=== PATIENT | male | born 2000 | race Caucasian/White ===

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

== ENCOUNTER 2019-03-21 17:32 | Emergency (ER) | payer OTHER ==
[2019-03-21 18:06] VITALS: RESP 18
[2019-03-21 18:57] LABS: Amorphous Sediment,Urine Few /hpf; Appearance,Urine Turbid (Clear); Bacteria,Urine Few /hpf; Bilirubin,Urine Negative (Negative); Blood,Urine Negative (Negative); Color,Urine Yellow; Glucose,Urine (UA) Negative (Negative); Ketones,Urine Negative (Negative); Leukocyte Esterase,Urine Negative (Negative); Mucus,Urine Many /hpf; Nitrite,Urine Negative (Negative); Protein,Urine Trace (Negative); WBC,Urine 3 /hpf (0-5)
[2019-03-21 19:04] LABS: Amphetamine Screen,Urine Not Detected (NotDetected); Barbiturate Screen,Urine Not Detected (NotDetected); Benzodiazepines Screen,Urine Not Detected (NotDetected); Cocaine Screen,Urine Not Detected (NotDetected); Methadone Screen, Urine Not Detected (NotDetected); Opiate Screen,Urine Not Detected (NotDetected); Oxycodone Screen, Urine Not Detected (NotDetected); Phencyclidine Screen,Urine Not Detected (NotDetected); Tricyclic Antidepressant,Urine Not Detected (NotDetected); Urn Cannabinoid Scrn Detected (NotDetected)
--- NOTE | 2019-03-21 19:42 | ED ---
Psych HPI - General Source: patient, police Mode of arrival: ambulatory <Marcia Brown - Last Filed: 03/21/19 20:36> <Robert Castaneda - Last Filed: 03/21/19 23:10> - General Chief Complaint: Psychiatric Symptoms Stated Complaint: MENTALHEALTH Time Seen by Provider: 03/21/19 18:07 - History of Present Illness Initial Comments: 18-year-old male with history of depression presents today for chief complaint suicidal ideation. 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 Patient denies doing this. Patient states he did do this a few weeks ago because he was feeling suicidal for depression. Patient states that the [employer] came to his house at that time however he told them that he was not suicidal in the left. Patient denies any crisis homicidal ideation. Patient states he has suffered with depression. Remaining review of systems negative patient has no other complaints. Patient agreeable to EPS evaluation. (Marcia Brown) - Related Data Home Medications Medication Instructions Recorded Confirmed No Known Home Medications 03/21/19 03/21/19 Allergies Allergy/AdvReac Type Severity Reaction Status Date / Time venom-honey bee Allergy Anaphylaxis Verified 03/21/19 19:11 [bee venom (honey bee)] Review of Systems ROS Other: All systems not noted in ROS Statement are negative. <Marcia Brown - Last Filed: 03/21/19 20:36> ROS Other: All systems not noted in ROS Statement are negative. <Robert Castaneda - Last Filed: 03/21/19 23:10> ROS Statement: Those systems with pertinent positive or pertinent negative responses have been documented in the HPI. Past Medical History Past Medical History: No Reported History Additional Past Medical History / Comment(s): adhd History of Any Multi-Drug Resistant Organisms: None Reported Past Surgical History: Ear Surgery, Orthopedic Surgery Past Psychological History: ADD/ADHD Smoking Status: Current every day smoker Past Alcohol Use History: None Reported Past Drug Use History: None Reported <Marcia Brown - Last Filed: 03/21/19 20:36> General Exam Limitations: no limitations <Marcia Brown - Last Filed: 03/21/19 20:36> - General Exam Comments Initial Comments: General: The patient is awake and alert, in no distress, and does not appear acutely ill. Eye: +3 mm pupils are equal, round and reactive to light, extra-ocular movements are intact. No nystagmus. There is normal conjunctiva bilaterally. No signs of icterus. Ears, nose, mouth and throat: There are moist mucous membranes and no oral lesions. Neck: The neck is supple, there is no tenderness or JVD. No lacerations abrasions or redness of the neck. Cardiovascular: There is a regular rate and rhythm. No murmur, rub or gallop is appreciated. Respiratory: Lungs are clear to auscultation, respirations are non-labored, breath sounds are equal. No wheezes, stridor, rales, or rhonchi. Gastrointestinal: Soft, non-distended, non-tender abdomen without masses or organomegaly noted. There is no rebound or guarding present. Musculoskeletal: Normal ROM, no tenderness. Strength 5/5. Sensation intact. Pulses equal bilaterally 2+. Neurological: A&O x 3. CN II-XII intact, There are no obvious motor or sensory deficits. Coordination appears grossly intact. Speech is normal. Skin: Skin is warm and dry and no rashes or lesions are noted. Psychiatric: Cooperative, appropriate mood & affect, normal judgment. (Marcia Brown) Course <Robert Castaneda - Last Filed: 03/21/19 23:10> Vital Signs 03/21/19 18:03 Temperature 98.3 F Pulse Rate 108 H Respiratory 18 Rate Blood Pressure 166/67 O2 Sat by Pulse 98 Oximetry - Reevaluation(s) Reevaluation #1: 03/21/19 23:10 Medical record is reviewed and patient was made medically clear 03/21/19 23:10 patient was deemed stable for discharge psychiatry (Robert Castaneda) Medical Decision Making <Marcia Brown - Last Filed: 03/21/19 20:36> <Robert Castaneda - Last Filed: 03/21/19 23:10> - Medical Decision Making 18-year-old male presenting for psychiatric evaluation. Patient petitioned by his . Patient threatened suicide and attempted Stephie around his neck. Patient admits doing this previously. Patient amidst of depression and life stressors. Patient has no other complaints physical examination unremarkable. No evidence of neck injury. Patient will be medically cleared previous evaluation. Sign out patient's care to Dr. Castaneda at 8:30PM given shift change. (Marcia Brown) 17 male seen evaluated with psychiatry, patient stable for discharge home, not certain currently suicidal (Robert Castaneda) - Lab Data Lab Results 03/21/19 Range/Units 18:40 Urine Color Yellow Urine Appearance Turbid (Clear) Urine pH 7.0 (5.0-8.0) Ur Specific [place] 1.020 (1.001-1.035) Urine Protein Trace H (Negative) Urine Glucose (UA) Negative (Negative) Urine Ketones Negative (Negative) Urine Blood Negative (Negative) Urine Nitrite Negative (Negative) Urine Bilirubin Negative (Negative) Urine Urobilinogen 4.0 (<2.0) mg/dL Ur Leukocyte Esterase Negative (Negative) Urine WBC 3 (0-5) /hpf Amorphous Sediment Few H (None) /hpf Urine Bacteria Few H (None) /hpf Urine Mucus Many H (None) /hpf Urine Opiates Screen Not Detected (NotDetected) Ur Oxycodone Screen Not Detected (NotDetected) Urine Methadone Screen Not Detected (NotDetected) Ur Propoxyphene Screen Not Detected (NotDetected) Ur Barbiturates Screen Not Detected (NotDetected) U Tricyclic Antidepress Not Detected (NotDetected) Ur Phencyclidine Scrn Not Detected (NotDetected) Ur Amphetamines Screen Not Detected (NotDetected) U Methamphetamines Scrn Not Detected (NotDetected) U Benzodiazepines Scrn Not Detected (NotDetected) Urine Cocaine Screen Not Detected (NotDetected) U Marijuana (THC) Screen Detected H (NotDetected) Disposition <Marcia Brown - Last Filed: 03/21/19 20:36> Is patient prescribed a controlled substance at d/c from ED?: No <Robert Castaneda - Last Filed: 03/21/19 23:10> Clinical Impression: Depression Disposition: HOME SELF-CARE Condition: Fair Instructions (If sedation given, give patient instructions): Depression (ED) Referrals: Amrit Blum MD [Primary Care Provider] - 1-2 days
[2019-03-21 23:39] VITALS: BP 117/63; PULSE 65; TEMP 97.8
== END 2019-03-21 23:33 | disposition home or self-care (01) ==
LOC: EC 17:32 → EEVIPCON 17:32 → EC 23:33
DX: F32.9 Major depressive disorder, single episode, unspecified (principal); R45.851 Suicidal ideations; Z63.79 Other stressful life events affecting family and household; F17.200 Nicotine dependence, unspecified, uncomplicated; Z91.030 Bee allergy status
CPT/HCPCS: 80306; 81001; 82075; 99285

== ENCOUNTER 2019-04-15 02:24 | Emergency (ER) | payer OTHER ==
[2019-04-15 02:31] VITALS: BP 116/67; PULSE 90; RESP 18; TEMP 97.7
[2019-04-15] MEDS ORDERED: ACETAMINOPHEN TAB 500 MG TAB PO STA (02:52)
--- NOTE | 2019-04-15 03:22 | CT ---
EXAMINATION TYPE: CT brain kell giang con DATE OF EXAM: 04/15/2019 COMPARISON: None HISTORY: headache with neck pain. CT DLP: 1414.5 mGycm Automated exposure control for dose reduction was used. TECHNIQUE: CT scan of the head and cervical spine are performed without contrast. FINDINGS: Ventricles and sulci appear normal. There is no mass effect nor midline shift. There is n o sign of intracranial hemorrhage. The calvarium is intact. The cervical vertebra have normal spacing and alignment. Posterior elements are intact. Facet joints appear normal. The skull base is intact. There is no bony destructive process. IMPRESSION: Negative CT scan of the brain. Negative CT scan cervical spine. No fracture.
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
== END 2019-04-15 03:53 | disposition home or self-care (01) ==
LOC: EC 02:24
DX: S06.0X0A Concussion without loss of consciousness, initial encounter (principal); M54.2 Cervicalgia; Z87.891 Personal history of nicotine dependence; Z91.030 Bee allergy status; V18.4XXA Pedal cycle driver injured in noncollision transport accident in traffic accident, initial encounter; Y93.89 Activity, other specified
CPT/HCPCS: 70450; 72125; 99284

== ENCOUNTER 2020-03-13 15:56 | Emergency (ER) | payer OTHER ==
[2020-03-13 16:07] VITALS: BP 126/60; TEMP 99.5
--- NOTE | 2020-03-13 17:18 | XR ---
EXAMINATION TYPE: XR chest 2V DATE OF EXAM: 03/13/2020 CLINICAL HISTORY: Cough TECHNIQUE: Frontal and lateral views of the chest are obtained. COMPARISON: 12/09/2018 chest radiograph FINDINGS: The cardiomediastinal silhouette is within normal limits for size. Pulmonary vasculature i s normal. There is no focal air space opacity, pleural effusion, or pneumothorax seen. The osseous st ructures are intact. IMPRESSION: No acute cardiopulmonary process.
--- NOTE | 2020-03-13 17:25 | ED ---
URI HPI - General Chief Complaint: Upper Respiratory Infection Stated Complaint: fever, congestion Time Seen by Provider: 03/13/20 16:07 Source: patient Mode of arrival: ambulatory Limitations: no limitations - History of Present Illness Initial Comments: 19yo male with no significant PMH presenting to the ER today for cc of cough, congestion and fever. Patient states for the past 2 days he has had nasal congestion, mild cough and has felt as though he has had a fever, denies recorded temperature. Patient denies nausea, vomiting, diarrhea. Patient denies chest pain, SOB. Patient appears well no acute distress. Patient denies sore throat, ear pain, neck stiffness, headaches. - Related Data Home Medications Medication Instructions Recorded Confirmed No Known Home Medications 03/21/19 03/21/19 Allergies Allergy/AdvReac Type Severity Reaction Status Date / Time venom-honey bee Allergy Anaphylaxis Verified 03/13/20 16:06 [bee venom (honey bee)] Review of Systems ROS Statement: Those systems with pertinent positive or pertinent negative responses have been documented in the HPI. ROS Other: All systems not noted in ROS Statement are negative. Past Medical History Past Medical History: No Reported History Additional Past Medical History / Comment(s): adhd History of Any Multi-Drug Resistant Organisms: None Reported Past Surgical History: Ear Surgery, Orthopedic Surgery Additional Past Surgical History / Comment(s): 2 menisus repairs, Past Psychological History: ADD/ADHD Smoking Status: Former smoker, Vaper Past Alcohol Use History: None Reported Past Drug Use History: Marijuana General Exam - General Exam Comments Initial Comments: General: The patient is awake and alert, in no distress, and does not appear acutely ill. Eye: +3 mm pupils are equal, round and reactive to light, extra-ocular movements are intact. No nystagmus. There is normal conjunctiva bilaterally. No signs of icterus. No photophobia Ears, nose, mouth and throat: There are moist mucous membranes and no oral lesions. Oropharynx was not erythematous there is no tonsillar enlargement exudates or lesions. Uvula midline. No anterior cervical lymphadenopathy. Rhinorrhea, clear and bilateral nares. No tripoding, no drooling. Neck: The neck is supple, there is no tenderness or JVD. No nuchal rigidity Cardiovascular: There is a regular rate and rhythm. No murmur, rub or gallop is appreciated. Respiratory: Lungs are clear to auscultation, respirations are non-labored, breath sounds are equal. No wheezes, stridor, rales, or rhonchi. No retractions or abdominal breathing. Gastrointestinal: Soft, non-distended, non-tender abdomen without masses or organomegaly noted. There is no rebound or guarding present. Bowel sounds are unremarkable. Musculoskeletal: Normal ROM, no tenderness. Strength 5/5. Sensation intact. Radial pulses equal bilaterally 2+. Neurological: A&O x 3. CN II-XII intact grossly, There are no obvious motor or sensory deficits. Coordination appears grossly intact. Speech appears normal, no muffling. Skin: Skin is warm and dry and no rashes or lesions are noted. No extremity edema Psychiatric: Cooperative Limitations: no limitations Course Vital Signs 03/13/20 03/13/20 16:03 17:30 Temperature 99.5 F Pulse Rate 93 81 Respiratory 18 16 Rate Blood Pressure 126/60 O2 Sat by Pulse 96 99 Oximetry Medical Decision Making - Medical Decision Making 19yo male presenting for cc of cough, nasal congestion. CXR clear .lungs clear. throat nonerythematous. uvula midline. Patient appears wellnontoxic. Afebrile. L signs within acceptable limits recommend outpatient symptomatically. Patient is agreeable to this care plan discharge at this time. Disposition Clinical Impression: Cough, Congestion of nasal sinus Disposition: HOME SELF-CARE Condition: Good Instructions (If sedation given, give patient instructions): Upper Respiratory Infection (ED) Additional Instructions: Please use medication as discussed. Please follow-up with family doctor in the next 2 days. Please return to emergency room if the symptoms increase or worsen or for any other concerns. Is patient prescribed a controlled substance at d/c from ED?: No Referrals: Amrit Blum MD [Primary Care Provider] - 1-2 days Time of Disposition: 17:25
[2020-03-13 17:31] VITALS: PULSE 81; RESP 16
== END 2020-03-13 17:31 | disposition home or self-care (01) ==
LOC: EC 15:56
DX: R05 Cough (principal); R09.81 Nasal congestion; R50.9 Fever, unspecified; J34.89 Other specified disorders of nose and nasal sinuses; Z87.891 Personal history of nicotine dependence; Z91.030 Bee allergy status
CPT/HCPCS: 71046; 99283

== ENCOUNTER 2020-04-19 15:11 | Emergency (ER) | payer OTHER ==
[2020-04-19] MEDS ORDERED: SODIUM CHLORIDE 0.9% 1,000 ML IV ONE (16:07)
[2020-04-19] MEDS ORDERED: ONDANSETRON 4 MG/2 ML VIAL IVP STA (16:08)
[2020-04-19 17:25] LABS: Basophils # (A) 0.1 k/uL (0-0.2); Basophils % (A) 1 %; Eosinophils # (A) 0.2 k/uL (0-0.7); Eosinophils % (A) 3 %; HCT 49.9 % (39.0-53.0); HGB 17.5 gm/dL (13.0-17.5); Lymphocytes # (A) 2.2 k/uL (1.0-4.8); Lymphocytes % (A) 33 %; MCH 30.5 pg (25.0-35.0); MCV 87.3 fL (80.0-100.0); Mean Platelet Volume 6.7; Monocytes # (A) 0.4 k/uL (0-1.0); Monocytes % (A) 6 %; Neutrophils # (A) 3.6 k/uL (1.3-7.7); Neutrophils % (A) 55 %; Platelet Count 299 k/uL (150-450); RBC 5.72 m/uL (4.30-5.90); RDW 12.5 % (11.5-15.5); WBC 6.6 k/uL (4.0-11.0)
[2020-04-19 17:38] LABS: ALT 32 U/L (4-49); AST 44 U/L (17-59); African American GFR (CKD) >90 (>60 ml/min/1.73 sqM); Albumin 4.9 g/dL (3.5-5.0); Alkaline Phosphatase 65 U/L (38-126); Anion Gap 7 mmol/L; Blood Urea Nitrogen 17 mg/dL (9-20); Calcium 9.6 mg/dL (8.4-10.2); Carbon Dioxide 27 mmol/L (22-30); Chloride 106 mmol/L (98-107); Glucose 91 mg/dL (74-99); Non-African American GFR(CKD) >90 (>60 ml/min/1.73 sqM); Sodium 140 mmol/L (137-145); Total Bilirubin 1.4 mg/dL (0.2-1.3); Total Protein 7.8 g/dL (6.3-8.2)
[2020-04-19 17:42] LABS: Potassium 4.7 mmol/L (3.5-5.1)
--- NOTE | 2020-04-19 18:06 | ED ---
General Adult HPI - General Chief complaint: Upper Respiratory Infection Stated complaint: Abd Pain, Cough Time Seen by Provider: 04/19/20 15:20 Source: patient, RN notes reviewed, old records reviewed Mode of arrival: ambulatory Limitations: no limitations - History of Present Illness Initial comments: 19-year-old male patient proceeded for a chief complaint of cough as well as right lower quadrant abdominal pain. Patient reports cough for about 3 days. Reports that it was initially dull achy right lower quadrant pain which is now gotten worse and is somewhat more sharp in nature. Port some nausea without emesis. Denies any other acute complaints. Denies any known sick contacts. Systemic: Pt denies fatigue, fever/chills, rash. Pt denies weakness, night sweats, weight loss. Neuro: Pt denies headache, visual disturbances, syncope or pre-syncope. HEENT: Pt denies ocular discharge or irritation, otalgia, rhinorrhea, pharyngitis or notable lymphadenopathy. Cardiopulmonary: Pt denies chest pain, SOB, heart palpitations, dyspnea on exertion. Abdominal/GI: Pt denies v/d. : Pt denies dysuria, burning w/ urination, frequency/urgency. Denies new onset urinary or bowel incontinence. MSK: Pt denies myalgia, loss of strength or function in extremities. Neuro: Pt denies new onset weakness, paresthesias. - Related Data Home Medications Medication Instructions Recorded Confirmed No Known Home Medications 03/21/19 04/19/20 Allergies Allergy/AdvReac Type Severity Reaction Status Date / Time venom-honey bee Allergy Anaphylaxis Verified 04/19/20 15:44 [bee venom (honey bee)] Review of Systems ROS Statement: Those systems with pertinent positive or pertinent negative responses have been documented in the HPI. ROS Other: All systems not noted in ROS Statement are negative. Past Medical History Past Medical History: No Reported History Additional Past Medical History / Comment(s): adhd History of Any Multi-Drug Resistant Organisms: None Reported Past Surgical History: Ear Surgery, Orthopedic Surgery Additional Past Surgical History / Comment(s): 2 menisus repairs, Past Psychological History: ADD/ADHD Smoking Status: Former smoker, Vaper Past Alcohol Use History: None Reported Past Drug Use History: Marijuana General Exam - General Exam Comments Initial Comments: Constitutional: NAD, AOX3, Pt has pleasant affect. HEENT: NC/AT, trachea midline, neck supple, no lymphadenopathy. External ears appear normal, without discharge. Mucous membranes moist. Eyes PERRLA, EOM intact. There is no scleral icterus. No pallor noted. Cardiopulmonary: RRR, no murmurs, rubs or gallops, no JVD noted. Lungs CTAB in anterior and posterior lee. No peripheral edema. Abdominal exam: Abdomen soft and non-distended. Abdomen mildly tender to palpation in RLQ region. Bowel sounds active in LLQ. No hepatosplenomegaly. No ecchymosis Neuro: CN II-XII grossly intact. No nuchal rigidity. MSK: No posterior calf tenderness bilaterally, homans sign negative bilaterally. Posterior tibialis and radial pulse +2 bilaterally. Sensation intact in upper and lower extremities. Full active ROM in upper and lower extremities, 5/5 stregnth. Limitations: no limitations Course Vital Signs 04/19/20 04/19/20 04/19/20 15:14 16:16 17:16 Temperature 99.0 F 97.5 F L Pulse Rate 77 73 Respiratory 18 18 16 Rate Blood Pressure 114/75 117/64 O2 Sat by Pulse 99 97 Oximetry 04/19/20 18:31 Temperature 98.3 F Pulse Rate 68 Respiratory 16 Rate Blood Pressure 108/58 O2 Sat by Pulse 100 Oximetry Medical Decision Making - Medical Decision Making 19-year-old male patient To ED for evaluation of 3 days of cough and then 2 days of abdominal pain. Denies any other acute complaints. Patient was sent home from work because he had a 99.3 temperature. lungs are clear to auscultation abnormality, right lower quadrant region. Lymph investigations noncompressive. CT abdomen and pelvis negative for acute process. Chest x-ray negative for acute process. Covid test pending. Will be discharged and will ret urn to ED with any worsening symptoms. Case discussed with Dr. Boogie. - Lab Data Result diagrams: 04/19/20 16:55 04/19/20 16:55 Lab Results 04/19/20 04/19/20 04/19/20 Range/Units 16:55 16:55 16:55 WBC 6.6 (4.0-11.0) k/uL RBC 5.72 (4.30-5.90) m/uL Hgb 17.5 (13.0-17.5) gm/dL Hct 49.9 (39.0-53.0) % MCV 87.3 (80.0-100.0) fL MCH 30.5 (25.0-35.0) pg MCHC 35.0 (31.0-37.0) g/dL RDW 12.5 (11.5-15.5) % Plt Count 299 (150-450) k/uL Neutrophils % 55 % Lymphocytes % 33 % Monocytes % 6 % Eosinophils % 3 % Basophils % 1 % Neutrophils # 3.6 (1.3-7.7) k/uL Lymphocytes # 2.2 (1.0-4.8) k/uL Monocytes # 0.4 (0-1.0) k/uL Eosinophils # 0.2 (0-0.7) k/uL Basophils # 0.1 (0-0.2) k/uL Sodium 140 (137-145) mmol/L Potassium 4.7 (3.5-5.1) mmol/L Chloride 106 (98-107) mmol/L Carbon Dioxide 27 (22-30) mmol/L Anion Gap 7 mmol/L BUN 17 (9-20) mg/dL Creatinine 0.72 (0.66-1.25) mg/dL Est GFR (CKD-EPI)AfAm >90 (>60 ml/min/1.73 sqM) Est GFR (CKD-EPI)NonAf >90 (>60 ml/min/1.73 sqM) Glucose 91 (74-99) mg/dL Plasma Lactic Acid David 1.4 (0.7-2.0) mmol/L Calcium 9.6 (8.4-10.2) mg/dL Total Bilirubin 1.4 H (0.2-1.3) mg/dL AST 44 (17-59) U/L ALT 32 (4-49) U/L Alkaline Phosphatase 65 (38-126) U/L Total Protein 7.8 (6.3-8.2) g/dL Albumin 4.9 (3.5-5.0) g/dL Lipase 49 (23-300) U/L Disposition Clinical Impression: Cough, Abdominal pain Disposition: HOME SELF-CARE Condition: Stable Instructions (If sedation given, give patient instructions): Acute Cough (ED) Additional Instructions: Follow up with PCP tomorrow. Self quarantine until COVID test results. Return to ED with any worsening symptoms. Is patient prescribed a controlled substance at d/c from ED?: No Referrals: Amrit Blum MD [Primary Care Provider] - 1-2 days
--- NOTE | 2020-04-19 18:13 | CT ---
EXAMINATION TYPE: CT abdomen pelvis w con DATE OF EXAM: 04/19/2020 COMPARISON: None HISTORY: Abdominal pain. cough CT DLP: 786.8 mGycm Automated exposure control for dose reduction was used. CONTRAST: Performed with IV Contrast, patient injected with 100 mL of Isovue 300. Lung bases are clear. There is no pleural effusion. Heart size is normal. There is no pericardial eff usion. Liver spleen stomach pancreas gallbladder appear normal. Bile ducts are not dilated. There is no adrenal mass. Kidneys show satisfactory contrast opacification. There is no hydronephrosi s. Delayed images show normal renal excretion. There is no retroperitoneal adenopathy. Appendix is po sterior and appears normal. Ureters are not dilated. Bladder distends smoothly. There is no inguinal hernia. There is no free fluid in the pelvis. There is no evidence of a pelvic mass. There is no mesenteric edema. There is no ascites or free air. There is no bowel obstruction. The bon y pelvis appears intact. Hip joints appear normal. The lumbar vertebra have normal spacing and alignm ent. Posterior elements are intact. There is no evidence of compression fracture. IMPRESSION: Negative CT scan of the abdomen and pelvis. Normal appendix.
--- NOTE | 2020-04-19 18:59 | XR ---
EXAMINATION TYPE: XR chest 2V DATE OF EXAM: 04/19/2020 COMPARISON: 03/13/2020 HISTORY: Abdominal pain. Cough TECHNIQUE: FINDINGS: Heart and mediastinum are normal. Lungs are clear. Diaphragm is normal. Bony thorax appears normal. IMPRESSION: Normal chest. No change.
[2020-04-19 19:24] VITALS: BP 112/64; PULSE 72; RESP 18; TEMP 97.9
== END 2020-04-19 19:20 | disposition home or self-care (01) ==
LOC: EC 15:11
DX: R05 Cough (principal); R10.31 Right lower quadrant pain; Z91.030 Bee allergy status; Z87.891 Personal history of nicotine dependence; Z20.828 Contact with and (suspected) exposure to other viral communicable diseases
CPT/HCPCS: 99284; 96374; 96361 ×2; 80053; 83605; 83690; 85025; 71046; 74177; U0003; J2405; Q9967

== ENCOUNTER 2020-04-26 18:44 | Emergency (ER) | payer OTHER ==
--- NOTE | 2020-04-26 19:27 | ED ---
General Adult HPI - General Source: patient, RN notes reviewed, old records reviewed Mode of arrival: ambulatory Limitations: no limitations <Ryan Jeffries - Last Filed: 04/26/20 21:27> <Robert Toribio - Last Filed: 04/27/20 11:00> - General Chief complaint: Psychiatric Symptoms Stated complaint: Doesnt feel safe Time Seen by Provider: 04/26/20 19:05 - History of Present Illness Initial comments: 19-year-old male presenting with worsening depression and suicidal ideation. Patient is currently homeless. He states that his grandfather secondary his been dealing with some issues at home. He's had increased thoughts of suicide. He denies a suicide attempt. Denies drugs or alcohol. No physical complaints. (Ryan Jeffries) - Related Data Home Medications Medication Instructions Recorded Confirmed No Known Home Medications 03/21/19 04/26/20 Allergies Allergy/AdvReac Type Severity Reaction Status Date / Time venom-honey bee Allergy Anaphylaxis Verified 04/26/20 21:09 [bee venom (honey bee)] Review of Systems ROS Other: All systems not noted in ROS Statement are negative. <Ryan Jeffries - Last Filed: 04/26/20 21:27> ROS Other: All systems not noted in ROS Statement are negative. <Robert Toribio - Last Filed: 04/27/20 11:00> ROS Statement: Those systems with pertinent positive or pertinent negative responses have been documented in the HPI. Past Medical History Past Medical History: No Reported History Additional Past Medical History / Comment(s): adhd History of Any Multi-Drug Resistant Organisms: None Reported Past Surgical History: Ear Surgery, Orthopedic Surgery Additional Past Surgical History / Comment(s): 2 menisus repairs, Past Psychological History: ADD/ADHD, Depression Smoking Status: Former smoker, Vaper Past Alcohol Use History: None Reported Past Drug Use History: Marijuana <Ryan Jeffries - Last Filed: 04/26/20 21:27> General Exam Limitations: no limitations General appearance: alert, in no apparent distress Head exam: Present: atraumatic, normocephalic Eye exam: Present: normal appearance, PERRL ENT exam: Present: normal exam Neck exam: Present: normal inspection. Absent: tenderness, meningismus Respiratory exam: Present: normal lung sounds bilaterally, respiratory distress Cardiovascular Exam: Present: regular rate, normal rhythm GI/Abdominal exam: Present: soft. Absent: distended, tenderness, guarding Extremities exam: Present: normal inspection, normal capillary refill. Absent: pedal edema, calf tenderness Neurological exam: Present: alert, oriented X3, CN II-XII intact. Absent: motor sensory deficit Psychiatric exam: Present: depressed, suicidal ideation Skin exam: Present: warm, dry, intact. Absent: cyanosis, diaphoretic <Ryan Jeffries - Last Filed: 04/26/20 21:27> Course <Ryan Jeffries - Last Filed: 04/26/20 21:27> Vital Signs 04/26/20 04/27/20 18:49 05:56 Temperature 98.0 F 98.0 F Pulse Rate 94 68 Respiratory 18 16 Rate Blood Pressure 125/75 87/52 O2 Sat by Pulse 98 99 Oximetry - Reevaluation(s) Reevaluation #1: 04/26/20 2300 Patient's care is signed out to Dr. Tate at shift change awaiting EPS evaluation. (Ryan Jeffries) Medical Decision Making <Robert Toribio - Last Filed: 04/27/20 11:00> - Medical Decision Making EPS came and evaluated the patient and a safety plan was made and the patient was agreeable. Patient also states she is not suicidal. (Robert Toribio) - Lab Data Lab Results 04/26/20 Range/Units 19:23 Urine Opiates Screen Not Detected (NotDetected) Ur Oxycodone Screen Not Detected (NotDetected) Urine Methadone Screen Not Detected (NotDetected) Ur Propoxyphene Screen Not Detected (NotDetected) Ur Barbiturates Screen Not Detected (NotDetected) U Tricyclic Antidepress Not Detected (NotDetected) Ur Phencyclidine Scrn Not Detected (NotDetected) Ur Amphetamines Screen Not Detected (NotDetected) U Methamphetamines Scrn Not Detected (NotDetected) U Benzodiazepines Scrn Not Detected (NotDetected) Urine Cocaine Screen Not Detected (NotDetected) U Marijuana (THC) Screen Detected H (NotDetected) Disposition <Ryan Jeffries - Last Filed: 04/26/20 21:27> Is patient prescribed a controlled substance at d/c from ED?: No Time of Disposition: 10:59 <Robert Toribio - Last Filed: 04/27/20 11:00> Clinical Impression: Situational depression Disposition: HOME SELF-CARE Condition: Good Instructions (If sedation given, give patient instructions): Depression (ED) Referrals: Amrit Blum MD [Primary Care Provider] - 1-2 days
[2020-04-26 20:12] LABS: Amphetamine Screen,Urine Not Detected (NotDetected); Barbiturate Screen,Urine Not Detected (NotDetected); Benzodiazepines Screen,Urine Not Detected (NotDetected); Cocaine Screen,Urine Not Detected (NotDetected); Methadone Screen, Urine Not Detected (NotDetected); Opiate Screen,Urine Not Detected (NotDetected); Oxycodone Screen, Urine Not Detected (NotDetected); Phencyclidine Screen,Urine Not Detected (NotDetected); Tricyclic Antidepressant,Urine Not Detected (NotDetected); Urn Cannabinoid Scrn Detected (NotDetected)
[2020-04-27 11:08] VITALS: BP 108/62; PULSE 66; RESP 18; TEMP 98.2
== END 2020-04-27 11:19 | disposition home or self-care (01) ==
LOC: EC 18:44
DX: F43.21 Adjustment disorder with depressed mood (principal); R45.851 Suicidal ideations; Z91.030 Bee allergy status; Z87.891 Personal history of nicotine dependence; Z59.0 Homelessness
CPT/HCPCS: 80306; 82075; 99285

== ENCOUNTER 2020-12-07 11:15 | Inpatient (IN) | payer MEDICAID, OTHER ==
--- NOTE | 2020-12-07 12:31 | ED ---
General Adult HPI - General Chief complaint: Psychiatric Symptoms Stated complaint: EPS eval Time Seen by Provider: 12/07/20 11:20 Source: patient, family, RN notes reviewed Mode of arrival: ambulatory Limitations: no limitations - History of Present Illness Initial comments: This is a 20-year-old male who presents emergency Department with his grandmot her. Patient states that he thinks people are following him and that this Is Also Spiking. Grandmother States He Became Threatening to His Mother and Sister Yesterday and Also Has Had Episodes Where He States He Wants to Kill Himself. Patient Currently Denies suicidal ideations. Grandmother states that he is becoming very paranoid and constantly is lying to the family. Patient himself denies any drug use or alcohol use. Patient denies any physical complaints today. - Related Data Home Medications Medication Instructions Recorded Confirmed No Known Home Medications 03/21/19 12/07/20 Allergies Allergy/AdvReac Type Severity Reaction Status Date / Time venom-honey bee Allergy Anaphylaxis Verified 12/07/20 12:29 [bee venom (honey bee)] Review of Systems ROS Statement: Those systems with pertinent positive or pertinent negative responses have been documented in the HPI. ROS Other: All systems not noted in ROS Statement are negative. Past Medical History Past Medical History: No Reported History Additional Past Medical History / Comment(s): adhd History of Any Multi-Drug Resistant Organisms: None Reported Past Surgical History: Ear Surgery, Orthopedic Surgery Additional Past Surgical History / Comment(s): 2 menisus repairs, Past Psychological History: ADD/ADHD Smoking Status: Former smoker, Vaper Past Alcohol Use History: None Reported Past Drug Use History: Marijuana General Exam - General Exam Comments Initial Comments: GENERAL: Patient is well-developed and well-nourished. Patient is nontoxic and well- hydrated and is in mild distress. ENT: Neck is soft and supple. No significant lymphadenopathy is noted. Oropharynx is clear. Moist mucous membranes. Neck has full range of motion without eliciting any pain. EYES: The sclera were anicteric and conjunctiva were pink and moist. Extraocular movements were intact and pupils were equal round and reactive to light. Eyelids were unremarkable. PULMONARY: Unlabored respirations. Good breath sounds bilaterally. No audible rales rhonchi or wheezing was noted. CARDIOVASCULAR: There is a regular rate and rhythm without any murmurs gallops or rubs. ABDOMEN: Soft and nontender with normal bowel sounds. SKIN: Skin is clear with no lesions or rashes and otherwise unremarkable. NEUROLOGIC: Patient is alert and oriented x3. Cranial nerves II through XII are grossly intact. Motor and sensory are also intact. Normal speech, volume and content. Symmetrical smile. MUSCULOSKELETAL: Normal extremities with adequate strength and full range of motion. LYMPHATICS: No significant lymphadenopathy is noted PSYCHIATRIC: Normal psychiatric evaluation. Limitations: no limitations Course Vital Signs 12/07/20 11:17 Temperature 97.5 F L Pulse Rate 65 Respiratory 18 Rate Blood Pressure 137/91 O2 Sat by Pulse 98 Oximetry Medical Decision Making - Medical Decision Making I did a clinical certification on this patient to get the patient admitted. EPS evaluated the patient and determined the patient needed to be admitted. Disposition Clinical Impression: Acute psychosis Disposition: ADMITTED IP TO THIS HOSP Referrals: None,Stated [Primary Care Provider] - 1-2 days Time of Disposition: 15:02
[2020-12-07] MEDS ORDERED: MAG HYDROX/AL HYDROX/SIMETH 30 ML CUP PO PRN (16:53)
[2020-12-07] MEDS ORDERED: MAGNESIUM HYDROXIDE 2,400 MG/10 ML CUP PO PRN (16:53)
[2020-12-07] MEDS ORDERED: haloperidoL 5 MG TAB PO PRN (16:58)
[2020-12-07] MEDS ORDERED: HALOPERIDOL LACTATE 5 MG/ML 1 ML VIAL IM PRN (16:59)
[2020-12-07] MEDS ORDERED: LORazepam 2 MG/ML INJ IM PRN (16:59)
[2020-12-07 17:09] LABS: Amphetamine Screen,Urine Detected (NotDetected); Barbiturate Screen,Urine Not Detected (NotDetected); Benzodiazepines Screen,Urine Not Detected (NotDetected); Cocaine Screen,Urine Not Detected (NotDetected); Methadone Screen, Urine Not Detected (NotDetected); Opiate Screen,Urine Not Detected (NotDetected); Oxycodone Screen, Urine Not Detected (NotDetected); Phencyclidine Screen,Urine Not Detected (NotDetected); Tricyclic Antidepressant,Urine Not Detected (NotDetected); Urn Cannabinoid Scrn Detected (NotDetected)
[2020-12-07 17:58] VITALS: RESP 16
--- NOTE | 2020-12-08 03:23 | P.CONS ---
History of Present Illness - Reason for Consult Consult date: 12/08/20 - History of Present Illness Patient is a 20-year-old male with a PMH of ADHD and marijuana abuse who presented to the emergency room due to paranoid behavior. The patient was admitted to the mental health unit was seen and evaluated. The patient reports that he was concern for safety since he was having strange thoughts. He reported feeling better since his admission to the hospital. Denied any additional active complaints. Denied taking any medications at home. Denied chest pain, shortness of breath, fever, chills, cough, nausea, vomiting, abdominal pain, diarrhea. Reports smoking marijuana but denied methamphetamine use. Denied tobacco use. Review of systems: Pertinent positives and negatives as discussed in HPI, a complete review of systems was performed and all other systems are negative. Physical examination: General: non toxic, no distress, appears at stated age, normal weight Derm: no unusual rashes/lesions no unusual ecchymoses, warm, dry Head: atraumatic, normocephalic, symmetric Eyes: EOMI, no lid lag, anicteric sclera, pupils equal round reactive to light ENT: Nose and ears atraumatic, no thrush, no pharyngeal erythema Neck: No thyromegaly, no cervical lymphadenopathy, trachea midline, supple Mouth: no lip lesion, mucus membranes moist Cardiovascular: S1S2 reg, no murmur, positive posterior tibial pulse bilateral, no edema, capillary refill less than 2 seconds Lungs: CTA bilateral, no rhonchi, no rales , no accessory muscle use Abdominal: soft, nontender to palpation, no guarding, no appreciable organomegaly, normal bowel sounds Ext: no gross muscle atrophy, muscle strength 5 out of 5 in all 4 extremities grossly, no contractures, Neuro: CN II-XI grossly intact, light touch intact all 4 extremities, finger to nose within normal limits, Psych: Alert, oriented, appropriate affect Assessment/plan Polysubstance abuse -Advised on the importance of cessation Psychosis -As per psychiatry Thank you for allowing us to participate in the care of this patient. We will follow peripherally. Do not hesitate to contact us with questions. Someone can be reached from the [facility] hospitalist group at all hours of the day at [phone]. Past Medical History Past Medical History: No Reported History Additional Past Medical History / Comment(s): ADHD History of Any Multi-Drug Resistant Organisms: None Reported Past Surgical History: Ear Surgery, Orthopedic Surgery Additional Past Surgical History / Comment(s): 2 R meniscus repairs tubes in ears as child. Past Psychological History: ADD/ADHD Smoking Status: Current every day smoker Past Alcohol Use History: Rare Past Drug Use History: Marijuana Medications and Allergies Home Medications Medication Instructions Recorded Confirmed Type No Known Home Medications 03/21/19 12/07/20 History Allergies Allergy/AdvReac Type Severity Reaction Status Date / Time venom-honey bee Allergy Anaphylaxis Verified 12/07/20 12:29 [bee venom (honey bee)] Physical Exam Vitals: Vital Signs Temp Pulse Pulse Resp BP BP Pulse Ox 12/07/20 16:53 98 F 75 16 111/66 98 12/07/20 11:17 97.5 F L 65 18 137/91 98 Intake and Output 12/07/20 12/07/20 12/08/20 14:59 22:59 06:59 Other: Weight 79.379 kg 78 kg Results Labs: Abnormal Lab Results - Last 24 Hours (Table) 12/07/20 Range/Units 16:54 Ur Amphetamines Screen Detected H (NotDetected) U Methamphetamines Scrn Detected H (NotDetected) U Marijuana (THC) Screen Detected H (NotDetected)
[2020-12-08 08:09] LABS: Basophils # (A) 0.1 k/uL (0-0.2); Basophils % (A) 1 %; Eosinophils # (A) 0.2 k/uL (0-0.7); Eosinophils % (A) 3 %; HCT 49.3 % (39.0-53.0); HGB 17.6 gm/dL (13.0-17.5); Lymphocytes # (A) 2.2 k/uL (1.0-4.8); Lymphocytes % (A) 41 %; MCH 30.5 pg (25.0-35.0); MCHC 35.7 g/dL (31.0-37.0); MCV 85.5 fL (80.0-100.0); Mean Platelet Volume 6.6; Monocytes # (A) 0.4 k/uL (0-1.0); Monocytes % (A) 7 %; Neutrophils # (A) 2.5 k/uL (1.3-7.7); Neutrophils % (A) 47 %; Platelet Count 280 k/uL (150-450); RBC 5.77 m/uL (4.30-5.90); RDW 12.2 % (11.5-15.5); WBC 5.4 k/uL (3.8-10.6)
[2020-12-08 08:43] LABS: ALT 26 U/L (4-49); AST 27 U/L (17-59); African American GFR (CKD) >90 (>60 ml/min/1.73 sqM); Albumin 4.7 g/dL (3.5-5.0); Alkaline Phosphatase 70 U/L (38-126); Anion Gap 13 mmol/L; Blood Urea Nitrogen 18 mg/dL (9-20); Calcium 9.7 mg/dL (8.4-10.2); Carbon Dioxide 23 mmol/L (22-30); Chloride 104 mmol/L (98-107); Glucose 83 mg/dL (74-99); Non-African American GFR(CKD) >90 (>60 ml/min/1.73 sqM); Sodium 140 mmol/L (137-145); Total Bilirubin 1.2 mg/dL (0.2-1.3); Total Protein 7.3 g/dL (6.3-8.2)
[2020-12-08] MEDS: ARIPiprazole 5 MG TAB PO SCH ×2 (10:08→10:12)
--- NOTE | 2020-12-08 13:56 | P.HP ---
Psychiatric H&P - . H&P Date: 12/08/20 History & Physical: Allergies Allergy/AdvReac Type Severity Reaction Status Date / Time venom-honey bee Allergy Anaphylaxis Verified 12/07/20 12:29 [bee venom (honey bee)] Vital Signs Temp 98 F 12/07/20 16:53 Pulse 75 12/07/20 16:53 Resp 16 12/07/20 16:53 BP 111/66 12/07/20 16:53 Pulse Ox 98 12/07/20 16:53 Intake & Output 12/07/20 12/08/20 12/08/20 18:59 06:59 18:59 Weight 78 kg Laboratory Last Values WBC 5.4 k/uL (3.8-10.6) 12/08/20 07:20 RBC 5.77 m/uL (4.30-5.90) 12/08/20 07:20 Hgb 17.6 gm/dL (13.0-17.5) H 12/08/20 07:20 Hct 49.3 % (39.0-53.0) 12/08/20 07:20 MCV 85.5 fL (80.0-100.0) 12/08/20 07:20 MCH 30.5 pg (25.0-35.0) 12/08/20 07:20 MCHC 35.7 g/dL (31.0-37.0) 12/08/20 07:20 RDW 12.2 % (11.5-15.5) 12/08/20 07:20 Plt Count 280 k/uL (150-450) 12/08/20 07:20 MPV 6.6 12/08/20 07:20 Neutrophils % 47 % 12/08/20 07:20 Lymphocytes % 41 % 12/08/20 07:20 Monocytes % 7 % 12/08/20 07:20 Eosinophils % 3 % 12/08/20 07:20 Basophils % 1 % 12/08/20 07:20 Neutrophils # 2.5 k/uL (1.3-7.7) 12/08/20 07:20 Lymphocytes # 2.2 k/uL (1.0-4.8) 12/08/20 07:20 Monocytes # 0.4 k/uL (0-1.0) 12/08/20 07:20 Eosinophils # 0.2 k/uL (0-0.7) 12/08/20 07:20 Basophils # 0.1 k/uL (0-0.2) 12/08/20 07:20 Sodium 140 mmol/L (137-145) 12/08/20 07:20 Potassium 4.0 mmol/L (3.5-5.1) 12/08/20 07:20 Chloride 104 mmol/L (98-107) 12/08/20 07:20 Carbon Dioxide 23 mmol/L (22-30) 12/08/20 07:20 Anion Gap 13 mmol/L 12/08/20 07:20 BUN 18 mg/dL (9-20) 12/08/20 07:20 Creatinine 0.84 mg/dL (0.66-1.25) 12/08/20 07:20 Est GFR (CKD-EPI)AfAm >90 (>60 ml/min/1.73 sqM) 12/08/20 07:20 Est GFR (CKD-EPI)NonAf >90 (>60 ml/min/1.73 sqM) 12/08/20 07:20 Glucose 83 mg/dL (74-99) 12/08/20 07:20 Calcium 9.7 mg/dL (8.4-10.2) 12/08/20 07:20 Total Bilirubin 1.2 mg/dL (0.2-1.3) 12/08/20 07:20 AST 27 U/L (17-59) 12/08/20 07:20 ALT 26 U/L (4-49) 12/08/20 07:20 Alkaline Phosphatase 70 U/L (38-126) 12/08/20 07:20 Total Protein 7.3 g/dL (6.3-8.2) 12/08/20 07:20 Albumin 4.7 g/dL (3.5-5.0) 12/08/20 07:20 TSH 0.571 mIU/L (0.465-4.680) 12/08/20 07:20 Urine Opiates Screen Not Detected (NotDetected) 12/07/20 16:54 Ur Oxycodone Screen Not Detected (NotDetected) 12/07/20 16:54 Urine Methadone Screen Not Detected (NotDetected) 12/07/20 16:54 Ur Propoxyphene Screen Not Detected (NotDetected) 12/07/20 16:54 Ur Barbiturates Screen Not Detected (NotDetected) 12/07/20 16:54 U Tricyclic Antidepress Not Detected (NotDetected) 12/07/20 16:54 Ur Phencyclidine Scrn Not Detected (NotDetected) 12/07/20 16:54 Ur Amphetamines Screen Detected (NotDetected) H 12/07/20 16:54 U Methamphetamines Scrn Detected (NotDetected) H 12/07/20 16:54 U Benzodiazepines Scrn Not Detected (NotDetected) 12/07/20 16:54 Urine Cocaine Screen Not Detected (NotDetected) 12/07/20 16:54 U Marijuana (THC) Screen Detected (NotDetected) H 12/07/20 16:54 Coronavirus (PCR) Not Detected (Not Detectd) 12/07/20 17:30 12/08/20 13:44 Reason for admission: Patient stated that he feels unsafe and that weird things are happening. He thinks things are misplaced. He stated that he has seen the same car going in front of him over and over again. History of present illness: He stated that he started having problems just this week. He has also been drinking beer and smoking marijuana. He denied having this kind of experience ever before. Processed history: He stated he was never in a psychiatric hospital and this is a his first psychiatric admission. Family history: He stated he lives with his mother, father, sister and brother. He denied any history of mental illness in the family. He denied any history of suicide in the family. He denied any history of alcohol or drug abuse in the family. Medical history: He stated he has a history of attention deficit hyperactivity disorder and was on Concerta. He stated he took himself off of medication 4 years ago. He denied having any medical problems. Social history: He finished high school and has no college education. 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 He stated he was living with his grandparents in the past but now is homeless and lives on the [address]. Medication history: He stated the only medication he ever took was Concerta and denies history of having been on any other medication. Substance abuse history: He stated he drinks one beer a day and he has been smoking marijuana this week. He stated he smokes marijuana at nighttime because it relaxes him. Suicide or homicide thoughts: He denied having any suicidal or homicidal thoughts. He is extremely paranoid. History of psychological trauma: He denies a history of emotional, physical or sexual abuse ever. Legal history: He denied any involvement with law or police. ALLERGIES: He stated that he is ALLERGIC to bee stings. Mental status examination: He appears to be of his stated age and is in a daze. He has adequate speech language and communication skills. His mood is blank and affect is flat. He is partially cooperative with the examiner. He denies any auditory visual hallucinations but then stated that he has been seeing the same car going in front of him over and over again. He also appears to be delusional. He is alert and oriented to time place and person. He was able to do similarities and differences between common objects. He was able to interpret simple proverbs. He has no insight into his problems and his judgment is impaired. His impulse control is poor. His memory and other cognitive functions are intact. Diagnostic impression: Psychotic disorder not otherwise specified ADHD Cannabis abuse Rule out cannabis-induced psychosis Treatment recommendation. He will be started on her medication. He will be encouraged to participate in unit and milieu activities.
[2020-12-08] MEDS: LORazepam 1 MG TAB PO PRN (19:30)
[2020-12-08 23:23] LABS: Chol/HDL Ratio 4.03; Cholesterol 137 mg/dL (0-200); LDL Cholesterol,Calculated 86.4 mg/dL (0.0-131.0)
[2020-12-09] MEDS: ARIPiprazole 5 MG TAB PO SCH (09:36)
[2020-12-09] MEDS: LORazepam 1 MG TAB PO PRN (13:29)
--- NOTE | 2020-12-09 13:47 | P.PN ---
Progress Note - Text Progress Note Date: 12/09/20 Interval History: Patient was seen in his room and was directable and agreeable to speak with filing writer. This patient came to Hospital with severe symptoms of psychosis. He is talking to himself, his preoccupied and does not interact with peers.. At this time patient denies any suicidal or homical ideations, intent or plan. Patient denies any side effects from the medications and has been compliant with meds. Mental Status Exam: General Appearance: Patient appears to be stated age. Behavior: He shows a periodic verbal agitation Speech: Patient's speech is non-fluent and pressured. Mood/Affect: Mood is black and affect is flat and he is very preoccupied Suicidality/Homicidality: Patient is a high risk for suicidal behavior Perceptions: Patient appears to be responding to some unknown internal stimuli Though content/process: Patient has auditory hallucinations and thought blocking Memory and concentration: He is not able to concentrate on task Judgment and insight: His insight is poor and judgment is impaired Assessment This patient was admitted to Hospital with symptoms of severe psychosis and continues to show psychotic symptoms Plan: -Patient continues to meet criteria for inpatient psychiatric admission for symptom stabilization and safety. -Medications: Continue medication as before -When necessary Ativan and Haldol for agitation/aggression. -SW on board for discharge planning. Encouraged the patient to participate in milieu.
[2020-12-09] MEDS: NICOTINE 14MG/24HR PATCH TRANSDERM SCH (20:57)
[2020-12-09] MEDS: traZODone HCL 50 MG TAB PO PRN (21:18)
--- NOTE | 2020-12-09 21:58 | XR ---
EXAMINATION TYPE: XR elbow complete LT DATE OF EXAM: 12/09/2020 COMPARISON: NONE HISTORY: Elbow pain TECHNIQUE: 3 views FINDINGS: I see no fracture nor dislocation. Joint spaces are normal. There are no pathologic calcifi cations. IMPRESSION: Negative left elbow exam.
[2020-12-10] MEDS: ARIPiprazole 5 MG TAB PO SCH ×2 (08:46→08:48)
--- NOTE | 2020-12-10 11:49 | P.PN ---
Progress Note - Text Progress Note Date: 12/10/20 Interval History: Patient was seen resting in bed and was directable and agreeable to speak with service writer in the office. The patient expresses that he wants to be discharged today. He was informed that he has been petitioned and certified but refuses to acknowledge the mental health court process and continues to demand for discharge. The patient does endorse significant paranoia, believing that there are those in the community that are following him and that he notices "undercover agents." The patient also expresses some loose associations. When informed that he has been petitioned and certified and that "the ball was rolling" in regards to the mental health court process, the patient abruptly stopped interview and stated "you're not allowed to say that. At his street talk. Street talk is only for non-doctors." He continues to go on this tension for quite some time. The patient is not reporting any auditory or visual hallucinations. He is not reporting any suicidal or homicidal ideation, intention, and/or plan. He has not been in adherent with medications stating that he does not believe he needs to be treated in such a way. The patient is often disorganized when being educated and refuses to participate further in the interview. Mental Status Exam: General Appearance: Patient appears to be stated age is alert, directable, and intermittently cooperative. Patient is dressed in a guided sweatshirt, with fair hygiene and grooming, and his Amarjit average build. Behavior: Patient is calmly seated without any agitated behavior. Eye contact is poor. Psychomotor activity slightly elevated. Speech: Patient's speech is fluent and nonpressured. Tangential. Mood/Affect: Mood is "I don't need to be here." Affect is somewhat irritable and bizarre. Suicidality/Homicidality: Patient denies having any suicidal or homicidal ideation intent or plan. Perceptions: Patient denies any visual hallucinations and denies any auditory hallucinations Though content/process: The patient endorses significant paranoid thought content. Thought process appears to be illogical. Memory and concentration: AOX3, grossly intact for the purposes of this session Judgment and insight: Very poor Assessment Psychosis, unspecified Methamphetamine abuse Cannabis abuse ADHD Plan: -Patient continues to meet criteria for inpatient psychiatric admission for symptom stabilization and safety. The patient has been petitioned and certified. -Medications: Increase Abilify to 10 mg by mouth daily to address psychosis. We will continue to encourage medication adherence. Patient will likely require a court order for medications. -When necessary Ativan and Haldol for agitation/aggression. -NRT - nicotine patch -SW on board for discharge planning. Encouraged the patient to participate in milieu.
[2020-12-10] MEDS: LORazepam 1 MG TAB PO PRN (16:27)
--- NOTE | 2020-12-10 16:28 | XR ---
EXAMINATION TYPE: XR chest 1V DATE OF EXAM: 12/10/2020 CLINICAL HISTORY: Left-sided chest pain. TECHNIQUE: Single AP portable frontal upright view of the chest is obtained. COMPARISON: Chest x-ray April 19, 2020 FINDINGS: There is no suspicious new focal air space opacity, pleural effusion, or pneumothorax seen . The cardiac silhouette size remains within normal limits. The osseous structures are intact. IMPRESSION: No acute process. No significant change from prior.
[2020-12-11] MEDS: NICOTINE 14MG/24HR PATCH TRANSDERM SCH (06:53)
[2020-12-11] MEDS ORDERED: ARIPiprazole 10 MG TAB PO SCH (09:00)
[2020-12-11] MEDS ORDERED: NICOTINE 14MG/24HR PATCH TRANSDERM SCH (09:00)
--- NOTE | 2020-12-11 11:53 | P.PN ---
Progress Note - Text Progress Note Date: 12/11/20 Interval History: Patient was seen resting in bed and was directable and agreeable to speak with typewriter assembler in the office. The patient continues to endorse significant paranoia and loose associations. He stops the interview mid way and confronts this provider stating, "You said the color green, which is mind control in [place]." This provider did not say anything close to the word green. He then relents and states, "please don't hold what I just said against me." He reports no overt auditory or visual hallucinations. He reports no suicidal or homicidal ideation, intention, and/or plan. He expresses no issues with sleep or appetite. Collateral information was obtained by the patient's mother who reports that Kennedy has verbalized homicidal threats towards her and other family members. She expresses that he has had issues with paranoid and bizarre delusions but is stubborn and does not believe there is anything wrong with him. The patient expressed he was upset that he was started on medication but states he will take it. When informed there is a plan to transition him to a long acting injectible, the patient becomes upset and terminates the interview. Mental Status Exam: General Appearance: Patient appears to be stated age is alert, directable, and intermittently cooperative. Patient is dressed in a hooded sweatshirt, with fair hygiene and grooming, and is of average build. Behavior: Patient is calmly seated without any agitated behavior. Eye contact i s poor. Psychomotor activity elevated. Speech: Patient's speech is fluent and nonpressured. Tangential. Mood/Affect: Mood is "I'm upset." Affect is irritable and bizarre. Suicidality/Homicidality: Patient denies having any suicidal or homicidal ideation intent or plan. Perceptions: Patient denies any visual hallucinations and denies any auditory hallucinations Though content/process: The patient endorses significant paranoid and bizarre thought content. Thought process appears to be illogical. Memory and concentration: AOX3, grossly intact for the purposes of this session Judgment and insight: Very poor Assessment Psychosis, unspecified Methamphetamine abuse Cannabis abuse ADHD Plan: -Patient continues to meet criteria for inpatient psychiatric admission for symptom stabilization and safety. The patient has been petitioned and certified. He is scheduled to meet with the compliance attorney tomorrow. -Medications: Increase Abilify to 15 mg by mouth daily to address psychosis. We will continue to encourage medication adherence. Patient will likely require a court order for medications. Will plan to transition to [place]. -When necessary Ativan and Haldol for agitation/aggression. -NRT - nicotine patch -SW on board for discharge planning. Encouraged the patient to participate in milieu.
[2020-12-11] MEDS: LORazepam 1 MG TAB PO PRN (18:37)
[2020-12-11] MEDS: traZODone HCL 50 MG TAB PO PRN (20:52)
[2020-12-12 06:57] VITALS: BP 98/49; PULSE 53; TEMP 97.8
[2020-12-12] MEDS ORDERED: ARIPiprazole 15 MG TAB PO SCH (09:00)
[2020-12-12] MEDS: NICOTINE 7MG/24HR PATCH TRANSDERM SCH (09:58)
--- NOTE | 2020-12-12 11:05 | P.PN ---
Progress Note - Text Progress Note Date: 12/12/20 Interval History: Patient was seen resting in bed and was directable and agreeable to speak with the business writer in his room. The patient is currently not currently suicidal or homicidal ideation or intention, and/or plan. He is not reporting any auditory or visual hallucinations. He is not reporting any paranoia or other delusions.Patient ports that he had difficulty sleeping last night. He otherwise reports no significant issues regarding his medications or his treatment. He is agreeable to taking Abilify. The patient has not attended groups and was encouraged to do so. He states that he'll attempt to attend groups. Mental Status Exam: General Appearance: Patient appears to be stated age is alert, directable, and intermittently cooperative. Patient is dressed in his home clothes,with fair hygiene and grooming, and is of average build. Behavior: Patient is calmly seated without any agitated behavior. Eye contact is poor. Psychomotor activity appears normal. Speech: Patient's speech is fluent and nonpressured. Spontaneous, normal rate, tone, and volume. Mood/Affect: Mood is "Doing fine." Affect is constricted but otherwise euthymic. Suicidality/Homicidality: Patient denies having any suicidal or homicidal ideation intent or plan. Perceptions: Patient denies any visual hallucinations and denies any auditory hallucinations Though content/process: No delusional thought content is endorsing a. Thought process is fairly linear and logical and short conversation. Memory and concentration: AOX3, grossly intact for the purposes of this session Judgment and insight: Mildly improving Vital Signs Temp 97.8 F 12/12/20 06:19 Pulse 53 L 12/12/20 06:19 Resp 16 12/12/20 06:19 BP 98/49 12/12/20 06:19 Pulse Ox 99 12/11/20 18:41 Assessment Psychosis, unspecified Methamphetamine abuse Cannabis abuse ADHD Plan: -Patient continues to meet criteria for inpatient psychiatric admission for symptom stabilization and safety. The patient has been petitioned and certified. He is scheduled to meet with the trade mark attorney Today. -Medications: Increase Abilify to 20 g by mouth daily. We will continue to encourage medication adherence. Patient will likely require a court order for medications . Will plan to transition to [place]. -When necessary Ativan and Haldol for agitation/aggression. -NRT - nicotine patch -SW on board for discharge planning. Encouraged the patient to participate in milieu.
[2020-12-12] MEDS: LORazepam 1 MG TAB PO PRN (20:58)
[2020-12-12] MEDS: traZODone HCL 50 MG TAB PO PRN (20:58)
[2020-12-13] MEDS: NICOTINE 7MG/24HR PATCH TRANSDERM SCH (09:25)
[2020-12-13] MEDS ORDERED: ARIPiprazole IM 400 MG VIAL (NO COST) PHARMACY STOCK IM ONE (09:55)
[2020-12-13] MEDS ORDERED: ARIPiprazole IM SYRINGE 400 MG (NO CHARGE) PHARMACY STOCK IM ONE (10:00)
--- NOTE | 2020-12-13 10:12 | P.PN ---
Progress Note - Text Progress Note Date: 12/13/20 Interval History: Patient was seen resting in bed and was directable and agreeable to speak with the resume writer in the office. The patient is reporting is feeling better today. He is not reporting any suicidal or homicidal ideation, intention,/or plan. He is not reporting any auditory or visual hallucinations. Denies any paranoia or other delusions. The patient deferred at the health court yesterday. When asked about any paranoia, the patient states that he currently does not feel any and that in regards to what he was experiencing in the outpatient setting, in particular people following him or entering cars near him, the patient states that he feels like it is not bothersome that he can "pressured off." He is not reporting any issues with sleep or appetite. He has been adherent with his medications and is not reporting any significant side effects. He is agreeable to taking Abilify maintain a today. Mental Status Exam: General Appearance: Patient appears to be stated age is alert, directable, and intermittently cooperative. Patient is dressed in his home clothes,with fair hygiene and grooming, and is of average build. Behavior: Patient is calmly seated without any agitated behavior. Eye contact is poor. Psychomotor activity appears normal. Speech: Patient's speech is fluent and nonpressured. Spontaneous, normal rate, tone, and volume. Mood/Affect: Mood is "Feeling better." Affect is Euthymic with appropriate range. Suicidality/Homicidality: Patient denies having any suicidal or homicidal ideation intent or plan. Perceptions: Patient denies any visual hallucinations and denies any auditory hallucinations Though content/process: The patient is currently not reporting any delusional thought content. Thought process is to be linear and logical. Memory and concentration: AOX3, grossly intact for the purposes of this session Judgment and insight: Mildly improving Vital Signs Temp 97.8 F 12/12/20 06:19 Pulse 53 L 12/12/20 06:19 Resp 16 12/12/20 06:19 BP 98/49 12/12/20 06:19 Pulse Ox 99 12/11/20 18:41 Assessment Psychosis, unspecified Methamphetamine abuse Cannabis abuse ADHD Plan: -Patient continues to meet criteria for inpatient psychiatric admission for symp jerel stabilization and safety. The patient has been petitioned and certified. Patient deferred mental health court. -Medications: Continue Abilify 20 mg by mouth daily for psychosis/mood stabilization Start Abilify maintena 400 mg IM [id number] to be administered today. -When necessary Ativan and Haldol for agitation/aggression. -NRT - nicotine patch -SW on board for discharge planning. Encouraged the patient to participate in milieu.
[2020-12-13] MEDS: ACETAMINOPHEN TAB 325 MG TAB PO PRN (17:44)
[2020-12-13] MEDS: traZODone HCL 50 MG TAB PO PRN (20:06)
[2020-12-13] MEDS: LORazepam 1 MG TAB PO PRN (22:07)
[2020-12-14] MEDS: ACETAMINOPHEN TAB 325 MG TAB PO PRN (03:56)
[2020-12-14] MEDS: NICOTINE 7MG/24HR PATCH TRANSDERM SCH (09:32)
--- NOTE | 2020-12-18 15:03 | DS ---
DISCHARGE SUMMARY DATE OF SERVICE: 12/14/2020. DATE OF ADMISSION: 12/07/2020. DATE OF DISCHARGE: 12/14/2020 ADMISSION AND DISCHARGE DIAGNOSES: 1. Psychotic disorder, not otherwise specified. ADHD. Cannabis abuse. 2. Rule out cannabis induced psychosis. HISTORY OF PRESENTING ILLNESS: The patient is a 20-year-old male. He was having delusional thoughts that started just in the last week. He acknowledged drinking beer and smoking marijuana. He stated that he did not have these kind of issues in the past. He has not had a prior psychiatric hospitalization. No further information is documented in the admission note of Dr. Ev Stanley. The patient was admitted for further evaluation. MENTAL STATUS EXAM: The patient appeared to be "in a daze." Communication was adequate. Mood was described as "blank and affect is flat." He appeared to be delusional. He was oriented and alert. Impulse control was poor. Cognition intact. COURSE OF HOSPITALIZATION: Patient was admitted for comprehensive medical psychiatric and psychosocial evaluation. He was engaged in individual and group therapeutic activities. Patient was admitted on [facility] for involuntary hospitalization. He deferred and agreed to treatment. He was started on Abilify, which was titrated to 20 mg a day. The patient showed progressive improvement. As his hospitalization progressed, he would come out in the day area. He interacted appropriately with others. He was reporting no further issues with unusual or delusional thoughts. He was sleeping well at night. He was cooperative with care. On the day prior to discharge, he was started on Abilify Maintena 400 mg IM. He was able to engage in discharge planning. CONDITION AT DISCHARGE: Patient was stable. His mood was improved. He was not exhibiting any further delusional thinking. He tolerated his psychotropic medications. RECOMMENDATIONS AND FOLLOWUP: The patient was discharged on Abilify 20 mg in a day. In addition he received Abilify Maintena 400 mg on 12/13/2020 with anticipation of monthly injections. He was also on trazodone 50 mg at bedtime p.r.n. He has followup with [facility] on 12/17/2020 at 9:30 am and was referred to [facility] for general health care. MMODL / IJN: [id number] /
== END 2020-12-14 13:45 | disposition home or self-care (01) | DRG 885 ==
LOC: EC 11:15 → 3MHU 16:50
PROVIDERS: ADMIT Psychiatry & Neurology Psychiatry; ATTEND Psychiatry & Neurology Psychiatry
DX: F23 Brief psychotic disorder (principal); R45.851 Suicidal ideations; F12.10 Cannabis abuse, uncomplicated; F15.10 Other stimulant abuse, uncomplicated; F17.200 Nicotine dependence, unspecified, uncomplicated; F90.9 Attention-deficit hyperactivity disorder, unspecified type; R45.850 Homicidal ideations; Z79.899 Other long term (current) drug therapy; Z20.822 Contact with and (suspected) exposure to COVID-19
CPT/HCPCS: 71045; 80053; 80061; 80306; 82075; 83036; 84443; 84484; 85025; 87635; 93005; 99285

== ENCOUNTER 2021-01-01 16:12 | Emergency (ER) | payer OTHER ==
[2021-01-01 16:19] VITALS: RESP 18
[2021-01-01 17:17] LABS: ALT 56 U/L (4-49); AST 38 U/L (17-59); African American GFR (CKD) >90 (>60 ml/min/1.73 sqM); Albumin 4.7 g/dL (3.5-5.0); Alkaline Phosphatase 90 U/L (38-126); Anion Gap 9 mmol/L; Blood Urea Nitrogen 11 mg/dL (9-20); Calcium 9.8 mg/dL (8.4-10.2); Carbon Dioxide 27 mmol/L (22-30); Chloride 105 mmol/L (98-107); Glucose 107 mg/dL (74-99); Non-African American GFR(CKD) >90 (>60 ml/min/1.73 sqM); Potassium 4.2 mmol/L (3.5-5.1); Sodium 141 mmol/L (137-145); Total Bilirubin 0.4 mg/dL (0.2-1.3); Total Protein 7.4 g/dL (6.3-8.2)
[2021-01-01 17:34] LABS: Basophils # (A) 0.1 k/uL (0-0.2); Basophils % (A) 1 %; Eosinophils # (A) 0.1 k/uL (0-0.7); Eosinophils % (A) 1 %; HCT 47.8 % (39.0-53.0); HGB 17.2 gm/dL (13.0-17.5); Lymphocytes # (A) 1.6 k/uL (1.0-4.8); Lymphocytes % (A) 18 %; MCH 30.2 pg (25.0-35.0); Mean Platelet Volume 6.5; Monocytes # (A) 0.4 k/uL (0-1.0); Monocytes % (A) 5 %; Neutrophils # (A) 6.6 k/uL (1.3-7.7); Neutrophils % (A) 75 %; Platelet Count 333 k/uL (150-450); RBC 5.69 m/uL (4.30-5.90); RDW 12.2 % (11.5-15.5); WBC 8.9 k/uL (3.8-10.6)
--- NOTE | 2021-01-01 17:47 | CT ---
Exam: CT MAXILLOFACIAL WITHOUT CONTRAST Clinical Indication: Left inferior and jaw pain without known injury. Comparison: None. Technique: A CT of the facial bones was performed utilizing axial acquisition without the administra tion of intravenous contrast. Sagittal and coronal reformations were obtained. Iterative dose modulat ion technique was performed. Findings: There is no acute fracture or dislocation. The pterygoid plates, zygomatic arches, maxilla and mandib le are intact. The bilateral orbits are intact. The paranasal sinuses and mastoid air cells are adequ ately aerated. There is no significant soft tissue abnormality. Impression: Grossly unremarkable CT maxillofacial.
--- NOTE | 2021-01-01 17:52 | ED ---
ENT HPI - General Chief complaint: ENT Stated complaint: Lt Ear/Jaw Pain Time Seen by Provider: 01/01/21 16:26 Source: patient, RN notes reviewed Mode of arrival: ambulatory Limitations: no limitations - History of Present Illness Initial comments: 20-year-old male complaining of left ear pain for approximately one week. He notes that he's been try to do with her at home with no relief. He has not been to his primary care any other doctor. He notes that the pain is inferior and anterior to his ear with motivated tenderness behind his ear. Patient was a well-appearing well-hydrated 20-year-old male in no apparent distress or pain while sitting up during the exam interview. He denied any loss of hearing dizziness tinnitus chest pain shortness of breath headache nausea vomiting diarrhea constipation fever fatigue chills - Related Data Previous Rx's Medication Instructions Recorded ARIPiprazole [Abilify] 20 mg PO DAILY #30 tab 12/14/20 Nicotine 7Mg/24Hr Patch [Habitrol] 1 patch TRANSDERM DAILY patch 12/14/20 traZODone HCL [Desyrel] 50 mg PO HS PRN #30 tab 12/14/20 Amoxicillin 875 mg PO Q12HR #20 tablet 01/01/21 Allergies Allergy/AdvReac Type Severity Reaction Status Date / Time venom-honey bee Allergy Anaphylaxis Verified 01/01/21 16:21 [bee venom (honey bee)] Review of Systems ROS Statement: Those systems with pertinent positive or pertinent negative responses have been documented in the HPI. ROS Other: All systems not noted in ROS Statement are negative. Past Medical History Past Medical History: No Reported History Additional Past Medical History / Comment(s): ADHD History of Any Multi-Drug Resistant Organisms: None Reported Past Surgical History: Ear Surgery, Orthopedic Surgery Additional Past Surgical History / Comment(s): 2 R meniscus repairs tubes in ears as child. Past Psychological History: ADD/ADHD Smoking Status: Current every day smoker Past Alcohol Use History: Rare Past Drug Use History: Marijuana General Exam Limitations: no limitations General appearance: alert, in no apparent distress Head exam: Present: atraumatic, normocephalic, normal inspection Eye exam: Present: normal appearance, PERRL, EOMI. Absent: scleral icterus, conjunctival injection, periorbital swelling ENT exam: Present: normal exam, mucous membranes moist, TM's normal bilaterally, normal external ear exam Neck exam: Present: normal inspection, full ROM. Absent: lymphadenopathy Respiratory exam: Present: normal lung sounds bilaterally. Absent: respiratory distress, wheezes, rales, rhonchi, stridor Cardiovascular Exam: Present: regular rate, normal rhythm, normal heart sounds. Absent: systolic murmur, diastolic murmur, rubs, gallop, clicks GI/Abdominal exam: Present: soft, normal bowel sounds. Absent: distended, tenderness, guarding, rebound, rigid Extremities exam: Present: normal inspection, full ROM, normal capillary refill. Absent: tenderness, pedal edema, joint swelling, calf tenderness Neurological exam: Present: alert, oriented X3 Psychiatric exam: Present: normal affect, normal mood Skin exam: Present: warm, dry, intact, normal color. Absent: rash Course Vital Signs 01/01/21 16:17 Temperature 98.1 F Pulse Rate 76 Respiratory 18 Rate Blood Pressure 138/88 O2 Sat by Pulse 97 Oximetry Medical Decision Making - Medical Decision Making 20-year-old male complaining of left ear pain for the last week. Labs, CT of the facial bones without contrastordered. Labs unremarkable. CT negative for any acute process. Patient most likely has a in her ear infection, will prescribe antibiotics. Case discussed with Dr. Velazquez, patient can discharge home in stable condition with follow-up to primary care and ENT as needed. - Lab Data Result diagrams: 01/01/21 17:00 01/01/21 17:00 Lab Results 01/01/21 01/01/21 Range/Units 17:00 17:00 WBC 8.9 (3.8-10.6) k/uL RBC 5.69 (4.30-5.90) m/uL Hgb 17.2 (13.0-17.5) gm/dL Hct 47.8 (39.0-53.0) % MCV 84.0 (80.0-100.0) fL MCH 30.2 (25.0-35.0) pg MCHC 36.0 (31.0-37.0) g/dL RDW 12.2 (11.5-15.5) % Plt Count 333 (150-450) k/uL MPV 6.5 Neutrophils % 75 % Lymphocytes % 18 % Monocytes % 5 % Eosinophils % 1 % Basophils % 1 % Neutrophils # 6.6 (1.3-7.7) k/uL Lymphocytes # 1.6 (1.0-4.8) k/uL Monocytes # 0.4 (0-1.0) k/uL Eosinophils # 0.1 (0-0.7) k/uL Basophils # 0.1 (0-0.2) k/uL Sodium 141 (137-145) mmol/L Potassium 4.2 (3.5-5.1) mmol/L Chloride 105 (98-107) mmol/L Carbon Dioxide 27 (22-30) mmol/L Anion Gap 9 mmol/L BUN 11 (9-20) mg/dL Creatinine 0.73 (0.66-1.25) mg/dL Est GFR (CKD-EPI)AfAm >90 (>60 ml/min/1.73 sqM) Est GFR (CKD-EPI)NonAf >90 (>60 ml/min/1.73 sqM) Glucose 107 H (74-99) mg/dL Calcium 9.8 (8.4-10.2) mg/dL Total Bilirubin 0.4 (0.2-1.3) mg/dL AST 38 (17-59) U/L ALT 56 H (4-49) U/L Alkaline Phosphatase 90 (38-126) U/L Total Protein 7.4 (6.3-8.2) g/dL Albumin 4.7 (3.5-5.0) g/dL Disposition Clinical Impression: Otitis media, Ear pain Disposition: HOME SELF-CARE Condition: Stable Instructions (If sedation given, give patient instructions): Earache (ED) Additional Instructions: Please return to the Emergency Department if symptoms worsen or any other concerns. Follow-up with primary care in ENT as needed. Take Motrin as needed for pain. Take antibiotics as prescribed until complete. Is patient prescribed a controlled substance at d/c from ED?: No Referrals: None,Stated [Primary Care Provider] - 1-2 days Time of Disposition: 17:51
[2021-01-01 18:06] VITALS: BP 139/93; PULSE 88; TEMP 97.9
== END 2021-01-01 18:06 | disposition home or self-care (01) ==
LOC: EC 16:12
DX: H66.92 Otitis media, unspecified, left ear (principal); F90.9 Attention-deficit hyperactivity disorder, unspecified type; F17.200 Nicotine dependence, unspecified, uncomplicated; F12.90 Cannabis use, unspecified, uncomplicated; Z79.899 Other long term (current) drug therapy
CPT/HCPCS: 36415; 70486; 80053; 85025; 99283

== ENCOUNTER 2021-09-08 22:49 | Emergency (ER) | payer OTHER ==
[2021-09-08 22:56] VITALS: TEMP 97.1
--- NOTE | 2021-09-08 23:13 | ED ---
General Adult HPI - General Chief complaint: Chest Pain Stated complaint: chest pain, hip pain Time Seen by Provider: 09/08/21 23:00 Source: patient, RN notes reviewed Mode of arrival: ambulatory Limitations: no limitations - History of Present Illness Initial comments: 20-year-old male presents to the emergency Department with complaints of epigastric and left-sided chest pain. Patient states the pain began this evening while he was at rest. Reports experiencing a episode similar last week. Denies any aggravating or alleviating factors. States he took an aspirin last week to try to treat the pain, but states that made his symptoms worse. Denies fever, chills, headache, shortness of breath, difficulty breathing, nausea, vomiting, diarrhea, or dysuria. - Related Data Previous Rx's Medication Instructions Recorded ARIPiprazole [Abilify] 20 mg PO DAILY #30 tab 12/14/20 Nicotine 7Mg/24Hr Patch [Habitrol] 1 patch TRANSDERM DAILY patch 12/14/20 traZODone HCL [Desyrel] 50 mg PO HS PRN #30 tab 12/14/20 Amoxicillin 875 mg PO Q12HR #20 tablet 01/01/21 Famotidine [Pepcid] 20 mg PO BID #28 tablet 09/09/21 Allergies Allergy/AdvReac Type Severity Reaction Status Date / Time venom-honey bee Allergy Anaphylaxis Verified 09/08/21 22:56 [bee venom (honey bee)] Review of Systems ROS Statement: Those systems with pertinent positive or pertinent negative responses have been documented in the HPI. ROS Other: All systems not noted in ROS Statement are negative. Past Medical History Past Medical History: No Reported History Additional Past Medical History / Comment(s): ADHD History of Any Multi-Drug Resistant Organisms: None Reported Past Surgical History: Ear Surgery, Orthopedic Surgery Additional Past Surgical History / Comment(s): 2 R meniscus repairs tubes in ears as child. Past Psychological History: ADD/ADHD Smoking Status: Current every day smoker Past Alcohol Use History: Rare Past Drug Use History: Marijuana General Exam Limitations: no limitations (Well-developed, well-nourished female in no acute distress. Initial temperature 97.1, pulse 76, respirations 18, blood pressure 113/64, pulse ox 98% on room air.) General appearance: alert, in no apparent distress ENT exam: Present: normal oropharynx Respiratory exam: Present: normal lung sounds bilaterally, chest wall tenderness (Left anterior chest wall tenderness upon palpation.), other (Complains of pain is worsened with inspiration). Absent: respiratory distress, wheezes, rales, rhonchi, stridor Cardiovascular Exam: Present: regular rate, normal rhythm, normal heart sounds. Absent: systolic murmur, diastolic murmur, rubs, gallop, clicks GI/Abdominal exam: Present: soft, tenderness (Tenderness upon palpation of the epigastric region), normal bowel sounds. Absent: distended, guarding, rebound, rigid Back exam: Present: normal inspection. Absent: CVA tenderness (R), CVA tenderness (L) Neurological exam: Present: alert, oriented X3, CN II-XII intact Psychiatric exam: Present: normal affect, normal mood Skin exam: Present: warm, dry, intact, normal color. Absent: rash Course Vital Signs 09/08/21 09/08/21 09/09/21 22:53 23:44 01:21 Temperature 97.1 F L Pulse Rate 76 58 L 82 Respiratory 18 18 14 Rate Blood Pressure 113/64 110/70 101/60 O2 Sat by Pulse 98 96 99 Oximetry 09/09/21 02:10 Temperature Pulse Rate 54 L Respiratory 18 Rate Blood Pressure 95/55 O2 Sat by Pulse 96 Oximetry - Reevaluation(s) Reevaluation #1: 09/09/21 00:39 Upon reassessment, patient is noted to the asleep it appears to be resting comfortably. His arm with a blood pressure cuff is positioned above his head therefore expect alterations in blood pressure measurement. Troponin pending. Patient will be reassessed. 09/09/21 01:39 Patient is asleep, however is easily awakened and reports feeling significant improvement. Laboratory studies were unremarkable therefore patient will be discharged home to follow up with his PCP. Medical Decision Making - Medical Decision Making 20-year-old male with a past medical history of ADHD presents to the emergency department for evaluation of epigastric and chest pain. Upon exam, patient is nontoxic, well-appearing, and in no acute distress. Vital signs are stable, patient is afebrile. Left-sided chest pain is reproducible with palpation of the anterior chest wall. No concerns for ACS. He also has epigastric tenderness upon palpation. Describes occasions in which oral intake worsens discomfort. EKG was obtained and shows normal sinus rhythm. Laboratory studies were reviewed and were unremarkable with the exception of slight hypokalemia which was supplemented orally. Chest x-ray was negative. Patient was also given a GI cocktail with improvement. He will be given a course of Pepcid as this discomfort is likely related to acid reflux. He will be discharged home to follow up with his PCP. Strict return parameters were discussed in detail. Patient verbalizes understanding and agrees with this plan. This patient's care was discussed with my attending Dr. Castaneda. - Lab Data Result diagrams: 09/08/21 23:44 09/08/21 23:44 Lab Results 09/08/21 09/08/21 09/08/21 Range/Units 23:44 23:44 23:44 WBC 8.3 (3.8-10.6) k/uL RBC 5.24 (4.30-5.90) m/uL Hgb 15.9 (13.0-17.5) gm/dL Hct 45.8 (39.0-53.0) % MCV 87.4 (80.0-100.0) fL MCH 30.3 (25.0-35.0) pg MCHC 34.7 (31.0-37.0) g/dL RDW 11.9 (11.5-15.5) % Plt Count 258 (150-450) k/uL MPV 6.9 Neutrophils % 59 % Lymphocytes % 31 % Monocytes % 4 % Eosinophils % 3 % Basophils % 1 % Neutrophils # 4.9 (1.3-7.7) k/uL Lymphocytes # 2.5 (1.0-4.8) k/uL Monocytes # 0.4 (0-1.0) k/uL Eosinophils # 0.3 (0-0.7) k/uL Basophils # 0.1 (0-0.2) k/uL PT 10.7 (9.0-12.0) sec INR 1.0 (<1.2) APTT 26.1 (22.0-30.0) sec Sodium 140 (137-145) mmol/L Potassium 3.4 L (3.5-5.1) mmol/L Chloride 104 (98-107) mmol/L Carbon Dioxide 25 (22-30) mmol/L Anion Gap 11 mmol/L BUN 15 (9-20) mg/dL Creatinine 0.89 (0.66-1.25) mg/dL Est GFR (CKD-EPI)AfAm >90 (>60 ml/min/1.73 sqM) Est GFR (CKD-EPI)NonAf >90 (>60 ml/min/1.73 sqM) Glucose 85 (74-99) mg/dL Calcium 9.6 (8.4-10.2) mg/dL Magnesium 2.2 (1.6-2.3) mg/dL Total Bilirubin 1.2 (0.2-1.3) mg/dL AST 23 (17-59) U/L ALT 21 (4-49) U/L Alkaline Phosphatase 73 (38-126) U/L Troponin I (0.000-0.034) ng/mL Total Protein 7.7 (6.3-8.2) g/dL Albumin 4.6 (3.5-5.0) g/dL 09/08/21 Range/Units 23:44 WBC (3.8-10.6) k/uL RBC (4.30-5.90) m/uL Hgb (13.0-17.5) gm/dL Hct (39.0-53.0) % MCV (80.0-100.0) fL MCH (25.0-35.0) pg MCHC (31.0-37.0) g/dL RDW (11.5-15.5) % Plt Count (150-450) k/uL MPV Neutrophils % % Lymphocytes % % Monocytes % % Eosinophils % % Basophils % % Neutrophils # (1.3-7.7) k/uL Lymphocytes # (1.0-4.8) k/uL Monocytes # (0-1.0) k/uL Eosinophils # (0-0.7) k/uL Basophils # (0-0.2) k/uL PT (9.0-12.0) sec INR (<1.2) APTT (22.0-30.0) sec Sodium (137-145) mmol/L Potassium (3.5-5.1) mmol/L Chloride (98-107) mmol/L Carbon Dioxide (22-30) mmol/L Anion Gap mmol/L BUN (9-20) mg/dL Creatinine (0.66-1.25) mg/dL Est GFR (CKD-EPI)AfAm (>60 ml/min/1.73 sqM) Est GFR (CKD-EPI)NonAf (>60 ml/min/1.73 sqM) Glucose (74-99) mg/dL Calcium (8.4-10.2) mg/dL Magnesium (1.6-2.3) mg/dL Total Bilirubin (0.2-1.3) mg/dL AST (17-59) U/L ALT (4-49) U/L Alkaline Phosphatase (38-126) U/L Troponin I <0.012 (0.000-0.034) ng/mL Total Protein (6.3-8.2) g/dL Albumin (3.5-5.0) g/dL - EKG Data EKG shows normal: sinus rhythm Rate: normal EKG Comments: EKG was obtained at 2316 showing sinus rhythm with marked sinus arrhythmia. Ventricular rate 65, OR interval 139, QRS duration 112, QT/QTc 429/441. Interpretation: Borderline ECG. - Radiology Data Radiology results: report reviewed, image reviewed Two-view chest x-ray was obtained. Report was reviewed in its entirety. Impression per Dr. Farris as normal chest. No change. Disposition Clinical Impression: Non-cardiac chest pain, Heartburn symptom Disposition: HOME SELF-CARE Condition: Stable Instructions (If sedation given, give patient instructions): GERD (Gastroesophageal Reflux Disease) (ED), Noncardiac Chest Pain (ED) Additional Instructions: Take Pepcid as prescribed. Minimize intake of spicy, greasy, or irritating foods. May take Tylenol for chest wall discomfort. Follow up with your PCP for a recheck. Return to the emergency department with a new, worsening, or concerning sym ptoms. Prescriptions: Famotidine [Pepcid] 20 mg PO BID #28 tablet Is patient prescribed a controlled substance at d/c from ED?: No Referrals: None,Stated [Primary Care Provider] - 1-2 days Time of Disposition: 02:04
--- NOTE | 2021-09-09 00:07 | XR ---
EXAMINATION TYPE: XR chest 2V DATE OF EXAM: 09/08/2021 COMPARISON: NONE HISTORY: Chest pain TECHNIQUE: 2 views FINDINGS: Heart and mediastinum are normal. Lungs are clear. Diaphragm is normal. Bony thorax appears normal. IMPRESSION: Normal chest. No change.
[2021-09-09 00:12] LABS: Basophils # (A) 0.1 k/uL (0-0.2); Basophils % (A) 1 %; Eosinophils # (A) 0.3 k/uL (0-0.7); Eosinophils % (A) 3 %; HCT 45.8 % (39.0-53.0); HGB 15.9 gm/dL (13.0-17.5); Lymphocytes # (A) 2.5 k/uL (1.0-4.8); Lymphocytes % (A) 31 %; MCH 30.3 pg (25.0-35.0); MCHC 34.7 g/dL (31.0-37.0); MCV 87.4 fL (80.0-100.0); Mean Platelet Volume 6.9; Monocytes # (A) 0.4 k/uL (0-1.0); Monocytes % (A) 4 %; Neutrophils # (A) 4.9 k/uL (1.3-7.7); Neutrophils % (A) 59 %; Platelet Count 258 k/uL (150-450); RBC 5.24 m/uL (4.30-5.90); RDW 11.9 % (11.5-15.5); WBC 8.3 k/uL (3.8-10.6)
[2021-09-09 00:21] LABS: Partial Thromboplastin Time 26.1 sec (22.0-30.0); Prothrombin Time 10.7 sec (9.0-12.0)
[2021-09-09 00:28] LABS: ALT 21 U/L (4-49); AST 23 U/L (17-59); African American GFR (CKD) >90 (>60 ml/min/1.73 sqM); Albumin 4.6 g/dL (3.5-5.0); Alkaline Phosphatase 73 U/L (38-126); Anion Gap 11 mmol/L; Blood Urea Nitrogen 15 mg/dL (9-20); Calcium 9.6 mg/dL (8.4-10.2); Carbon Dioxide 25 mmol/L (22-30); Chloride 104 mmol/L (98-107); Glucose 85 mg/dL (74-99); Magnesium 2.2 mg/dL (1.6-2.3); Non-African American GFR(CKD) >90 (>60 ml/min/1.73 sqM); Potassium 3.4 mmol/L (3.5-5.1); Sodium 140 mmol/L (137-145); Total Bilirubin 1.2 mg/dL (0.2-1.3); Total Protein 7.7 g/dL (6.3-8.2)
[2021-09-09] MEDS ORDERED: MAG HYDROX/AL HYDROX/SIMETH 30 ML, HYOSCYAMINE ELIXIR 10 ML, LIDOCAINE VISCOUS 2% 10 ML PO STA ×3 (00:38)
[2021-09-09] MEDS ORDERED: POTASSIUM CHLORIDE ER 20 MEQ TAB.ER PO STA (00:41)
[2021-09-09 02:11] VITALS: BP 95/55; PULSE 54; RESP 18
== END 2021-09-09 02:21 | disposition home or self-care (01) ==
LOC: EC 22:49
DX: R07.89 Other chest pain (principal); R12 Heartburn; F90.9 Attention-deficit hyperactivity disorder, unspecified type; F17.200 Nicotine dependence, unspecified, uncomplicated; F12.90 Cannabis use, unspecified, uncomplicated; Z79.899 Other long term (current) drug therapy
CPT/HCPCS: 36415; 71046; 80053; 83735; 84484; 85025; 85610; 85730; 93005; 99285

== ENCOUNTER 2021-10-19 00:36 | Emergency (ER) | payer OTHER ==
[2021-10-19 00:41] VITALS: BP 115/75; PULSE 91; RESP 18; TEMP 97.7
[2021-10-19] MEDS ORDERED: IBUPROFEN 600 MG TAB PO STA (00:55)
--- NOTE | 2021-10-19 01:00 | ED ---
General Adult HPI - General Chief complaint: Extremity Injury, Lower Stated complaint: Ankle Pain Time Seen by Provider: 10/19/21 00:56 Source: patient, RN notes reviewed, old records reviewed Mode of arrival: ambulatory Limitations: no limitations - History of Present Illness Initial comments: Well-appearing 20-year-old male presents with left ankle pain and swelling for 2 weeks. Patient states that pain initially occurred when he was walking. He denies any injury, did not roll his ankle and denies any trauma. -: week(s) (2) Location: left, lower extremity (ankle) Radiation: non-radiation Severity scale (1-10): 8 Quality: constant Improves with: none Worsens with: movement (walking) Associated Symptoms: denies other symptoms Treatments Prior to Arrival: none - Related Data Previous Rx's Medication Instructions Recorded ARIPiprazole [Abilify] 20 mg PO DAILY #30 tab 12/14/20 Nicotine 7Mg/24Hr Patch [Habitrol] 1 patch TRANSDERM DAILY patch 12/14/20 traZODone HCL [Desyrel] 50 mg PO HS PRN #30 tab 12/14/20 Amoxicillin 875 mg PO Q12HR #20 tablet 01/01/21 Famotidine [Pepcid] 20 mg PO BID #28 tablet 09/09/21 Allergies Allergy/AdvReac Type Severity Reaction Status Date / Time venom-honey bee Allergy Anaphylaxis Verified 09/08/21 22:56 [bee venom (honey bee)] Review of Systems ROS Statement: Those systems with pertinent positive or pertinent negative responses have been documented in the HPI. ROS Other: All systems not noted in ROS Statement are negative. Past Medical History Past Medical History: No Reported History Additional Past Medical History / Comment(s): ADHD History of Any Multi-Drug Resistant Organisms: None Reported Past Surgical History: Ear Surgery, Orthopedic Surgery Additional Past Surgical History / Comment(s): 2 R meniscus repairs tubes in ears as child. Past Psychological History: ADD/ADHD Smoking Status: Former smoker Past Alcohol Use History: Rare Past Drug Use History: None Reported General Exam Limitations: no limitations General appearance: alert, in no apparent distress Respiratory exam: Present: normal lung sounds bilaterally. Absent: respiratory distress, wheezes, rhonchi, stridor, accessory muscle use, decreased breath sounds Cardiovascular Exam: Present: regular rate Left Lower Leg exam: Absent: tenderness, swelling, ecchymosis, erythema, palpable cord, Homans' sign Ankle exam: Present: normal inspection, tenderness (Achilles tendon is intact with Simpson test). Absent: swelling, ecchymosis, deformity, crepitus, dislocation, erythema Foot/Toe exam: Absent: tenderness, swelling, ecchymosis, deformity, erythema, calcaneal tenderness Neurovascular tendon exam: Present: no vascular compromise. Absent: pulse deficit, abnormal cap refill, extremity cold to touch, pallor, foot drop, significant pain with passive ROM of distal joint Neurological exam: Present: alert, oriented X3 Psychiatric exam: Present: normal affect, normal mood Skin exam: Present: warm, dry, normal color. Absent: cyanosis, diaphoretic, petechiae, pallor Course Vital Signs 10/19/21 00:38 Temperature 97.7 F Pulse Rate 91 Respiratory 18 Rate Blood Pressure 115/75 O2 Sat by Pulse 97 Oximetry Medical Decision Making - Medical Decision Making Patient presents with 2 weeks of left ankle pain. Denies any injury. States is worse with walking. X-ray shows no fracture or dislocation. Pedal pulses are present. He is neurovascularly intact. Negative Simpson test. This is likely an ankle sprain. He was given Motrin in the emergency room. Ankle stirrup applied and directed to follow up with orthopedics. Disposition Clinical Impression: Ankle pain, left Disposition: HOME SELF-CARE Condition: Good Instructions (If sedation given, give patient instructions): Ankle Sprain (ED) Additional Instructions: Rest, ice, elevate and use Motrin as needed for pain. Follow-up with orthopedics next week for reevaluation. Is patient prescribed a controlled substance at d/c from ED?: No Referrals: None,Stated [Primary Care Provider] - 1-2 days Mike Boyle DO [Doctor of Osteopathic Medicine] - 1-2 days Time of Disposition: 01:28
--- NOTE | 2021-10-19 01:23 | XR ---
EXAMINATION TYPE: XR ankle complete LT DATE OF EXAM: 10/19/2021 COMPARISON: NONE HISTORY: Ankle pain TECHNIQUE: 3 views FINDINGS: There is no fracture nor dislocation. Ankle mortise is anatomic. Joint spaces are normal. IMPRESSION: Negative left ankle exam.
== END 2021-10-19 01:41 | disposition home or self-care (01) ==
LOC: EC 00:36
DX: M25.572 Pain in left ankle and joints of left foot (principal); Z87.891 Personal history of nicotine dependence; Z91.030 Bee allergy status; X58.XXXA Exposure to other specified factors, initial encounter; Y93.01 Activity, walking, marching and hiking
CPT/HCPCS: 29515; 99283

== ENCOUNTER 2022-01-11 15:13 | Emergency (ER) | payer OTHER ==
[2022-01-11 15:18] VITALS: BP 126/75; PULSE 89; RESP 18; TEMP 98.8
[2022-01-11] MEDS ORDERED: KETOROLAC 15 MG/ML 1 ML VIAL IVP STA (16:23)
[2022-01-11] MEDS ORDERED: diphenhydrAMINE 50 MG/ML 1 ML VIAL IVP STA (16:23)
[2022-01-11] MEDS ORDERED: SODIUM CHLORIDE 0.9% 1,000 ML IV STA (16:23)
[2022-01-11] MEDS ORDERED: ONDANSETRON 4 MG/2 ML VIAL IVP STA (16:23)
[2022-01-11] MEDS ORDERED: PANTOPRAZOLE 40 MG/10 ML VIAL IVP STA (16:23)
--- NOTE | 2022-01-11 17:11 | XR ---
EXAMINATION TYPE: XR chest 1V DATE OF EXAM: 01/11/2022 COMPARISON: 09/09/2021 HISTORY: Nausea and vomiting TECHNIQUE: Single view FINDINGS: Heart and mediastinum are normal. Lungs are clear. Diaphragm is normal. Bony thorax is inta ct. IMPRESSION: Normal chest. No change.
[2022-01-11 17:30] LABS: Basophils # (A) 0.1 k/uL (0-0.2); Basophils % (A) 1 %; Eosinophils # (A) 0.2 k/uL (0-0.7); Eosinophils % (A) 3 %; HCT 48.1 % (39.0-53.0); Lymphocytes # (A) 2.2 k/uL (1.0-4.8); Lymphocytes % (A) 29 %; MCHC 35.4 g/dL (31.0-37.0); MCV 84.9 fL (80.0-100.0); Mean Platelet Volume 6.9; Monocytes # (A) 0.4 k/uL (0-1.0); Monocytes % (A) 5 %; Neutrophils # (A) 4.6 k/uL (1.3-7.7); Neutrophils % (A) 61 %; Platelet Count 290 k/uL (150-450); RBC 5.67 m/uL (4.30-5.90); RDW 12.3 % (11.5-15.5); WBC 7.5 k/uL (3.8-10.6)
[2022-01-11 17:43] LABS: ALT 37 U/L (4-49); AST 34 U/L (17-59); African American GFR (CKD) >90 (>60 ml/min/1.73 sqM); Albumin 4.9 g/dL (3.5-5.0); Alkaline Phosphatase 81 U/L (38-126); Amylase 79 U/L (30-110); Anion Gap 10 mmol/L; Blood Urea Nitrogen 13 mg/dL (9-20); Calcium 9.4 mg/dL (8.4-10.2); Carbon Dioxide 24 mmol/L (22-30); Chloride 105 mmol/L (98-107); Glucose 88 mg/dL (74-99); Lipase 74 U/L (23-300); Non-African American GFR(CKD) >90 (>60 ml/min/1.73 sqM); Potassium 4.1 mmol/L (3.5-5.1); Sodium 139 mmol/L (137-145); Total Bilirubin 1.3 mg/dL (0.2-1.3); Total Protein 7.9 g/dL (6.3-8.2)
--- NOTE | 2022-01-11 18:53 | ED ---
General Adult HPI - General Chief complaint: ENT Stated complaint: Vomiting, Sore Throat Time Seen by Provider: 01/11/22 15:48 Source: patient, RN notes reviewed, old records reviewed Mode of arrival: ambulatory Limitations: no limitations - History of Present Illness Initial comments: Activation is a 21-year-old male who presents emergency Department complaining of nausea, vomiting, sore throat for 1-2 days. No known sick contacts. States he has tolerated oral intake. Was concerned about some form of infection. Denies abdominal pain, nausea, vomiting currently. Denies chest pain or shortness breath. States he had multiple episodes nonbilious. Of emesis. Denies diarrhea. Denies urinary complaints. No other acute complaints at this time. Was vaccinated for COVID-19. Denies drug use, alcohol use. - Related Data Home Medications Medication Instructions Recorded Confirmed No Known Home Medications 01/11/22 01/11/22 Allergies Allergy/AdvReac Type Severity Reaction Status Date / Time venom-honey bee Allergy Anaphylaxis Verified 01/11/22 17:47 [bee venom (honey bee)] Review of Systems ROS Statement: Those systems with pertinent positive or pertinent negative responses have been documented in the HPI. Review of Systems: CONST: Denies fever EYES: Denies blurry vision ENT: Denies nasal congestion C/V: Denies Chest pain RESP: Denies shortness of breath GI: Denies abdominal pain : Denies dysuria SKIN: Denies rash. MSK: Denies joint pain. NEURO: Denies headache ROS Other: All systems not noted in ROS Statement are negative. Past Medical History Past Medical History: No Reported History Additional Past Medical History / Comment(s): ADHD History of Any Multi-Drug Resistant Organisms: None Reported Past Surgical History: Ear Surgery, Orthopedic Surgery Additional Past Surgical History / Comment(s): 2 R meniscus repairs tubes in ears as child. Past Psychological History: ADD/ADHD Smoking Status: Former smoker Past Alcohol Use History: Rare Past Drug Use History: None Reported General Exam - General Exam Comments Initial Comments: General: Appears in no acute distress. HEAD: Normal with no signs of head trauma. EYES: PERRLA, EOMI, conjunctiva normal, no discharge. ENT: Hearing grossly intact, normal oropharynx. Mildly dry mucous membranes. RESPIRATORY: Clear breath sounds bilaterally. No wheezes, rales, or rhonchi. C/V: Regular rate and rhythm. S1 and S2 auscultated, no edema, peripheral pulses 2+ and intact throughout ABD: Abd is soft, nontender, nondistended EXT: Normal range of motion, no obvious deformity SKIN: No rashes or lesions observed on exposed skin. NEURO: Alert and oriented 4. Limitations: no limitations Course Vital Signs 01/11/22 15:15 Temperature 98.8 F Pulse Rate 89 Respiratory 18 Rate Blood Pressure 126/75 O2 Sat by Pulse 97 Oximetry Medical Decision Making - Medical Decision Making Abdomen the patient's presentation and physical exam, he may be experiencing an acute viral illness. He is concerned for dehydration. Due to the multiple episodes of emesis, do believe it is reasonable to start an IV and the patient obtain basic laboratory studies as well as Covid and strep testing. Patient was in agreement this plan. Chest x-ray will also be obtained. He'll be given a 1 L fluid bolus. Chest x-ray shows no acute cardio pulmonary process. Laboratory studies are remarkable for a negative strep test and negative Covid test. Remainder the labs are unremarkable. Vital signs remained within normal limits and stable. On reevaluation, patient is feeling improved. Tolerating oral intake. Believe it is safer to be discharged home at this time. Be given a work note. I will provide the patient with a prescription for ODT Zofran. I instructed the patient to follow up with their PCP in the next 1-3 days. I explained that the patient should return to the emergency department if they experience any worsening symptoms. Strict return precautions were discussed with the patient. The patient expressed understanding of these instructions. I answered all questions that the patient had. The patient was discharged home in good condition with their prescriptions and follow up information. - Lab Data Result diagrams: 01/11/22 17:15 01/11/22 17:15 Lab Results 01/11/22 01/11/22 01/11/22 Range/Units 17:15 17:15 17:42 WBC 7.5 (3.8-10.6) k/uL RBC 5.67 (4.30-5.90) m/uL Hgb 17.0 (13.0-17.5) gm/dL Hct 48.1 (39.0-53.0) % MCV 84.9 (80.0-100.0) fL MCH 30.0 (25.0-35.0) pg MCHC 35.4 (31.0-37.0) g/dL RDW 12.3 (11.5-15.5) % Plt Count 290 (150-450) k/uL MPV 6.9 Neutrophils % 61 % Lymphocytes % 29 % Monocytes % 5 % Eosinophils % 3 % Basophils % 1 % Neutrophils # 4.6 (1.3-7.7) k/uL Lymphocytes # 2.2 (1.0-4.8) k/uL Monocytes # 0.4 (0-1.0) k/uL Eosinophils # 0.2 (0-0.7) k/uL Basophils # 0.1 (0-0.2) k/uL Sodium 139 (137-145) mmol/L Potassium 4.1 (3.5-5.1) mmol/L Chloride 105 (98-107) mmol/L Carbon Dioxide 24 (22-30) mmol/L Anion Gap 10 mmol/L BUN 13 (9-20) mg/dL Creatinine 0.68 (0.66-1.25) mg/dL Est GFR (CKD-EPI)AfAm >90 (>60 ml/min/1.73 sqM) Est GFR (CKD-EPI)NonAf >90 (>60 ml/min/1.73 sqM) Glucose 88 (74-99) mg/dL Calcium 9.4 (8.4-10.2) mg/dL Total Bilirubin 1.3 (0.2-1.3) mg/dL AST 34 (17-59) U/L ALT 37 (4-49) U/L Alkaline Phosphatase 81 (38-126) U/L Total Protein 7.9 (6.3-8.2) g/dL Albumin 4.9 (3.5-5.0) g/dL Amylase 79 (30-110) U/L Lipase 74 (23-300) U/L Coronavirus (PCR) (Not Detectd) Group A Strep Rapid Negative (Negative) 01/11/22 Range/Units 17:42 WBC (3.8-10.6) k/uL RBC (4.30-5.90) m/uL Hgb (13.0-17.5) gm/dL Hct (39.0-53.0) % MCV (80.0-100.0) fL MCH (25.0-35.0) pg MCHC (31.0-37.0) g/dL RDW (11.5-15.5) % Plt Count (150-450) k/uL MPV Neutrophils % % Lymphocytes % % Monocytes % % Eosinophils % % Basophils % % Neutrophils # (1.3-7.7) k/uL Lymphocytes # (1.0-4.8) k/uL Monocytes # (0-1.0) k/uL Eosinophils # (0-0.7) k/uL Basophils # (0-0.2) k/uL Sodium (137-145) mmol/L Potassium (3.5-5.1) mmol/L Chloride (98-107) mmol/L Carbon Dioxide (22-30) mmol/L Anion Gap mmol/L BUN (9-20) mg/dL Creatinine (0.66-1.25) mg/dL Est GFR (CKD-EPI)AfAm (>60 ml/min/1.73 sqM) Est GFR (CKD-EPI)NonAf (>60 ml/min/1.73 sqM) Glucose (74-99) mg/dL Calcium (8.4-10.2) mg/dL Total Bilirubin (0.2-1.3) mg/dL AST (17-59) U/L ALT (4-49) U/L Alkaline Phosphatase (38-126) U/L Total Protein (6.3-8.2) g/dL Albumin (3.5-5.0) g/dL Amylase (30-110) U/L Lipase (23-300) U/L Coronavirus (PCR) Not Detected (Not Detectd) Group A Strep Rapid (Negative) Disposition Clinical Impression: Vomiting, Sore throat Disposition: HOME SELF-CARE Condition: Good Instructions (If sedation given, give patient instructions): Acute Nausea and Vomiting (DC) Is patient prescribed a controlled substance at d/c from ED?: No Referrals: None,Stated [Primary Care Provider] - 1-2 days Time of Disposition: 18:45
== END 2022-01-11 19:18 | disposition home or self-care (01) ==
LOC: EC 15:13
DX: J02.9 Acute pharyngitis, unspecified (principal); R11.2 Nausea with vomiting, unspecified; Z20.822 Contact with and (suspected) exposure to COVID-19; Z87.891 Personal history of nicotine dependence
CPT/HCPCS: 36415; 80053; 82150; 83690; 85025; 87081; 87430; 87635; 71045; 99284; 96374; 96375 ×3; 96361 ×2; J1200; J2405; J1885; C9113

== ENCOUNTER 2022-02-11 14:37 | Emergency (ER) | payer OTHER ==
[2022-02-11 14:40] VITALS: RESP 18; TEMP 97.9
[2022-02-11] MEDS ORDERED: MORPHINE SULFATE 4 MG/ML SYRINGE IV STA (17:45)
[2022-02-11] MEDS ORDERED: KETOROLAC 15 MG/ML 1 ML VIAL IVP STA (17:45)
[2022-02-11] MEDS ORDERED: ASPIRIN 81 MG PO STA (17:45)
[2022-02-11 18:33] LABS: Basophils # (A) 0.1 k/uL (0-0.2); Basophils % (A) 1 %; Eosinophils # (A) 0.3 k/uL (0-0.7); Eosinophils % (A) 4 %; HCT 46.8 % (39.0-53.0); Lymphocytes # (A) 2.5 k/uL (1.0-4.8); Lymphocytes % (A) 34 %; MCH 29.3 pg (25.0-35.0); MCHC 34.1 g/dL (31.0-37.0); MCV 86.1 fL (80.0-100.0); Monocytes # (A) 0.4 k/uL (0-1.0); Monocytes % (A) 5 %; Neutrophils # (A) 3.9 k/uL (1.3-7.7); Neutrophils % (A) 54 %; Platelet Count 291 k/uL (150-450); RBC 5.44 m/uL (4.30-5.90); RDW 12.2 % (11.5-15.5); WBC 7.2 k/uL (3.8-10.6)
[2022-02-11 18:44] LABS: ALT 18 U/L (4-49); AST 29 U/L (17-59); African American GFR (CKD) >90 (>60 ml/min/1.73 sqM); Albumin 4.6 g/dL (3.5-5.0); Alkaline Phosphatase 79 U/L (38-126); Anion Gap 13 mmol/L; Blood Urea Nitrogen 13 mg/dL (9-20); Calcium 9.5 mg/dL (8.4-10.2); Carbon Dioxide 22 mmol/L (22-30); Chloride 105 mmol/L (98-107); Glucose 85 mg/dL (74-99); Magnesium 2.1 mg/dL (1.6-2.3); Non-African American GFR(CKD) >90 (>60 ml/min/1.73 sqM); Sodium 140 mmol/L (137-145); Total Protein 7.3 g/dL (6.3-8.2)
[2022-02-11 18:45] LABS: INR 0.9 (<1.2); Partial Thromboplastin Time 26.7 sec (22.0-30.0); Prothrombin Time 10.3 sec (9.0-12.0)
[2022-02-11 18:53] LABS: Potassium 4.3 mmol/L (3.5-5.1)
--- NOTE | 2022-02-11 19:14 | XR ---
EXAMINATION TYPE: XR chest 2V DATE OF EXAM: 02/11/2022 6:10 PM COMPARISON: Chest radiographs from 07/27/2017 TECHNIQUE: XR chest 2V Frontal and lateral views of the chest. CLINICAL INDICATION:Male, 21 years old with history of Chest Pain; FINDINGS: Lungs/Pleura: There is no evidence of pleural effusion, focal consolidation, or pneumothorax. Pulmonary vascularity: Unremarkable. Heart/mediastinum: Cardiomediastinal silhouette is unremarkable. Musculoskeletal: No acute osseous pathology. IMPRESSION: No acute cardiopulmonary disease/process.
--- NOTE | 2022-02-11 19:48 | ED ---
General Adult HPI - General Chief complaint: Chest Pain Stated complaint: Chest pain Time Seen by Provider: 02/11/22 17:30 Source: patient, RN notes reviewed, old records reviewed Mode of arrival: ambulatory Limitations: no limitations - History of Present Illness Initial comments: Patient is a 21-year-old male with past medical history that is unremarkable who presents emergency department over concern for chest pain. Describes it as left-sided, sharp, achy located along a specific rib. States it radiates from his breast bone around the side of his chest. Worse with movement of his thorax or left arm. States it has been present for the last 2-3 days. Denies fevers, chills, cough, shortness of breath. Denies any nausea, vomiting, abdominal pain. Denies diarrhea. Has no other acute complaints at this time. Is concerned as his father recently had a heart attack. Wants to be evaluated for possible cardiac disease. - Related Data Home Medications Medication Instructions Recorded Confirmed No Known Home Medications 01/11/22 02/11/22 Allergies Allergy/AdvReac Type Severity Reaction Status Date / Time venom-honey bee Allergy Anaphylaxis Verified 02/11/22 18:40 [bee venom (honey bee)] Review of Systems ROS Statement: Those systems with pertinent positive or pertinent negative responses have been documented in the HPI. Review of Systems: CONST: Denies fever EYES: Denies blurry vision ENT: Denies nasal congestion C/V: Endorses chest pain RESP: Denies shortness of breath GI: Denies abdominal pain : Denies dysuria SKIN: Denies rash. MSK: Denies joint pain. NEURO: Denies headache ROS Other: All systems not noted in ROS Statement are negative. Past Medical History Past Medical History: No Reported History Additional Past Medical History / Comment(s): ADHD History of Any Multi-Drug Resistant Organisms: None Reported Past Surgical History: Ear Surgery, Orthopedic Surgery Additional Past Surgical History / Comment(s): 2 R meniscus repairs tubes in ears as child. Past Psychological History: ADD/ADHD Smoking Status: Former smoker Past Alcohol Use History: Rare Past Drug Use History: None Reported General Exam - General Exam Comments Initial Comments: General: Appears in no acute distress. HEAD: Normal with no signs of head trauma. EYES: PERRLA, EOMI, conjunctiva normal, no discharge. ENT: Hearing grossly intact, normal oropharynx. RESPIRATORY: Clear breath sounds bilaterally. No wheezes, rales, or rhonchi. C/V: Regular rate and rhythm. S1 and S2 auscultated. Peripheral pulses 2+ intact throughout. Patient has reproducible chest pain along the mid rib and sternum radiating around the chest. Seems to radiate around the rib cage. ABD: Abd is soft, nontender, nondistended EXT: Normal range of motion, no obvious deformity SKIN: No rashes or lesions observed on exposed skin. NEURO: Alert and oriented 4. Limitations: no limitations Course Vital Signs 02/11/22 02/11/22 14:38 20:14 Temperature 97.9 F Pulse Rate 68 50 L Respiratory 18 18 Rate Blood Pressure 113/75 114/71 O2 Sat by Pulse 97 100 Oximetry Medical Decision Making - Medical Decision Making Based on the patient's presentation and physical exam, and low suspicion for ACS at this time but we will obtain troponin, EKG, basic labs and chest x-ray. This be obtained anterior chest wall pain, as it is reproducible on palpation, worse with movement. Has been present for multiple days. Patient will be given IV analgesia, and was in agreement with the plan for labs. EKG showed no signs of acute ischemia. Chest x-ray showed no acute cardio primary process. Laboratory studies are remarkable for undetectable troponin. Remainder the labs are unremarkable. On reevaluation, after the patient the findings. Exposed understanding. Discuss that he is likely experiencing chest wall pain. Patient states the pain is improved. He is in agreement discharge home with follow-up with PCP. Strict return precautions were discussed. Recommended NSAIDs for pain control. I instructed the patient to follow up with their PCP in the next 1-3 days. I explained that the patient should return to the emergency department if they experience any worsening symptoms. Strict return precautions were discussed with the patient. The patient expressed understanding of these instructions. I a nswered all questions that the patient had. The patient was discharged home in good condition with their prescriptions and follow up information. - Lab Data Result diagrams: 02/11/22 18:22 02/11/22 18: Lab Results 02/11/22 02/11/22 02/11/22 Range/Units 18:22 18:22 18:22 WBC 7.2 (3.8-10.6) k/uL RBC 5.44 (4.30-5.90) m/uL Hgb 16.0 (13.0-17.5) gm/dL Hct 46.8 (39.0-53.0) % MCV 86.1 (80.0-100.0) fL MCH 29.3 (25.0-35.0) pg MCHC 34.1 (31.0-37.0) g/dL RDW 12.2 (11.5-15.5) % Plt Count 291 (150-450) k/uL MPV 7.0 Neutrophils % 54 % Lymphocytes % 34 % Monocytes % 5 % Eosinophils % 4 % Basophils % 1 % Neutrophils # 3.9 (1.3-7.7) k/uL Lymphocytes # 2.5 (1.0-4.8) k/uL Monocytes # 0.4 (0-1.0) k/uL Eosinophils # 0.3 (0-0.7) k/uL Basophils # 0.1 (0-0.2) k/uL PT 10.3 (9.0-12.0) sec INR 0.9 (<1.2) APTT 26.7 (22.0-30.0) sec Sodium 140 (137-145) mmol/L Potassium 4.3 (3.5-5.1) mmol/L Chloride 105 (98-107) mmol/L Carbon Dioxide 22 (22-30) mmol/L Anion Gap 13 mmol/L BUN 13 (9-20) mg/dL Creatinine 0.74 (0.66-1.25) mg/dL Est GFR (CKD-EPI)AfAm >90 (>60 ml/min/1.73 sqM) Est GFR (CKD-EPI)NonAf >90 (>60 ml/min/1.73 sqM) Glucose 85 (74-99) mg/dL Calcium 9.5 (8.4-10.2) mg/dL Magnesium 2.1 (1.6-2.3) mg/dL Total Bilirubin 1.0 (0.2-1.3) mg/dL AST 29 (17-59) U/L ALT 18 (4-49) U/L Alkaline Phosphatase 79 (38-126) U/L Troponin I (0.000-0.034) ng/mL Total Protein 7.3 (6.3-8.2) g/dL Albumin 4.6 (3.5-5.0) g/dL 02/11/22 Range/Units 18:22 WBC (3.8-10.6) k/uL RBC (4.30-5.90) m/uL Hgb (13.0-17.5) gm/dL Hct (39.0-53.0) % MCV (80.0-100.0) fL MCH (25.0-35.0) pg MCHC (31.0-37.0) g/dL RDW (11.5-15.5) % Plt Count (150-450) k/uL MPV Neutrophils % % Lymphocytes % % Monocytes % % Eosinophils % % Basophils % % Neutrophils # (1.3-7.7) k/uL Lymphocytes # (1.0-4.8) k/uL Monocytes # (0-1.0) k/uL Eosinophils # (0-0.7) k/uL Basophils # (0-0.2) k/uL PT (9.0-12.0) sec INR (<1.2) APTT (22.0-30.0) sec Sodium (137-145) mmol/L Potassium (3.5-5.1) mmol/L Chloride (98-107) mmol/L Carbon Dioxide (22-30) mmol/L Anion Gap mmol/L BUN (9-20) mg/dL Creatinine (0.66-1.25) mg/dL Est GFR (CKD-EPI)AfAm (>60 ml/min/1.73 sqM) Est GFR (CKD-EPI)NonAf (>60 ml/min/1.73 sqM) Glucose (74-99) mg/dL Calcium (8.4-10.2) mg/dL Magnesium (1.6-2.3) mg/dL Total Bilirubin (0.2-1.3) mg/dL AST (17-59) U/L ALT (4-49) U/L Alkaline Phosphatase (38-126) U/L Troponin I <0.012 (0.000-0.034) ng/mL Total Protein (6.3-8.2) g/dL Albumin (3.5-5.0) g/dL - EKG Data -: EKG Interpreted by Me EKG Comments: 12-lead Electrocardiogram Interpretation Note EKG was reviewed and interpreted by myself. 12-lead ECG performed at 1518 is interpreted by me as revealing sinus bradycardia at a rate of 51 beats per minute. [place] is normal. LA interval is 131 ms, QRS duration is 106 ms, QTc is 436 ms.. There were no ST or T wave abnormalities to suggest myocardial ischemia or injury. R wave progression across the precordium was satisfactory. By my interpretation this EKG is non-diagnostic for acute ischemia. Disposition Clinical Impression: Chest wall pain Disposition: HOME SELF-CARE Condition: Good Instructions (If sedation given, give patient instructions): Costochondritis (ED) Is patient prescribed a controlled substance at d/c from ED?: No Referrals: None,Stated [Primary Care Provider] - 1-2 days Halina Benites MD [REFERRING] - 1-2 days Time of Disposition: 19:35
[2022-02-11 20:16] VITALS: BP 114/71; PULSE 50
== END 2022-02-11 20:15 | disposition home or self-care (01) ==
LOC: EC 14:37
DX: R07.89 Other chest pain (principal); Z87.891 Personal history of nicotine dependence; Z91.030 Bee allergy status
CPT/HCPCS: 36415; 93005; 80053; 83735; 84484; 85025; 85610; 85730; 71046; 99285; 96374; 96375; J2270; J1885

== ENCOUNTER 2022-04-21 12:59 | Emergency (ER) | payer OTHER ==
[2022-04-21 13:04] VITALS: BP 125/50; PULSE 70; RESP 20; TEMP 96.8
--- NOTE | 2022-04-21 14:11 | XR ---
EXAMINATION TYPE: XR chest 2V DATE OF EXAM: 04/21/2022 COMPARISON: Chest x-ray 03/25/2022 HISTORY: Chest pain, upper respiratory symptoms TECHNIQUE: Frontal and lateral views of the chest are obtained. FINDINGS: There is no focal air space opacity, pleural effusion, or pneumothorax seen. The cardiac silhouette size is within normal limits. Suspect some bronchial wall thickening is present. The osse ous structures are intact. There is overlying artifact. IMPRESSION: Correlate for bronchitis, reactive airways disease, follow-up as indicated.
--- NOTE | 2022-04-21 15:10 | ED ---
General Adult HPI - General Chief complaint: Chest Pain Stated complaint: Chest Pain Time Seen by Provider: 04/21/22 14:53 Source: patient, RN notes reviewed, old records reviewed Mode of arrival: ambulatory Limitations: no limitations - History of Present Illness Initial comments: Well-appearing 19-year-old male presents to the emergency room with complaints of 4 days of intermittent sharp chest pain on the left side radiating down his left arm today. He has also been having fever and chills with dry cough. 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 He is a previous smoker, states quit a couple of months ago. -: days(s) (4) Location: chest Radiation: extremity (left arm), distal Severity scale (1-10): 9 Quality: sharp Consistency: intermittent, now resolved Improves with: medication (aspirin) Associated Symptoms: cough Treatments Prior to Arrival: Aspirin - Related Data Home Medications Medication Instructions Recorded Confirmed No Known Home Medications 01/11/22 02/11/22 Allergies Allergy/AdvReac Type Severity Reaction Status Date / Time venom-honey bee Allergy Anaphylaxis Verified 04/21/22 13:04 [bee venom (honey bee)] Review of Systems ROS Statement: Those systems with pertinent positive or pertinent negative responses have been documented in the HPI. ROS Other: All systems not noted in ROS Statement are negative. Past Medical History Past Medical History: No Reported History Additional Past Medical History / Comment(s): ADHD History of Any Multi-Drug Resistant Organisms: None Reported Past Surgical History: Ear Surgery, Orthopedic Surgery Additional Past Surgical History / Comment(s): 2 R meniscus repairs tubes in ears as child. Past Psychological History: ADD/ADHD Smoking Status: Former smoker Past Alcohol Use History: Rare Past Drug Use History: None Reported General Exam Limitations: no limitations General appearance: alert, in no apparent distress Eye exam: Absent: scleral icterus, conjunctival injection, periorbital swelling ENT exam: Present: mucous membranes moist Neck exam: Present: full ROM. Absent: tenderness, meningismus Respiratory exam: Present: normal lung sounds bilaterally. Absent: respiratory distress, wheezes, rales, rhonchi, stridor, chest wall tenderness, accessory muscle use, decreased breath sounds Cardiovascular Exam: Present: regular rate, normal rhythm GI/Abdominal exam: Present: soft. Absent: distended, tenderness, guarding, rebound, rigid Extremities exam: Present: full ROM, normal capillary refill. Absent: tenderness, pedal edema Back exam: Present: normal inspection, full ROM. Absent: tenderness, CVA tenderness (R), CVA tenderness (L), paraspinal tenderness, vertebral tenderness, rash noted Neurological exam: Present: alert, oriented X3, normal gait Psychiatric exam: Present: normal affect, normal mood Skin exam: Present: warm, dry, normal color. Absent: cyanosis, diaphoretic, petechiae, pallor Course Vital Signs 04/21/22 13:02 Temperature 96.8 F L Pulse Rate 70 Respiratory 20 Rate Blood Pressure 125/50 O2 Sat by Pulse 100 Oximetry EKG Findings - EKG Results: EKG: sinus rhythm (Ventricular rate 57, NV interval 0.121, QRS 0.96, QTC 0.385) Medical Decision Making - Medical Decision Making Patient presents with intermittent chest pain on the left side for the past few days. Chest pain today radiating down his left arm. EKG shows sinus bradycardia with ventricular rate 56. Troponin is negative at 0.012. He has a low heart score. He has been seen previously with similar chest pain in February of this year and had a negative cardiac workup. Although the patient states he has a history of a heart attack this year and seen at this facility, there is no evidence of this on EKGs at this facility. Patient was tested today for coronavirus and influenza and negative. He is afebrile. Vital signs are stable. Oxygen saturation is 100% on room air and lung sounds are clear to auscultation. Chest x-ray negative for infiltrates. Bronchial wall thickening is present consistent with bronchitis. This may be the source for his intermittent chest pain. He also admits to recently quitting smoking. I have a low suspicion that this is cardiac in nature. He was directed to follow-up with his primary care doctor for continuation of care, he turned to the emergency room with any new or concerning symptoms. Take Tylenol or Motrin as needed for any pain or discomfort, increase his fluid intake. Patient is agreeable to this plan of care. Case discussed with Dr. Toribio. - Lab Data Result diagrams: 04/21/22 15:47 04/21/22 15:47 Lab Results 04/21/22 04/21/22 04/21/22 Range/Units 14:07 15:15 15:47 WBC 6.7 (3.8-10.6) k/uL RBC 5.47 (4.30-5.90) m/uL Hgb 16.8 (13.0-17.5) gm/dL Hct 46.2 (39.0-53.0) % MCV 84.5 (80.0-100.0) fL MCH 30.7 (25.0-35.0) pg MCHC 36.3 (31.0-37.0) g/dL RDW 12.1 (11.5-15.5) % Plt Count 242 (150-450) k/uL MPV 7.5 Neutrophils % 61 % Lymphocytes % 29 % Monocytes % 5 % Eosinophils % 3 % Basophils % 1 % Neutrophils # 4.1 (1.3-7.7) k/uL Lymphocytes # 1.9 (1.0-4.8) k/uL Monocytes # 0.4 (0-1.0) k/uL Eosinophils # 0.2 (0-0.7) k/uL Basophils # 0.1 (0-0.2) k/uL Sodium (137-145) mmol/L Potassium (3.5-5.1) mmol/L Chloride (98-107) mmol/L Carbon Dioxide (22-30) mmol/L Anion Gap mmol/L BUN (9-20) mg/dL Creatinine (0.66-1.25) mg/dL Est GFR (CKD-EPI)AfAm (>60 ml/min/1.73 sqM) Est GFR (CKD-EPI)NonAf (>60 ml/min/1.73 sqM) Glucose (74-99) mg/dL Calcium (8.4-10.2) mg/dL Magnesium (1.6-2.3) mg/dL Total Bilirubin (0.2-1.3) mg/dL AST (17-59) U/L ALT (4-49) U/L Alkaline Phosphatase (38-126) U/L Troponin I (0.000-0.034) ng/mL Total Protein (6.3-8.2) g/dL Albumin (3.5-5.0) g/dL Coronavirus (PCR) Not Detected (Not Detectd) Influenza Type A RNA Not Detected (Not Detectd) Influenza Type B (PCR) Not Detected (Not Detectd) 04/21/22 04/21/22 Range/Units 15:47 15:47 WBC (3.8-10.6) k/uL RBC (4.30-5.90) m/uL Hgb (13.0-17.5) gm/dL Hct (39.0-53.0) % MCV (80.0-100.0) fL MCH (25.0-35.0) pg MCHC (31.0-37.0) g/dL RDW (11.5-15.5) % Plt Count (150-450) k/uL MPV Neutrophils % % Lymphocytes % % Monocytes % % Eosinophils % % Basophils % % Neutrophils # (1.3-7.7) k/uL Lymphocytes # (1.0-4.8) k/uL Monocytes # (0-1.0) k/uL Eosinophils # (0-0.7) k/uL Basophils # (0-0.2) k/uL Sodium 140 (137-145) mmol/L Potassium 4.2 (3.5-5.1) mmol/L Chloride 101 (98-107) mmol/L Carbon Dioxide 27 (22-30) mmol/L Anion Gap 12 mmol/L BUN 16 (9-20) mg/dL Creatinine 0.78 (0.66-1.25) mg/dL Est GFR (CKD-EPI)AfAm >90 (>60 ml/min/1.73 sqM) Est GFR (CKD-EPI)NonAf >90 (>60 ml/min/1.73 sqM) Glucose 94 (74-99) mg/dL Calcium 9.6 (8.4-10.2) mg/dL Magnesium 2.1 (1.6-2.3) mg/dL Total Bilirubin 0.4 (0.2-1.3) mg/dL AST 26 (17-59) U/L ALT 19 (4-49) U/L Alkaline Phosphatase 98 (38-126) U/L Troponin I <0.012 (0.000-0.034) ng/mL Total Protein 7.1 (6.3-8.2) g/dL Albumin 4.7 (3.5-5.0) g/dL Coronavirus (PCR) (Not Detectd) Influenza Type A RNA (Not Detectd) Influenza Type B (PCR) (Not Detectd) Disposition Clinical Impression: Chest pain Disposition: HOME SELF-CARE Condition: Good Instructions (If sedation given, give patient instructions): Chest Pain (ED), Costochondritis (ED) Additional Instructions: You were evaluated for chest pain today. Your EKG and lab work did not show any area of concern. Your x-ray shows some bronchitis which is likely viral. Your influenza and coronavirus swab is negative. I recommend you increase your fluid intake. Take Tylenol and/or Motrin as needed for any pain or discomfort. Follow-up with your primary care doctor this week. Is patient prescribed a controlled substance at d/c from ED?: No Referrals: None,Stated [Primary Care Provider] - 1-2 days Time of Disposition: 17:50
[2022-04-21] MEDS ORDERED: KETOROLAC 15 MG/ML 1 ML VIAL IM STA (15:16)
[2022-04-21 16:08] LABS: Basophils # (A) 0.1 k/uL (0-0.2); Basophils % (A) 1 %; Eosinophils # (A) 0.2 k/uL (0-0.7); Eosinophils % (A) 3 %; HCT 46.2 % (39.0-53.0); HGB 16.8 gm/dL (13.0-17.5); Lymphocytes # (A) 1.9 k/uL (1.0-4.8); Lymphocytes % (A) 29 %; MCH 30.7 pg (25.0-35.0); MCHC 36.3 g/dL (31.0-37.0); MCV 84.5 fL (80.0-100.0); Mean Platelet Volume 7.5; Monocytes # (A) 0.4 k/uL (0-1.0); Monocytes % (A) 5 %; Neutrophils # (A) 4.1 k/uL (1.3-7.7); Neutrophils % (A) 61 %; Platelet Count 242 k/uL (150-450); RBC 5.47 m/uL (4.30-5.90); RDW 12.1 % (11.5-15.5); WBC 6.7 k/uL (3.8-10.6)
[2022-04-21 16:14] LABS: ALT 19 U/L (4-49); AST 26 U/L (17-59); African American GFR (CKD) >90 (>60 ml/min/1.73 sqM); Albumin 4.7 g/dL (3.5-5.0); Alkaline Phosphatase 98 U/L (38-126); Anion Gap 12 mmol/L; Blood Urea Nitrogen 16 mg/dL (9-20); Calcium 9.6 mg/dL (8.4-10.2); Carbon Dioxide 27 mmol/L (22-30); Chloride 101 mmol/L (98-107); Glucose 94 mg/dL (74-99); Magnesium 2.1 mg/dL (1.6-2.3); Non-African American GFR(CKD) >90 (>60 ml/min/1.73 sqM); Potassium 4.2 mmol/L (3.5-5.1); Sodium 140 mmol/L (137-145); Total Bilirubin 0.4 mg/dL (0.2-1.3); Total Protein 7.1 g/dL (6.3-8.2)
== END 2022-04-21 17:59 | disposition home or self-care (01) ==
LOC: EC 12:59
DX: R07.9 Chest pain, unspecified (principal); Z87.891 Personal history of nicotine dependence; Z91.030 Bee allergy status; Z20.822 Contact with and (suspected) exposure to COVID-19
CPT/HCPCS: 36415; 93005; 80053; 83735; 84484; 85025; 87502; 87635; 71046; 99285; 96372; J1885

== ENCOUNTER 2022-05-20 20:25 | Emergency (ER) | payer OTHER ==
[2022-05-20 20:29] VITALS: BP 118/72; PULSE 107; RESP 20; TEMP 98.5
--- NOTE | 2022-05-20 21:33 | ED ---
URI HPI - General Chief Complaint: Upper Respiratory Infection Stated Complaint: Fever Time Seen by Provider: 05/20/22 21:16 Source: patient, RN notes reviewed, old records reviewed Mode of arrival: ambulatory Limitations: no limitations - History of Present Illness Initial Comments: This is a 19-year-old male DF for evaluation, patient concern for cough and congestion. A shows. Multiple falls with covert or coronavirus recently. Patient coming in for coronavirus testing MD Complaint: cough, other (Coronavirus exposure) -: days(s) Severity: mild Severity scale (1-10): 1 Improves With: nothing Worsens With: nothing Associated Symptoms: denies other symptoms Treatments Prior to Arrival: none - Related Data Home Medications Medication Instructions Recorded Confirmed No Known Home Medications 01/11/22 02/11/22 Allergies Allergy/AdvReac Type Severity Reaction Status Date / Time venom-honey bee Allergy Anaphylaxis Verified 05/22/22 00:35 [bee venom (honey bee)] Review of Systems ROS Statement: Those systems with pertinent positive or pertinent negative responses have been documented in the HPI. ROS Other: All systems not noted in ROS Statement are negative. Past Medical History Past Medical History: No Reported History Additional Past Medical History / Comment(s): ADHD History of Any Multi-Drug Resistant Organisms: None Reported Past Surgical History: Ear Surgery, Orthopedic Surgery Additional Past Surgical History / Comment(s): 2 R meniscus repairs tubes in ears as child. Past Psychological History: ADD/ADHD Smoking Status: Former smoker Past Alcohol Use History: Rare Past Drug Use History: None Reported General Exam Limitations: no limitations General appearance: alert, in no apparent distress Head exam: Present: atraumatic, normocephalic, normal inspection Eye exam: Present: normal appearance, PERRL, EOMI. Absent: scleral icterus, conjunctival injection, periorbital swelling ENT exam: Present: normal exam, mucous membranes moist Neck exam: Present: normal inspection. Absent: tenderness, meningismus, lymphadenopathy Respiratory exam: Present: normal lung sounds bilaterally. Absent: respiratory distress, wheezes, rales, rhonchi, stridor Cardiovascular Exam: Present: regular rate, normal rhythm, normal heart sounds. Absent: systolic murmur, diastolic murmur, rubs, gallop, clicks GI/Abdominal exam: Present: soft, normal bowel sounds. Absent: distended, tenderness, guarding, rebound, rigid Extremities exam: Present: normal inspection, full ROM, normal capillary refill. Absent: tenderness, pedal edema, joint swelling, calf tenderness Back exam: Present: normal inspection Neurological exam: Present: alert, oriented X3, CN II-XII intact Psychiatric exam: Present: normal affect, normal mood Skin exam: Present: warm, dry, intact, normal color. Absent: rash Course Vital Signs 05/20/22 20:28 Temperature 98.5 F Pulse Rate 107 H Respiratory 20 Rate Blood Pressure 118/72 O2 Sat by Pulse 100 Oximetry - Reevaluation(s) Reevaluation #1: 05/21/22 medical record is reviewed patient symptoms are improved patient is imformed of results and questions answered Medical Decision Making - Medical Decision Making 21 male to the emergency department for evaluation. Patient seen and evaluated here in the ER and can be discharged home - Lab Data Lab Results 05/20/22 05/20/22 Range/Units 20:24 20:24 Coronavirus (PCR) Not Detected (Not Detectd) Influenza Type A RNA Not Detected (Not Detectd) Influenza Type B (PCR) Not Detected (Not Detectd) Disposition Clinical Impression: Common cold, Normal exam Disposition: HOME SELF-CARE Condition: Good Instructions (If sedation given, give patient instructions): Upper Respiratory Infection (ED) Is patient prescribed a controlled substance at d/c from ED?: No Referrals: None,Stated [Primary Care Provider] - 1-2 days Time of Disposition: 21:35
== END 2022-05-20 21:40 | disposition home or self-care (01) ==
LOC: EC 20:25
DX: Z00.00 Encounter for general adult medical examination without abnormal findings (principal); J00 Acute nasopharyngitis [common cold]; Z87.891 Personal history of nicotine dependence; Z91.030 Bee allergy status; Z20.822 Contact with and (suspected) exposure to COVID-19
CPT/HCPCS: 87502; 87635; 99283

== ENCOUNTER 2022-05-22 00:16 | Emergency (ER) | payer OTHER ==
[2022-05-22 00:38] VITALS: TEMP 98
[2022-05-22] MEDS ORDERED: LORazepam 1 MG TAB PO STA (01:46)
--- NOTE | 2022-05-22 02:35 | XR ---
EXAMINATION TYPE: XR chest 2V DATE OF EXAM: 05/22/2022 COMPARISON: 04/21/2022 HISTORY: Heart racing TECHNIQUE: 2 view FINDINGS: Heart and mediastinum are normal. Lungs are clear. Diaphragm is normal. Bony thorax is inta ct. IMPRESSION: Normal chest. No change.
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
[2022-05-22 05:38] VITALS: BP 137/67; PULSE 78; RESP 15
== END 2022-05-22 05:38 | disposition home or self-care (01) ==
LOC: EC 00:16
DX: F41.9 Anxiety disorder, unspecified (principal); F90.9 Attention-deficit hyperactivity disorder, unspecified type; Z87.891 Personal history of nicotine dependence; Z91.030 Bee allergy status
CPT/HCPCS: 71046; 93005; 99283

== ENCOUNTER 2022-06-27 14:27 | Inpatient (IN) | payer MEDICAID, OTHER ==
--- NOTE | 2022-06-27 15:19 | XR ---
EXAMINATION TYPE: XR chest 2V DATE OF EXAM: 06/27/2022 COMPARISON: 05/22/2022 HISTORY: Cough TECHNIQUE: Frontal and lateral views of the chest are obtained. FINDINGS: There is no focal air space opacity, pleural effusion, or pneumothorax seen. The cardiac silhouette size is within normal limits. The osseous structures are intact. IMPRESSION: No acute cardiopulmonary process.
[2022-06-27] MEDS ORDERED: DEXAMETHASONE SOD PHOSPHATE 10 MG/ML 1 ML VIAL IM STA (15:30)
[2022-06-27] MEDS ORDERED: IPRATROPIUM-ALBUTEROL 3 ML NEB INHALATION STA (15:30)
--- NOTE | 2022-06-27 15:47 | ED ---
URI HPI - General Chief Complaint: Upper Respiratory Infection Stated Complaint: cough,chest congested Time Seen by Provider: 06/27/22 14:44 Source: patient, RN notes reviewed Mode of arrival: ambulatory Limitations: no limitations - History of Present Illness Initial Comments: This is a 21-year-old male who presents to the emergency department for coughing and congestion. States that over the last week, he has had persistent coughing with a minor increase in difficulty breathing. He has tried [id number] Mucinex, Robitussin, and cough drops with no relief. Denies any fevers or sick contacts. He is not a current smoker and he has never been diagnosed with asthma. Additionally, when I was about to leave the room, the patient states, "I want to go up to [address]. ". He states that he does not feel safe. He denies any suicidal or homicidal ideations, but feels like he is having visual hallucinations of objects. Denies any history of similar symptoms in the past. He does however have a psychiatric history and has been evaluated here for mental health purposes before. He was most recently admitted for psychiatric management here in December 2020. Patient is noted to be homeless and sleeping outside. Denies any fevers, chills, sore throat, chest pain, palpitations, abdominal pain, nausea, vomiting, diarrhea, back pain, or headaches. MD Complaint: cough, nasal congestion Onset/Timin -: week(s) Improves With: OTC cold medicine - Related Data Home Medications Medication Instructions Recorded Confirmed No Known Home Medications 01/11/22 06/27/22 Allergies Allergy/AdvReac Type Severity Reaction Status Date / Time venom-honey bee Allergy Anaphylaxis Verified 06/27/22 15:40 [bee venom (honey bee)] Review of Systems ROS Statement: Those systems with pertinent positive or pertinent negative responses have been documented in the HPI. ROS Other: All systems not noted in ROS Statement are negative. Past Medical History Past Medical History: No Reported History Additional Past Medical History / Comment(s): ADHD History of Any Multi-Drug Resistant Organisms: None Reported Past Surgical History: Ear Surgery, Orthopedic Surgery Additional Past Surgical History / Comment(s): 2 R meniscus repairs tubes in ears as child. Past Psychological History: ADD/ADHD Smoking Status: Former smoker Past Alcohol Use History: Rare Past Drug Use History: None Reported General Exam Limitations: no limitations General appearance: alert, in no apparent distress Head exam: Present: atraumatic, normocephalic, normal inspection Respiratory exam: Present: normal lung sounds bilaterally. Absent: respiratory distress, wheezes, rales, rhonchi, stridor Cardiovascular Exam: Present: regular rate, normal rhythm, normal heart sounds. Absent: systolic murmur, diastolic murmur, rubs, gallop, clicks Neurological exam: Present: alert, oriented X3, CN II-XII intact Psychiatric exam: Present: flat affect Skin exam: Present: warm, dry, intact, normal color. Absent: rash Course Vital Signs 06/27/22 14:32 Temperature 96.9 F L Pulse Rate 94 Respiratory 22 Rate Blood Pressure 123/77 O2 Sat by Pulse 99 Oximetry Medical Decision Making - Medical Decision Making This is a 21-year-old male who presents to the emergency department for coughing, congestion, and psychiatric evaluation. Patient is negative for Covid, influenza, and RSV. My interpretation of his chest x-ray identifies no acute cardiopulmonary process. Patient was evaluated by EPS, we will admit him to 3 for acute hallucinations with notable psychiatric history and concerns of homelessness. Decadron and a DuoNeb breathing treatment were ordered with regards to his upper respiratory symptoms. This will be administered after the patient is brought upstairs. This case was discussed in detail with the attending ED physician. Presentation, findings, and treatment plan discussed in detail as well. - Lab Data Lab Results 06/27/22 Range/Units 14:51 Influenza Type A (PCR) Not Detected (Not Detectd) Influenza Type B (PCR) Not Detected (Not Detectd) RSV (PCR) Not Detected (Not Detectd) SARS-CoV-2 (PCR) Not Detected (Not Detectd) - Radiology Data Radiology results: report reviewed, image reviewed Disposition Clinical Impression: Viral infection, Visual hallucinations Disposition: ADMITTED IP TO THIS HOSP
[2022-06-27] MEDS ORDERED: HALOPERIDOL LACTATE 5 MG/ML 1 ML VIAL IM PRN (16:12)
[2022-06-27] MEDS ORDERED: MAG HYDROX/AL HYDROX/SIMETH 30 ML CUP PO PRN (16:12)
[2022-06-27] MEDS ORDERED: ACETAMINOPHEN TAB 325 MG TAB PO PRN (16:12)
[2022-06-27] MEDS ORDERED: MAGNESIUM HYDROXIDE 2,400 MG/10 ML CUP PO PRN (16:12)
[2022-06-27] MEDS ORDERED: haloperidoL 5 MG TAB PO PRN (16:15)
[2022-06-27] MEDS ORDERED: LORazepam 2 MG/ML INJ IM PRN (16:15)
[2022-06-27 18:30] LABS: Basophils # (A) 0.1 k/uL (0-0.2); Basophils % (A) 1 %; Eosinophils # (A) 0.2 k/uL (0-0.7); Eosinophils % (A) 2 %; HCT 47.3 % (39.0-53.0); Lymphocytes # (A) 2.3 k/uL (1.0-4.8); Lymphocytes % (A) 30 %; MCH 30.4 pg (25.0-35.0); MCHC 35.9 g/dL (31.0-37.0); MCV 84.8 fL (80.0-100.0); Mean Platelet Volume 7.4; Monocytes # (A) 0.3 k/uL (0-1.0); Monocytes % (A) 4 %; Neutrophils # (A) 4.6 k/uL (1.3-7.7); Neutrophils % (A) 61 %; Platelet Count 353 k/uL (150-450); RBC 5.58 m/uL (4.30-5.90); RDW 12.1 % (11.5-15.5); WBC 7.6 k/uL (3.8-10.6)
[2022-06-27 18:33] LABS: ALT 22 U/L (4-49); AST 26 U/L (17-59); African American GFR (CKD) >90 (>60 ml/min/1.73 sqM); Albumin 4.5 g/dL (3.5-5.0); Alkaline Phosphatase 67 U/L (38-126); Anion Gap 6 mmol/L; Blood Urea Nitrogen 18 mg/dL (9-20); Calcium 9.6 mg/dL (8.4-10.2); Carbon Dioxide 29 mmol/L (22-30); Chloride 106 mmol/L (98-107); Glucose 90 mg/dL (74-99); Non-African American GFR(CKD) >90 (>60 ml/min/1.73 sqM); Potassium 4.3 mmol/L (3.5-5.1); Sodium 141 mmol/L (137-145); Total Bilirubin 0.6 mg/dL (0.2-1.3); Total Protein 7.2 g/dL (6.3-8.2)
[2022-06-28] MEDS ORDERED: ONDANSETRON 4 MG/2 ML VIAL IVP PRN (03:10)
--- NOTE | 2022-06-28 03:14 | HP ---
DATE OF SERVICE 06/27/2022 HISTORY AND PHYSICAL IDENTIFYING DATA: The patient is a 21-year-old male. He reports that he is homeless and has been living in a tent in various areas around this general area. He presented to the ED for evaluation. CHIEF COMPLAINT: The patient believed that he had seen someone that he was talking to though the person was not there. HISTORY OF PRESENTING ILLNESS: This is the patient's second psychiatric hospitalization. He had a previous admission on December 08, 2020. He was diagnosed with psychosis and substance use issues. There was only minimal documentation from his previous admission in regard to clarifying a psychiatric history. He was admitted at that time because he said he was having strange experiences such as seeing a car drive past him over and over. On discharge from December 2020 admission, he was on Abilify 20 mg a day, Desyrel 50 mg a day, and was to be on Abilify Maintena 400 mg. He said he stopped taking all his medications after 1 month. He said that he felt "restricted" and also felt "off." He had difficulty describing in specifics what the effects of those medicines were, though he said he did not like the feeling of them. He notes that since his December 2020 admission, he has not had any unusual experiences like he was having at that time. He reports that in recent weeks and months, he has had a good mood. He says he has good energy. He has done some social activities. He has been out looking for a job. He feels he has good energy and motivation. He does not identify any hallucinations or delusional thinking leading up to his current situation. He does not clearly describe any hypomanic or manic symptoms. He reports no issues with anxiety or panic. He states that he is not aware of having any significant traumatic experiences in his past nor having any flashbacks or reliving of trauma. He said generally his sleep has been fair, though he had difficulty. He has had difficulty with the cold weather as far as sleep. His appetite is reasonable. He states that he quit drugs after his December 2020 admission, though he was vague on specifics of drug use. He notes that he has not been drinking alcohol. He says currently he does smoke marijuana "once in a while", though did not provide much detail for that. He is not currently taking any psychotropic medications. He had a follow through [facility] and stopped going soon after the 2020 admission. He is admitted for further evaluation. SUBSTANCE USE HISTORY: As above. PAST MEDICAL HISTORY: The patient reports no current or chronic general health complaints. FAMILY AND SOCIAL HISTORY: The patient had been working recently doing paper delivery, though quit about one week ago. He said that he was anticipating getting a factory job, though so far he had not heard any more about that. He has done some snow removal work. He notes that he has his mother in the area and also has a brother and sister, though he does not have contact with them. He says that his family does not want him around [place]. He stays disconnected from family. Other social support is uncertain. MENTAL STATUS EXAMINATION: Patient was somewhat restless. He gave fair eye contact, though attended to look off in the distance and down. He answered questions with brief responses. He had a monotone soft voice. He did not say much. His affect was flat, mood reserved. He seems somewhat distressed. He described 1 episode of unreal experience of talking to someone who was not there. He denies any thoughts of harm. On cognitive exam, he was oriented and alert. He was able to remember 2/3 objects in 4 minutes. He could give the days of the week in reverse order slowly, but appropriately. Insight and judgment are uncertain. PHYSICAL EXAMINATION: As per medical consultation. ASSESSMENT: This 21-year-old male is diagnosed with possible psychosis of unclear etiology. He does not have an ongoing history of experiences of unreality. He suggests that there may be substance use issues in the picture, namely marijuana. He seems to have very limited social support. DIAGNOSIS: 1. Rule out psychosis. 2. Marijuana use. RECOMMENDATIONS: Patient will be admitted for comprehensive medical psychiatric and psychosocial evaluation. We will engage the patient in individual and group therapeutic activities. Given that the patient has had just 1 episode of unusual experience that may or may not be psychotic, I will defer starting any medications at this time. We will monitor to see how the patient does and what he is able to inform us about in terms of his experiences. I will prescribe trazodone 75 mg at bedtime p.r.n. I reviewed issues with the patient in regard to how we might monitor and consider followup planning. We will focus on stabilization and discharge planning. MMODL / IJN: [id number] / LAI
[2022-06-28] MEDS ORDERED: ONDANSETRON 4 MG/2 ML VIAL IM PRN (03:18)
--- NOTE | 2022-06-28 04:05 | P.PN ---
Progress Note - Text Progress Note Date: 06/27/22 unable to evaluate patient is sleeping
[2022-06-28] MEDS ORDERED: ONDANSETRON ODT 4 MG TAB PO PRN (08:04)
[2022-06-28] MEDS: NICOTINE 14MG/24HR PATCH TRANSDERM SCH (08:47)
[2022-06-28 11:34] LABS: Chol/HDL Ratio 3.29 Ratio; VLDL Calculation 17.22 mg/dL (5.00-40.00)
[2022-06-28] MEDS ORDERED: ONDANSETRON 4 MG TAB PO PRN (16:55)
[2022-06-28] MEDS: ONDANSETRON 4 MG TAB PO PRN (17:29)
--- NOTE | 2022-06-28 23:41 | P.PN ---
Progress Note - Text Progress Note Date: 06/28/22 patient refused medical evaluation at this time
[2022-06-29] MEDS: ONDANSETRON 4 MG TAB PO PRN ×2 (08:46→20:15)
[2022-06-29] MEDS: NICOTINE 14MG/24HR PATCH TRANSDERM SCH ×2 (08:49→09:53)
--- NOTE | 2022-06-29 11:07 | PN ---
PROGRESS NOTE DATE OF SERVICE: 06/28/2022 CHIEF COMPLAINT: The patient believed that he had seen someone that he was talking to, though the person was not there. INTERVAL HISTORY: The patient has been doing fair. He had a quiet day yesterday. He would wander about. He did not interact too much with others. He was appropriate in his interaction with staff. He has been compliant with care. He said he slept until about 4 in the morning. It is noted that he had some episodes of emesis that he thought likely related to Decadron IM that he received. He declined taking Maalox, though said as the day went on, things are quite down for him as far as GI complaints. Today, he has been up. He has not been attending groups. He wanders in the unit. He voiced no specific complaints or concerns today. He says that he has not had any unusual experiences like the one that he had, that brought him to the hospital. He was vague as to what led him coming to the hospital for this particular experience he had of believing someone was talking to him, yet was not there. It was difficult to get clarification as to why this one-time experience seemed to be distressing enough to him, where he felt he needed to come to the hospital. He says today that he has not had any worries or concerns about these issues. He did not choose to take trazodone last night which has been ordered p.r.n. He has not been showing any outward signs of responding to internal stimuli or having any disruptions in his thoughts or behavior. MENTAL STATUS EXAMINATION: The patient gave fairly good eye contact. He was somewhat restless. He answered questions with brief responses. He made a few different spontaneous comments. His thoughts were clear and coherent. His affect was a little constricted. He had a quiet manner. He did not appear to be clearly depressed or distressed. There was no outward evidence of thought disorder. He voiced no thoughts of harm. Cognition was clear. ASSESSMENT: I will continue the current diagnosis and treatment plan. At this point, the patient will continue off psychotropic medications. We will continue to observe and work to better clarify issues relating to possible thought disorder. We will focus on stabilization and discharge planning. MMODL / IJN: [id number] /
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
--- NOTE | 2022-06-30 09:04 | PN ---
PROGRESS NOTE DATE OF SERVICE: 06/30/2022 CHIEF COMPLAINT: The patient believes that he had seen someone that he was talking to, though the person was not there. INTERVAL HISTORY: The patient has been doing fairly well. He had a quiet day yesterday. He comes out on the unit. He wanders about, he seems to prefer doing personal activities. He does socialize with others. He chooses not to attend groups. He seems to present with a fairly even mood, though possibly showing some signs of elevated mood. He slept 6 hours last night. Today, he has been up and out on the unit. He continues off all psychotropic medications. Again, he seems to show some signs of mild mood elevation. He does not voice any sense of having unusual experiences as what he described before coming into the hospital. He continues off psychotropic. MENTAL STATUS EXAM: The patient gave a good eye contact. He answered questions with direct responses. His thoughts were clear. His affect was in a reasonable range. His mood is even if not mildly elevated. He shows no signs of distress. There is question of thought disorder. He voices no thoughts of harm. Cognition was clear. ASSESSMENT: I will continue the current diagnosis and treatment plan. The patient will continue off psychotropic medications. He has been stable out through the last few days. He is not showing any outward signs of psychotic symptoms. Whether or not there is any indication for some hypomania remains to be seen. The patient is appropriate to be discharged tomorrow with followup to be put in place. ANGELITO / BRANDEEN: [id number] /
[2022-06-30] MEDS: NICOTINE 14MG/24HR PATCH TRANSDERM SCH ×2 (09:43→16:07)
[2022-06-30] MEDS: LORazepam 1 MG TAB PO PRN (21:58)
[2022-07-01 06:37] VITALS: TEMP 97.8
[2022-07-01] MEDS: NICOTINE 14MG/24HR PATCH TRANSDERM SCH (08:41)
[2022-07-01] MEDS: LORazepam 1 MG TAB PO PRN ×2 (08:42→18:11)
--- NOTE | 2022-07-01 13:00 | P.PN ---
Progress Note - Text Progress Note Date: 07/01/22 Interval History: Patient was seen wandering the hallways and was directable and agreeable to speak with technical proposal writer in the office. The patient signed an AMA notice for discharge that is up on 07/02/2022 at noon. Currently, the patient is not reporting any suicidal or homicidal ideation, intention, and/or plan. The patient is not prescribed any medications at this time however reports that he is feeling well. He does report that he is currently homeless. Mental Status Exam: General Appearance: Patient appears to be stated age is alert, directable, and cooperative. Behavior: Patient is calmly seated without any agitated behavior. Speech: Patient's speech is fluent and nonpressured. Mood/Affect: Mood is improving mildly, affect is congruent and constricted. Suicidality/Homicidality: Patient denies having any suicidal or homicidal ideation intent or plan. Perceptions: Patient denies any visual hallucinations and denies any auditory hallucinations Though content/process: There is no evidence of any delusional thought content and thought process is linear and goal-directed. Memory and concentration: AOX3, grossly intact for the purposes of this session Judgment and insight: Fair Vital Signs Temp 97.8 F 07/01/22 03:00 Pulse 57 L 07/01/22 03:00 Resp 17 07/01/22 03:00 BP 109/56 07/01/22 03:00 Pulse Ox 95 07/01/22 03:00 FiO2 Assessment Acute psychotic episode, appears resolved Tobacco use disorder Plan: -Anticipate discharge tomorrow. -Patient continues to meet criteria for inpatient psychiatric admission for symptom stabilization and safety. Patient has signed adult voluntary form and medication consent and was placed in patient's chart. -Medications: Melatonin 5 mg by mouth at bedtime for insomnia -When necessary Ativan and Haldol for agitation/aggression. -NRT - nicotine patch -SW on board for discharge planning. Encouraged the patient to participate in milieu.
[2022-07-01] MEDS ORDERED: MELATONIN 5 MG TABLET PO SCH (21:00)
[2022-07-02 07:11] VITALS: BP 98/53; PULSE 67; RESP 16
[2022-07-02] MEDS: NICOTINE 14MG/24HR PATCH TRANSDERM SCH ×2 (09:42→09:52)
[2022-07-02] MEDS: LORazepam 1 MG TAB PO PRN (09:51)
--- NOTE | 2022-07-02 13:32 | P.DS ---
Providers Date of admission: 06/27/22 15:57 Expected date of discharge: 07/02/22 Attending physician: Keagan Gonsalves MD Consults: 06/27/22 16:12 Consult Physician Routine Consulting Provider: Davon Physician Consult Reason/Comments: medical management Do you want consulting provider notified?: Yes Primary care physician: Stated None - Discharge Diagnosis(es) (1) Acute psychosis Current Visit: Yes Status: Acute Priority: High (2) Tobacco use disorder Current Visit: Yes Status: Chronic Priority: Medium (3) Malingering Current Visit: Yes Status: Suspected Priority: Low Hospital Course: Admission HPI: Initial psychiatric evaluation was completed by Dr. Walsh on 06/27/2022 who wrote: "The patient is a 21-year-old male. He reports that he is homeless and has been living in a tent in various areas around this [facility] area. He presented to the [facility] for evaluation. CC: The patient believes that he had seen and spoken to someone that was not really there. HPI: This is the patient's second psychiatric hospitalization. He had a previous admission on 12/08/2020. He was diagnosed with psychosis and substance use issues. There is only minimal documentation from his previous admission in regard clarifying psychiatric history. The patient was discharged from his previous admission on a regimen of Abilify maintena 400 mg IM, abilify, and trazodone however admitted to stopping all of his medications one month after his discharge. He said that he felt "restricted" and also felt "off." He notes that since his December 2020 admission, he has not had any unusual experiences like he was having at that time. He reports that in recent weeks and months, he has had a good mood. He says he has good energy. He is done some social activities. He has been looking for a job. He does not identify any hallucinations or delusional thinking leading up to this current situation. He does not clearly describe any hypomanic or manic symptoms. He reports no issues with anxiety or panic. He states that he is not aware of having any significant traumatic experiences in his past. Sleep has been reported as fair. He is vague on specifics of drug use. He notes that he has not been drinking alcohol. He says he does smoke marijuana "once in a while." He had a follow-up with [facility] but stopped going soon after the 2020 admission." Hospital course: Upon admission to the unit patient was initially noted to have fair eye contact and occasionally slow to respond but would respond appropriately. Patient was however directable and agreeable to commence treatment. Patient got along well with other patients on the unit and followed unit protocol. Patient was compliant with the medications and denied any side effects throughout hospital course. Patient was started on trazodone when necessary for insomnia. Patient spoke of his stressors and engaged in therapy both group and individual. Patient was also seen by medical team for history and physical exam. The patient was not started on any antipsychotic medications. Throughout the hospital physician, the patient displayed no significant symptoms of psychosis and did not appear to respond to any internal stimuli. He signed an AMA notice for discharge that was up on 07/02/2022. When evaluated by Dr. Gonsalves, the patient wished to rescind his AMA notice however provided no criteria that would require inpatient psychiatric admission. On the day of discharge, the patient is not reporting any suicidal or homicidal ideation, intention, and/or plan. He reports no auditory or visual hallucinations. He denies any access to firearms or other weapons. He denies any paranoia or other delusions. The patient is requesting further inpatient psychiatric admission primarily for reasons of housing. As the patient no longer met criteria for inpatient psychiatric admission, he was subsequently discharged. He was counseled at length importance of appropriate outpatient follow-up. He was also counseled at length importance of abstaining from all substances including tobacco, alcohol, marijuana, and illicit drugs. Mental status exam: General Appearance: Patient appears to be stated age is alert, pleasant, and cooperative. Patient is in no acute distress and has fair hygiene and grooming Behavior: Patient is calmly seated without any agitated behavior. Speech: Patient's speech is fluent and nonpressured. Mood/Affect: Patient reports their mood is "doing good", affect is congruent and euthymic. Suicidality/Homicidality: Patient denies having any suicidal or homicidal ideation intent or plan. Perceptions: Patient denies any auditory or visual hallucinations. Though content/process: There is no evidence of any delusional thought content and thought process is linear and goal-directed. Memory and concentration: AOX3, grossly intact for the purposes of this session. Can spell "WORLD" backwards correctly. Judgment and insight: Improved with guarded prognosis Impression: Acute psychotic episode Tobacco use disorder Malingering Plan: -Continue with discharge today as patient has improved and stabilized psychiatrically and is not currently an imminent threat to himself and/or others. The patient remain at chronically elevated risk due to his homelessness. -Continue medications: Habitrol patches for nicotine cessation Melatonin for insomnia -Patient was counseled on the need for medication compliance and appropriate follow-up at mental health and also primary care for medical issues. Patient verbalized understanding and agreed. -Social work to arrange for and conduct family meeting to ensure safety upon di scharge and answer any questions/concerns. Social work also to arrange for patients follow up appointments for psychiatric care along with follow up with primary care provider. -Patient counseled on abstaining from recreational drugs and marijuana and alcohol. Was informed/educated on the adverse effects on their physical and mental health. Patient verbally agreed and understood. -Patient was instructed to return to the hospital or seek immediate medical care if their psychiatric or medical symptoms do worsen or reoccur. -Psychoeducation and supportive therapy provided to patient. Risks and benefits of pharmacological treatment versus the risks and benefits of nontreatment weight and discussed. Informed consent discussion held. Common side effects of psychotropics discussed such as, but not limited to headache, GI disturbance, sexual dysfunction, movement disorders, sedation, and orthostatic hypotension. Life threatening and blackbox warnings of prescribed medications also discussed. Potential risks of operating a vehicle or heavy machinery discussed with patient at length. Advised on importance of compliance and a reliable and responsible manner. Patient advised to review FDA consumer labeling of all medications prior to taking. Patient verbalized understanding of potential risks, and agrees with current treatment plan. Patient advised to medically contact physician/emergency personnel if any acute changes in condition occur. Vital Signs Temp 97.8 F 07/02/22 06:56 Pulse 67 07/02/22 06:56 Resp 16 07/02/22 06:56 BP 98/53 07/02/22 06:56 Pulse Ox 95 07/01/22 03:00 FiO2 Laboratory Results WBC 7.6 k/uL (3.8-10.6) 06/27/22 18:04 RBC 5.58 m/uL (4.30-5.90) 06/27/22 18:04 Hgb 17.0 gm/dL (13.0-17.5) 06/27/22 18:04 Hct 47.3 % (39.0-53.0) 06/27/22 18:04 MCV 84.8 fL (80.0-100.0) 06/27/22 18:04 MCH 30.4 pg (25.0-35.0) 06/27/22 18:04 MCHC 35.9 g/dL (31.0-37.0) 06/27/22 18:04 RDW 12.1 % (11.5-15.5) 06/27/22 18:04 Plt Count 353 k/uL (150-450) 06/27/22 18:04 MPV 7.4 06/27/22 18:04 Neutrophils % 61 % 06/27/22 18:04 Lymphocytes % 30 % 06/27/22 18:04 Monocytes % 4 % 06/27/22 18:04 Eosinophils % 2 % 06/27/22 18:04 Basophils % 1 % 06/27/22 18:04 Neutrophils # 4.6 k/uL (1.3-7.7) 06/27/22 18:04 Lymphocytes # 2.3 k/uL (1.0-4.8) 06/27/22 18:04 Monocytes # 0.3 k/uL (0-1.0) 06/27/22 18:04 Eosinophils # 0.2 k/uL (0-0.7) 06/27/22 18:04 Basophils # 0.1 k/uL (0-0.2) 06/27/22 18:04 Sodium 141 mmol/L (137-145) 06/27/22 18:04 Potassium 4.3 mmol/L (3.5-5.1) 06/27/22 18:04 Chloride 106 mmol/L (98-107) 06/27/22 18:04 Carbon Dioxide 29 mmol/L (22-30) 06/27/22 18:04 Anion Gap 6 mmol/L 06/27/22 18:04 BUN 18 mg/dL (9-20) 06/27/22 18:04 Creatinine 0.76 mg/dL (0.66-1.25) 06/27/22 18:04 Est GFR (CKD-EPI)AfAm >90 (>60 ml/min/1.73 sqM) 06/27/22 18:04 Est GFR (CKD-EPI)NonAf >90 (>60 ml/min/1.73 sqM) 06/27/22 18:04 Glucose 90 mg/dL (74-99) 06/27/22 18:[address] Glu mg/dL 95 06/27/22 18:04 Hemoglobin A1c 4.9 % (0.0-6.0) 06/27/22 18:04 Calcium 9.6 mg/dL (8.4-10.2) 06/27/22 18:04 Total Bilirubin 0.6 mg/dL (0.2-1.3) 06/27/22 18:04 AST 26 U/L (17-59) 06/27/22 18:04 ALT 22 U/L (4-49) 06/27/22 18:04 Alkaline Phosphatase 67 U/L (38-126) 06/27/22 18:04 Total Protein 7.2 g/dL (6.3-8.2) 06/27/22 18:04 Albumin 4.5 g/dL (3.5-5.0) 06/27/22 18:04 Triglycerides 86.10 mg/dL (0.00-149.00) 06/27/22 18:04 Cholesterol 154.00 mg/dL (0.00-200.00) 06/27/22 18:04 LDL Cholesterol, Calc 90.0 mg/dL (0.0-131.0) 06/27/22 18:04 VLDL Cholesterol, Calc 17.22 mg/dL (5.00-40.00) 06/27/22 18:04 HDL Cholesterol 46.80 mg/dL (40.00-60.00) 06/27/22 18:04 Cholesterol/HDL Ratio 3.29 Ratio 06/27/22 18:04 TSH 1.540 mIU/L (0.465-4.680) 06/27/22 18:04 Influenza Type A (PCR) Not Detected (Not Detectd) 06/27/22 14:51 Influenza Type B (PCR) Not Detected (Not Detectd) 06/27/22 14:51 RSV (PCR) Not Detected (Not Detectd) 06/27/22 14:51 SARS-CoV-2 (PCR) Not Detected (Not Detectd) 06/27/22 14:51 Allergies Allergy/AdvReac Type Severity Reaction Status Date / Time venom-honey bee Allergy Anaphylaxis Verified 06/27/22 17:14 [bee venom (honey bee)] Patient Condition at Discharge: Stable Plan - Discharge Summary Discharge Rx Participant: No New Discharge Prescriptions: New Nicotine 14Mg/24Hr Patch [Habitrol] 1 patch TRANSDERM DAILY 15 Days patch Melatonin 5 mg PO HS 30 Days tab Discharge Medication List Melatonin 5 mg PO HS 30 Days tab 07/02/22 [Rx] Nicotine 14Mg/24Hr Patch [Habitrol] 1 patch TRANSDERM DAILY 15 Days patch 07/02/22 [Rx] Follow up Appointment(s)/Referral(s): [facility] [NON-STAFF] - 1-2 Days Patient Instructions/Handouts: How to Stop Smoking (DC), Psychotic Disorder (DC) Activity/Diet/Wound Care/Special Instructions: Avoid the use of street drugs and alcohol. Take all prescriptions as prescribed. When you are in need of refills on your medications, please contact your medical provider and/or outpatient psychiatrist to have this done. Please go to scheduled outpatient appointment for aftercare treatment. If symptoms return or become worse, call the crisis line at and/or go to the nearest emergency room for evaluation Discharge Disposition: HOME SELF-CARE
== END 2022-07-02 14:28 | disposition home or self-care (01) | DRG 885 ==
LOC: EC 14:27 → SUPCPDRO 14:27 → 3MHU 15:57
PROVIDERS: ADMIT Psychiatry & Neurology Psychiatry; ATTEND Psychiatry & Neurology Psychiatry
DX: F23 Brief psychotic disorder (principal); R45.851 Suicidal ideations; Z76.5 Malingerer [conscious simulation]; G47.00 Insomnia, unspecified; B34.9 Viral infection, unspecified; Z20.822 Contact with and (suspected) exposure to COVID-19; F90.9 Attention-deficit hyperactivity disorder, unspecified type; T38.0X5A Adverse effect of glucocorticoids and synthetic analogues, initial encounter; Z71.6 Tobacco abuse counseling; X58.XXXA Exposure to other specified factors, initial encounter; Z79.899 Other long term (current) drug therapy; Z91.14 Patient's other noncompliance with medication regimen; Z91.83 Wandering in diseases classified elsewhere; Z91.030 Bee allergy status
CPT/HCPCS: 71046; 80053; 80061; 83036; 84443; 85025; 87636; 94640; 96372; 99284

== ENCOUNTER 2022-09-18 18:30 | Emergency (ER) | payer OTHER ==
[2022-09-18 20:09] VITALS: TEMP 98.1
[2022-09-18] MEDS ORDERED: DEXAMETHASONE SOD PHOSPHATE 10 MG/ML 1 ML VIAL IVP STA (20:29)
[2022-09-18] MEDS ORDERED: SODIUM CHLORIDE 0.9% 1,000 ML IV STA (20:29)
[2022-09-18] MEDS ORDERED: diphenhydrAMINE 50 MG/ML 1 ML VIAL IVP STA (20:29)
--- NOTE | 2022-09-18 20:33 | ED ---
General Adult HPI - General Chief complaint: Psychiatric Symptoms Stated complaint: Rt side face/eye pressure/pain Time Seen by Provider: 09/18/22 19:56 Source: patient, RN notes reviewed, old records reviewed Mode of arrival: ambulatory Limitations: no limitations - History of Present Illness Initial comments: 21-year-old male presents to the emergency room with complaints of headache behind his right eye for 3 days. Denies any history of headaches. Denies any trauma. No fevers. He also states that he is feeling hopeless and suicidal with a plan to jump off the bridge. Denies any alcohol or drug use. States does not take any medicine on a daily basis. -: days(s) (3) Location: head, right (headache behind right eye) Severity scale (1-10): 9 Quality: aching Consistency: constant Improves with: none Associated Symptoms: other (hopelessness and suicidal) Treatments Prior to Arrival: none - Related Data Home Medications Medication Instructions Recorded Confirmed No Known Home Medications 09/18/22 09/18/22 Allergies Allergy/AdvReac Type Severity Reaction Status Date / Time venom-honey bee Allergy Anaphylaxis Verified 09/18/22 22:12 [bee venom (honey bee)] Review of Systems ROS Statement: Those systems with pertinent positive or pertinent negative responses have been documented in the HPI. ROS Other: All systems not noted in ROS Statement are negative. Past Medical History Past Medical History: No Reported History Additional Past Medical History / Comment(s): ADHD History of Any Multi-Drug Resistant Organisms: None Reported Past Surgical History: Ear Surgery, Orthopedic Surgery Additional Past Surgical History / Comment(s): 2 R meniscus repairs tubes in ears as child. Past Anesthesia/Blood Transfusion Reactions: No Reported Reaction Past Psychological History: ADD/ADHD Smoking Status: Former smoker Past Alcohol Use History: Rare Past Drug Use History: Marijuana - Past Family History Father Family Medical History: Unable to Obtain Mother Family Medical History: Cancer General Exam Limitations: no limitations General appearance: alert, in no apparent distress Head exam: Present: atraumatic, normocephalic, normal inspection Eye exam: Present: PERRL, EOMI. Absent: scleral icterus, conjunctival injection, periorbital swelling, periorbital tenderness Pupils: Present: normal accommodation ENT exam: Present: normal exam, normal oropharynx, mucous membranes moist Neck exam: Present: full ROM. Absent: tenderness, meningismus, lymphadenopathy Respiratory exam: Present: normal lung sounds bilaterally. Absent: respiratory distress, accessory muscle use Cardiovascular Exam: Present: regular rate GI/Abdominal exam: Present: soft. Absent: distended, tenderness, rigid Neurological exam: Present: alert, oriented X3, normal gait Psychiatric exam: Present: depressed, suicidal ideation. Absent: agitated Skin exam: Present: warm, dry, normal color. Absent: cyanosis, diaphoretic, petechiae, pallor Course Vital Signs 09/18/22 09/18/22 09/18/22 19:51 20:06 22:34 Temperature 98.4 F 98.1 F Pulse Rate 81 80 70 Respiratory 20 16 18 Rate Blood Pressure 124/71 124/82 110/62 O2 Sat by Pulse 99 98 98 Oximetry Medical Decision Making - Medical Decision Making Patient presents with right frontal headache today and suicidal ideation. Denies any trauma. No visual changes. No fevers. No pain along the temporal artery. No pain with eye movement Vital signs are stable. Patient has no focal neurological deficits. CBC and electrolytes are unremarkable. He was given IV fluids, Decadron, Benadryl and Tylenol for his headache. EPS nurse familiar with patient and did speak with patient regarding his hopelessness and suicidal ideation. He was willing to contract for safety. Given a custodial information due to his homelessness and directed to follow up with community mental health. Patient is agreeable to this plan of care. Case was discussed with Dr. Boogie. Was pt. sent in by a medical professional or institution (, PA, MANAGER CLINICAL, urgent care, hospital, or usp...) When possible be specific @ -No Did you speak to anyone other than the patient for history (EMS, parent, family, police, friend...)? What history was obtained from this source @ -No Did you review nursing and triage notes (agree or disagree)? Why? @ -I reviewed and agree with nursing and triage notes Were old charts reviewed (outside hosp., previous admission, EMS record, old EKG, old radiological studies, urgent care reports/EKG's, usp records)? Report findings @ -Previous mental health admissions, ER visits Differential Diagnosis (chest pain, altered mental status, abdominal pain women, abdominal pain men, vaginal bleeding, weakness, fever, dyspnea, syncope, headache, dizziness, GI bleed, back pain, seizure, CVA, palpatations, mental health, musculoskeletal)? @ -Differential Headache: Migraine, tension, cluster, carbon monoxide, central venous thrombosis, pension karma temporal arteritis, acute closure glaucoma, intercranial hemorrhage, mastoiditis, sinusitis, head injury, this is not meant to be an all-inclusive list. Differential Mental Health Depression, anxiety, bipolar, psychosis, schizophrenia, borderline personality, situational depression, adjustment disorder, behavioral disorder, brain tumor, malingering, substance abuse, encephalopathy, medication reaction, dementia, hypothyroidism, degenerative neurologic disorder, lupus.... This is not meant to be all-inclusive list EKG interpreted by me (3pts min.). @ -n/a X-rays interpreted by me (1pt min.). @ -None done CT interpreted by me (1pt min.). @ -None done U/S interpreted by me (1pt. min.). @ -None done What testing was considered but not performed or refused? (CT, X-rays, U/S, labs)? Why? @ -None What meds were considered but not given or refused? Why? @ -None Did you discuss the management of the patient with other professionals (professionals i.e. , PA, MANAGER CLINICAL, lab, RT, psych nurse, social science instructor, pipe bowl paint trimmer, teacher, chemical instrumentation officer, caseworker protective services)? Give summary @ -No Was smoking cessation discussed for >3mins.? @ -No Was critical care preformed (if so, how long)? @ -No Were there social determinants of health that impacted care today? How? (Homelessness, low income, unemployed, alcoholism, drug addiction, transportation, low edu. Level, literacy, decrease access to med. care, intermediate, rehab)? @ -Homelessness, depression Was there de-escalation of care discussed even if they declined (Discuss DNR or withdrawal of care, Hospice)? DNR status @ -No What co-morbidities impacted this encounter? (DM, HTN, Smoking, COPD, CAD, Cancer, CVA, ARF, Chemo, Hep., AIDS, mental health diagnosis, sleep apnea, morbid obesity)? @ -ADHD, depression Was patient admitted / discharged? Hospital course, mention meds given and route, prescriptions, significant lab abnormalities, going to OR and other pertinent info. @ -Discharged Undiagnosed new problem with uncertain prognosis? @ -No Drug Therapy requiring intensive monitoring for toxicity (Heparin, Nitro, Insulin, Cardizem)? @ -No Were any procedures done? @ -No Diagnosis/symptom? @ -Depression, headache Acute, or Chronic, or Acute on Chronic? @ -Acute headache and acute on chronic depression Uncomplicated (without systemic symptoms) or Complicated (systemic symptoms)? @ -Uncomplicated Side effects of treatment? @ -No Exacerbation, Progression, or Severe Exacerbation? @ -No Poses a threat to life or bodily function? How? (Chest pain, [place], [place], pneumonia, PE, COPD, DKA, ARF, appy, cholecystitis, CVA, Diverticulitis, Homicidal, Suicidal, threat to staff... and all critical care pts) @ -No - Lab Data Result diagrams: 09/18/22 20:46 09/18/22 20:46 Lab Results 09/18/22 09/18/22 Range/Units 20:46 20:46 WBC 7.1 (3.8-10.6) k/uL RBC 5.19 (4.30-5.90) m/uL Hgb 15.3 (13.0-17.5) gm/dL Hct 43.6 (39.0-53.0) % MCV 83.9 (80.0-100.0) fL MCH 29.4 (25.0-35.0) pg MCHC 35.1 (31.0-37.0) g/dL RDW 12.6 (11.5-15.5) % Plt Count 299 (150-450) k/uL MPV 6.7 Neutrophils % 55 % Lymphocytes % 32 % Monocytes % 6 % Eosinophils % 4 % Basophils % 1 % Neutrophils # 3.9 (1.3-7.7) k/uL Lymphocytes # 2.3 (1.0-4.8) k/uL Monocytes # 0.5 (0-1.0) k/uL Eosinophils # 0.3 (0-0.7) k/uL Basophils # 0.1 (0-0.2) k/uL Hyperchromasia Slight Sodium 139 (137-145) mmol/L Potassium 3.9 (3.5-5.1) mmol/L Chloride 104 (98-107) mmol/L Carbon Dioxide 28 (22-30) mmol/L Anion Gap 7 mmol/L BUN 22 H (9-20) mg/dL Creatinine 0.76 (0.66-1.25) mg/dL Est GFR (CKD-EPI)AfAm >90 (>60 ml/min/1.73 sqM) Est GFR (CKD-EPI)NonAf >90 (>60 ml/min/1.73 sqM) Glucose 104 H (74-99) mg/dL Calcium 9.0 (8.4-10.2) mg/dL Total Bilirubin 0.6 (0.2-1.3) mg/dL AST 20 (17-59) U/L ALT 18 (4-49) U/L Alkaline Phosphatase 85 (38-126) U/L Total Protein 6.8 (6.3-8.2) g/dL Albumin 4.2 (3.5-5.0) g/dL Disposition Clinical Impression: Depression, Homelessness Disposition: HOME SELF-CARE Condition: Good Instructions (If sedation given, give patient instructions): Depression (ED) Additional Instructions: Follow-up with the primary care doctor and [facility] tomorrow. Go to the custodial recommended by psychiatric services today. Return to the emergency room with any new or concerning symptoms. Is patient prescribed a controlled substance at d/c from ED?: No Referrals: Amrit Blum MD [Primary Care Provider] - 1-2 days [facility] [NON-STAFF] - 1-2 days Time of Disposition: 22:17
[2022-09-18 20:58] LABS: Basophils # (A) 0.1 k/uL (0-0.2); Basophils % (A) 1 %; Eosinophils # (A) 0.3 k/uL (0-0.7); Eosinophils % (A) 4 %; HCT 43.6 % (39.0-53.0); HGB 15.3 gm/dL (13.0-17.5); Hyperchromasia Slight; Lymphocytes # (A) 2.3 k/uL (1.0-4.8); Lymphocytes % (A) 32 %; MCH 29.4 pg (25.0-35.0); MCHC 35.1 g/dL (31.0-37.0); MCV 83.9 fL (80.0-100.0); Mean Platelet Volume 6.7; Monocytes # (A) 0.5 k/uL (0-1.0); Monocytes % (A) 6 %; Neutrophils # (A) 3.9 k/uL (1.3-7.7); Neutrophils % (A) 55 %; Platelet Count 299 k/uL (150-450); RBC 5.19 m/uL (4.30-5.90); RDW 12.6 % (11.5-15.5); WBC 7.1 k/uL (3.8-10.6)
[2022-09-18 21:13] LABS: ALT 18 U/L (4-49); AST 20 U/L (17-59); African American GFR (CKD) >90 (>60 ml/min/1.73 sqM); Albumin 4.2 g/dL (3.5-5.0); Alkaline Phosphatase 85 U/L (38-126); Anion Gap 7 mmol/L; Blood Urea Nitrogen 22 mg/dL (9-20); Carbon Dioxide 28 mmol/L (22-30); Chloride 104 mmol/L (98-107); Glucose 104 mg/dL (74-99); Non-African American GFR(CKD) >90 (>60 ml/min/1.73 sqM); Potassium 3.9 mmol/L (3.5-5.1); Sodium 139 mmol/L (137-145); Total Bilirubin 0.6 mg/dL (0.2-1.3); Total Protein 6.8 g/dL (6.3-8.2)
[2022-09-18 22:36] VITALS: BP 110/62; PULSE 70; RESP 18
[2022-09-18] MEDS ORDERED: ACETAMINOPHEN TAB 325 MG TAB PO STA (23:09)
== END 2022-09-18 23:16 | disposition home or self-care (01) ==
LOC: EC 18:30
DX: F32.A Depression, unspecified (principal); F12.90 Cannabis use, unspecified, uncomplicated; Z59.00 Homelessness unspecified; Z87.891 Personal history of nicotine dependence; Z91.030 Bee allergy status
CPT/HCPCS: 82075; 36415; 80053; 85025; 99285; 96374; 96375; 96361; J1200; J1100

== ENCOUNTER 2022-09-21 12:40 | Inpatient (IN) | payer MEDICAID, OTHER ==
--- NOTE | 2022-09-21 13:14 | ED ---
General Adult HPI - General Chief complaint: Psychiatric Symptoms Stated complaint: mental health Time Seen by Provider: 09/21/22 13:05 Source: patient, RN notes reviewed, old records reviewed Mode of arrival: ambulatory Limitations: no limitations - History of Present Illness Initial comments: 21-year-old male history of schizophrenia presents with auditory hallucination. Patient does report some suicidal ideation without suicidal plan. He is currently homeless. He states that his medication was adjusted on a recent visit but this is not working. no Physical complaints. - Related Data Home Medications Medication Instructions Recorded Confirmed No Known Home Medications 09/18/22 09/21/22 Allergies Allergy/AdvReac Type Severity Reaction Status Date / Time venom-honey bee Allergy Anaphylaxis Verified 09/21/22 14:23 [bee venom (honey bee)] Review of Systems ROS Statement: Those systems with pertinent positive or pertinent negative responses have been documented in the HPI. ROS Other: All systems not noted in ROS Statement are negative. Past Medical History Past Medical History: No Reported History Additional Past Medical History / Comment(s): ADHD History of Any Multi-Drug Resistant Organisms: None Reported Past Surgical History: Ear Surgery, Orthopedic Surgery Additional Past Surgical History / Comment(s): 2 R meniscus repairs tubes in ears as child. Past Anesthesia/Blood Transfusion Reactions: No Reported Reaction Past Psychological History: ADD/ADHD Smoking Status: Former smoker Past Alcohol Use History: Rare Past Drug Use History: Marijuana - Past Family History Father Family Medical History: Unable to Obtain Mother Family Medical History: Cancer General Exam Limitations: no limitations General appearance: alert, in no apparent distress Head exam: Present: atraumatic, normocephalic Eye exam: Present: normal appearance, PERRL ENT exam: Present: normal exam Neck exam: Present: normal inspection. Absent: tenderness, meningismus Respiratory exam: Present: normal lung sounds bilaterally. Absent: respiratory distress, wheezes Cardiovascular Exam: Present: regular rate, normal rhythm GI/Abdominal exam: Present: soft. Absent: distended, tenderness Extremities exam: Present: normal inspection, normal capillary refill. Absent: pedal edema Neurological exam: Present: alert, oriented X3 Psychiatric exam: Present: suicidal ideation. Absent: agitated Skin exam: Present: warm, dry, intact Course Vital Signs 09/21/22 13:02 Temperature 98.8 F Pulse Rate 89 Respiratory 18 Rate Blood Pressure 113/59 O2 Sat by Pulse 97 Oximetry - Reevaluation(s) Reevaluation #1: 09/21/22 13:14 Cleared for EPS Medical Decision Making - Medical Decision Making Was pt. sent in by a medical professional or institution (, JAMIR, BEHAVIORAL GENETICIST, urgent care, hospital, or snf...) When possible be specific @ -No Did you speak to anyone other than the patient for history (EMS, parent, family, police, friend...)? What history was obtained from this source @ -No Did you review nursing and triage notes (agree or disagree)? Why? @ -I reviewed and agree with nursing and triage notes Were old charts reviewed (outside hosp., previous admission, EMS record, old EKG, old radiological studies, urgent care reports/EKG's, snf records)? Report findings @ -Reviewed previous mental health evaluations Differential Diagnosis (chest pain, altered mental status, abdominal pain women, abdominal pain men, vaginal bleeding, weakness, fever, dyspnea, syncope, headache, dizziness, GI bleed, back pain, seizure, CVA, palpatations, mental health, musculoskeletal)? @ -Differential Mental Health Depression, anxiety, bipolar, psychosis, schizophrenia, borderline personality, situational depression, adjustment disorder, behavioral disorder, brain tumor, malingering, substance abuse, encephalopathy, medication reaction, dementia, hypothyroidism, degenerative neurologic disorder, lupus.... This is not meant to be all-inclusive list EKG interpreted by me (3pts min.). @ -As above X-rays interpreted by me (1pt min.). @ -None done CT interpreted by me (1pt min.). @ -None done U/S interpreted by me (1pt. min.). @ -None done What testing was considered but not performed or refused? (CT, X-rays, U/S, labs)? Why? @ -None What meds were considered but not given or refused? Why? @ -None Did you discuss the management of the patient with other professionals (professionals i.e. , JAMIR, BEHAVIORAL GENETICIST, lab, RT, psych nurse, social media executive, vb net programmer, teacher, sba business development officer, therapeutic case manager)? Give summary @ -No Was smoking cessation discussed for >3mins.? @ -No Was critical care preformed (if so, how long)? @ -No Were there social determinants of health that impacted care today? How? (Homelessness, low income, unemployed, alcoholism, drug addiction, transportation, low edu. Level, literacy, decrease access to med. care, snf, rehab)? @ -Homelessness Was there de-escalation of care discussed even if they declined (Discuss DNR or withdrawal of care, Hospice)? DNR status @ -No What co-morbidities impacted this encounter? (DM, HTN, Smoking, COPD, CAD, Cancer, CVA, ARF, Chemo, Hep., AIDS, mental health diagnosis, sleep apnea, morbid obesity)? @ - Was patient admitted / discharged? Hospital course, mention meds given and route, prescriptions, significant lab abnormalities, going to OR and other pertinent info. @ -[21-year-old male presenting to the emergency department for mental health evaluation. Patient had been medically cleared and evaluated by EPS. He will be admitted to this institution for further psychiatric evaluation treatment Undiagnosed new problem with uncertain prognosis? @ -No Drug Therapy requiring intensive monitoring for toxicity (Heparin, Nitro, Insulin, Cardizem)? @ -No Were any procedures done? @ -No Diagnosis/symptom? @ -Acute psychosis Acute, or Chronic, or Acute on Chronic? @ -Acute Uncomplicated (without systemic symptoms) or Complicated (systemic symptoms)? @ -Complicated Side effects of treatment? @ -No Exacerbation, Progression, or Severe Exacerbation? @ -No Poses a threat to life or bodily function? How? (Chest pain, USA, PA, pneumonia, PE, COPD, DKA, ARF, appy, cholecystitis, CVA, Diverticulitis, Homicidal, Suicidal, threat to staff... and all critical care pts) @ -No - Lab Data Lab Results 09/21/22 09/21/22 Range/Units 15:01 15:59 Urine Opiates Screen Not Detected (NotDetected) Ur Oxycodone Screen Not Detected (NotDetected) Urine Methadone Screen Not Detected (NotDetected) Ur Propoxyphene Screen Not Detected (NotDetected) Ur Barbiturates Screen Not Detected (NotDetected) U Tricyclic Antidepress Not Detected (NotDetected) Ur Phencyclidine Scrn Not Detected (NotDetected) Ur Amphetamines Screen Not Detected (NotDetected) U Methamphetamines Scrn Not Detected (NotDetected) U Benzodiazepines Scrn Not Detected (NotDetected) Urine Cocaine Screen Not Detected (NotDetected) U Marijuana (THC) Screen Detected H (NotDetected) Coronavirus (PCR) Not Detected (Not Detectd) Disposition Clinical Impression: Acute psychosis Disposition: ADMITTED IP TO THIS HOSP Condition: Stable Is patient prescribed a controlled substance at d/c from ED?: No Referrals: Amrit Blum MD [REFERRING] - 1-2 days Time of Disposition: 16:54
[2022-09-21 16:45] LABS: Amphetamine Screen,Urine Not Detected (NotDetected); Barbiturate Screen,Urine Not Detected (NotDetected); Benzodiazepines Screen,Urine Not Detected (NotDetected); Cocaine Screen,Urine Not Detected (NotDetected); Methadone Screen, Urine Not Detected (NotDetected); Opiate Screen,Urine Not Detected (NotDetected); Oxycodone Screen, Urine Not Detected (NotDetected); Phencyclidine Screen,Urine Not Detected (NotDetected); Tricyclic Antidepressant,Urine Not Detected (NotDetected); Urn Cannabinoid Scrn Detected (NotDetected)
[2022-09-21] MEDS ORDERED: HALOPERIDOL LACTATE 5 MG/ML 1 ML VIAL IM PRN (17:03)
[2022-09-21] MEDS ORDERED: MAGNESIUM HYDROXIDE 2,400 MG/10 ML CUP PO PRN (17:03)
[2022-09-21] MEDS ORDERED: LORazepam 1 MG TAB PO PRN (17:03)
[2022-09-21] MEDS ORDERED: LORazepam 2 MG/ML INJ IM PRN (17:09)
[2022-09-21] MEDS ORDERED: haloperidoL 5 MG TAB PO PRN (17:10)
[2022-09-21] MEDS: ACETAMINOPHEN TAB 325 MG TAB PO PRN (19:17)
[2022-09-21] MEDS: MAG HYDROX/AL HYDROX/SIMETH 30 ML CUP PO PRN (19:18)
[2022-09-21] MEDS: traZODone HCL 50 MG TAB PO SCH (20:02)
[2022-09-21] MEDS: PALIPERIDONE 6 MG TAB.ER.24 PO SCH (20:02)
--- NOTE | 2022-09-22 03:02 | P.MDCNMH ---
History of Present Illness H&P Date: 09/21/22 Chief Complaint: medical evaluation 21 year old male with schizophrenia reportedly presented for suicidal ideation and hallucination , patient seems to be zoned out and unable to provide any meaningful history at this time . however, he denies any medical concerns at this time. and only report a mild cough of 2 days duration with no associated trouble breathing, runny nose, headache, body aches , or hemoptysis , however, he does report some pleuritic chest pain with coughing that lasts only 1-2 seconds with peak of his coughing right sided denies tobacco smoking, illicit drugs or alcohol , patient is homeless Review of Systems Pertinent positives as noted in HPI. All other systems were reviewed and are negative Past Medical History Past Medical History: No Reported History Additional Past Medical History / Comment(s): ADHD History of Any Multi-Drug Resistant Organisms: None Reported Past Surgical History: Ear Surgery, Orthopedic Surgery Additional Past Surgical History / Comment(s): 2 R meniscus repairs tubes in ears as child. Past Anesthesia/Blood Transfusion Reactions: No Reported Reaction Past Psychological History: ADD/ADHD Smoking Status: Former smoker Past Alcohol Use History: Rare Past Drug Use History: Marijuana - Past Family History Father Family Medical History: Unable to Obtain Mother Family Medical History: Cancer Medications and Allergies Home Medications Medication Instructions Recorded Confirmed Type No Known Home Medications 09/18/22 09/21/22 History Allergies Allergy/AdvReac Type Severity Reaction Status Date / Time venom-honey bee Allergy Anaphylaxis Verified 09/21/22 14:23 [bee venom (honey bee)] Physical Exam Vitals: Vital Signs Temp Pulse Pulse Resp BP BP Pulse Ox 09/21/22 17:01 98.2 F 79 16 118/63 99 09/21/22 13:02 98.8 F 89 18 113/59 97 Intake and Output 09/21/22 09/21/22 09/22/22 14:59 22:59 06:59 Other: Weight 71.214 kg 68.7 kg Constitutional: No acute distress, Eyes: Anicteric sclerae, moist conjunctiva, Pupils equal round reactive to light ENMT: NC/AT Oropharynx clear, no erythema, or exudates Neck: Supple, no masses, or JVD No carotid bruits No thyromegaly Lungs: Clear to auscultation Clear to percussion Normal respiratory effort, no accessory muscle use Cardiovascular: Heart regular in rate and rhythm, No murmurs, gallops, or rubs No peripheral edema Abdominal: Soft Nontender, no guarding, rebound or rigidity Abdomen moving with respiration Normoactive bowel sounds Skin: Normal temperature, tone, texture, turgor Extremities: No digital cyanosis No clubbing Pedal pulses intact and symmetrical Radial pulses intact and symmetrical No calf tenderness Psychiatric: Alert and oriented to person, place and time Neuro Muscles Strength 5/5 in all 4 extremities Sensation to light touch grossly present throughout Cranial nerves II-XII grossly intact Cranial Nerve Examination - Cranial Nerves Cranial Nerve II- Optic: Intact Cranial Nerve III- Oculomotor: Intact Cranial Nerve IV- Trochlear: Intact Cranial Nerve V- Trigeminal: Intact Cranial Nerve - Abducens: Intact Cranial Nerve VII- Facial: Intact Cranial Nerve VIII- Auditory: Intact Cranial Nerve IX- Glossopharyngeal: Intact Cranial Nerve X- Vagus: Intact Cranial Nerve XI- Accessory: Intact Cranial Nerve XII- Hypoglossal: Intact Results Labs: Abnormal Lab Results - Last 24 Hours (Table) 09/21/22 Range/Units 15:59 U Marijuana (THC) Screen Detected H (NotDetected) Assessment and Plan Assessment: suicidal ideation schizophrenia ' management per psych coughing , suspect acute viral bronchitis check CXR covid negative check CBC cough drops PRN urine drug screen positive for marijunana , patient denies no blood work available at this time thank you for this consultation
[2022-09-22] MEDS: MAG HYDROX/AL HYDROX/SIMETH 30 ML CUP PO PRN ×2 (10:10→21:58)
[2022-09-22] MEDS ORDERED: hydrOXYzine pamoate 25 MG CAP PO PRN (10:15)
[2022-09-22 11:27] LABS: Basophils % (A) 1 %; Eosinophils # (A) 0.3 k/uL (0-0.7); Eosinophils % (A) 4 %; HCT 45.6 % (39.0-53.0); HGB 16.2 gm/dL (13.0-17.5); Lymphocytes # (A) 1.3 k/uL (1.0-4.8); Lymphocytes % (A) 18 %; MCH 30.1 pg (25.0-35.0); MCHC 35.6 g/dL (31.0-37.0); MCV 84.5 fL (80.0-100.0); Mean Platelet Volume 6.7; Monocytes # (A) 0.5 k/uL (0-1.0); Monocytes % (A) 8 %; Neutrophils # (A) 4.6 k/uL (1.3-7.7); Neutrophils % (A) 68 %; Platelet Count 289 k/uL (150-450); RDW 12.7 % (11.5-15.5); WBC 6.8 k/uL (3.8-10.6)
[2022-09-22 11:48] LABS: African American GFR (CKD) >90 (>60 ml/min/1.73 sqM); Anion Gap 9 mmol/L; Blood Urea Nitrogen 14 mg/dL (9-20); Calcium 9.5 mg/dL (8.4-10.2); Carbon Dioxide 27 mmol/L (22-30); Chloride 104 mmol/L (98-107); Glucose 81 mg/dL (74-99); Non-African American GFR(CKD) >90 (>60 ml/min/1.73 sqM); Potassium 4.4 mmol/L (3.5-5.1); Sodium 140 mmol/L (137-145)
--- NOTE | 2022-09-22 13:34 | P.HP ---
Psychiatric H&P - . H&P Date: 09/22/22 History & Physical: Allergies Allergy/AdvReac Type Severity Reaction Status Date / Time venom-honey bee Allergy Anaphylaxis Verified 09/21/22 14:23 [bee venom (honey bee)] Vital Signs Temp 98.0 F 09/22/22 10:28 Pulse 80 09/22/22 10:28 Resp 16 09/22/22 10:28 BP 99/61 09/22/22 10:28 Pulse Ox 98 09/22/22 10:28 FiO2 Intake & Output 09/21/22 09/22/22 09/22/22 18:59 06:59 18:59 Weight 68.7 kg Laboratory Last Values WBC 6.8 k/uL (3.8-10.6) 09/22/22 10:47 RBC 5.40 m/uL (4.30-5.90) 09/22/22 10:47 Hgb 16.2 gm/dL (13.0-17.5) 09/22/22 10:47 Hct 45.6 % (39.0-53.0) 09/22/22 10:47 MCV 84.5 fL (80.0-100.0) 09/22/22 10:47 MCH 30.1 pg (25.0-35.0) 09/22/22 10:47 MCHC 35.6 g/dL (31.0-37.0) 09/22/22 10:47 RDW 12.7 % (11.5-15.5) 09/22/22 10:47 Plt Count 289 k/uL (150-450) 09/22/22 10:47 MPV 6.7 09/22/22 10:47 Neutrophils % 68 % 09/22/22 10:47 Lymphocytes % 18 % 09/22/22 10:47 Monocytes % 8 % 09/22/22 10:47 Eosinophils % 4 % 09/22/22 10:47 Basophils % 1 % 09/22/22 10:47 Neutrophils # 4.6 k/uL (1.3-7.7) 09/22/22 10:47 Lymphocytes # 1.3 k/uL (1.0-4.8) 09/22/22 10:47 Monocytes # 0.5 k/uL (0-1.0) 09/22/22 10:47 Eosinophils # 0.3 k/uL (0-0.7) 09/22/22 10:47 Basophils # 0.0 k/uL (0-0.2) 09/22/22 10:47 Sodium 140 mmol/L (137-145) 09/22/22 10:47 Potassium 4.4 mmol/L (3.5-5.1) 09/22/22 10:47 Chloride 104 mmol/L (98-107) 09/22/22 10:47 Carbon Dioxide 27 mmol/L (22-30) 09/22/22 10:47 Anion Gap 9 mmol/L 09/22/22 10:47 BUN 14 mg/dL (9-20) 09/22/22 10:47 Creatinine 0.83 mg/dL (0.66-1.25) 09/22/22 10:47 Est GFR (CKD-EPI)AfAm >90 (>60 ml/min/1.73 sqM) 09/22/22 10:47 Est GFR (CKD-EPI)NonAf >90 (>60 ml/min/1.73 sqM) 09/22/22 10:47 Glucose 81 mg/dL (74-99) 09/22/22 10:47 Calcium 9.5 mg/dL (8.4-10.2) 09/22/22 10:47 TSH 1.120 mIU/L (0.465-4.680) 09/22/22 10:47 Urine Opiates Screen Not Detected (NotDetected) 09/21/22 15:59 Ur Oxycodone Screen Not Detected (NotDetected) 09/21/22 15:59 Urine Methadone Screen Not Detected (NotDetected) 09/21/22 15:59 Ur Propoxyphene Screen Not Detected (NotDetected) 09/21/22 15:59 Ur Barbiturates Screen Not Detected (NotDetected) 09/21/22 15:59 U Tricyclic Antidepress Not Detected (NotDetected) 09/21/22 15:59 Ur Phencyclidine Scrn Not Detected (NotDetected) 09/21/22 15:59 Ur Amphetamines Screen Not Detected (NotDetected) 09/21/22 15:59 U Methamphetamines Scrn Not Detected (NotDetected) 09/21/22 15:59 U Benzodiazepines Scrn Not Detected (NotDetected) 09/21/22 15:59 Urine Cocaine Screen Not Detected (NotDetected) 09/21/22 15:59 U Marijuana (THC) Screen Detected (NotDetected) H 09/21/22 15:59 Coronavirus (PCR) Not Detected (Not Detectd) 09/21/22 15:01 09/22/22 13:34 IDENTIFYING DATA: Patient is a single, unemployed, homeless 21-year-old male with significant history of methamphetamine abuse who presented to our hospital on 09/21/2021, with a chief complaint of suicidal ideation. HPI: Patient presented to the hospital on 09/21/2022 complaining of suicidal ideation with a plan to jump into the cornelius. The patient reports that his family has been disappointed in him. He reports that he had a full ride to go to college however gave it up for his significant other. He reports that his significant other who eventually cheated on him and that they're no longer together. He has been reporting auditory hallucinations commanding him to kill himself. He signed himself voluntarily to the psychiatric unit. The patient reports that his mood has been significantly declining over the past few weeks. He was most recently on our psychiatric unit from 09/04/2022 to 09/08/2022. During that admission, the patient was presenting with visual hallucinations he was discharge on a regimen of Invega and trazodone. Patient reports that he was not adherent with his medications or his outpatient follow- up. He reports feeling hopeless and helpless stating that he has no place to go to. He reports that he has no direction in life. He is vehemently denying any substance abuse. He reports that he occasionally uses marijuana however is denying any current methamphetamine use. In regards to psychotic symptoms, the patient reports that he has been experiencing auditory hallucinations. He reports that he hears a voice which she does not recognize tell him to go kill himself. He describes this voice as being inside his head. He reports that it has decreased in severity since restarting his Invega last night. In regards to mood symptoms, he endorses suicidal ideation, low mood, poor sleep, poor hygiene and grooming, and poor appetite. He reports no symptoms of guy or hypomania. He denies any grandiosity, mood lability, or increased goal directed activity. He denies any excessive energy. He signed himself voluntarily onto the psychiatric unit. PAST PSYCHIATRIC HISTORY: Patient has a history of substance induced psychosis. He is also chronically homeless and there is concern for secondary gain. He was last discharged on a regimen of invega after being admitted for 3 days earlier this month. He has had 3 prior psychiatric admissions to this unit. Patient denies any psychiatric outpatient follow-up. Patient denies any history of suicide attempts in the past. PMH: Past Medical History: No Reported History Additional Past Medical History / Comment(s): ADHD History of Any Multi-Drug Resistant Organisms: None Reported Past Surgical History: Ear Surgery, Orthopedic Surgery Additional Past Surgical History / Comment(s): 2 R meniscus repairs tubes in ears as child. Past Anesthesia/Blood Transfusion Reactions: No Reported Reaction Past Psychological History: ADD/ADHD Smoking Status: Former smoker Past Alcohol Use History: Rare Past Drug Use History: Marijuana ALLERGIES: Venom-honey bee CHEMICAL DEPENDENCY HISTORY: Patient smokes tobacco daily. He reports no alcohol use. He admits to frequent marijuana use. He denies any methamphetamine use for "months." FAMILY PSYCHIATRIC/SUBSTANCE USE HISTORY: No reported history. SOCIAL HISTORY: Patient was born and raised in [facility]. He states that he is single, he is homeless. He has no kids. He is currently unemployed. He claims that he he was released recently released from care home after spending about 30 days in there for driving without a license and released in late 2022. MENTAL STATUS EXAM: General Appearance: Patient appears to be stated age is alert, directable, and attempts to cooperate. Patient appears to have poor hygiene and grooming. Appears disheveled. Behavior: Patient is seated without any agitated behavior. Eye contact is appropriate. Speech: Patient's speech is fluent and nonpressured. Mood/Affect: Patient reports their mood is depressed, affect is congruent and constricted. Suicidality/Homicidality: Patient denies having any homicidal ideation intent or plan. Patient endorses suicidal ideation. No plan or intention at this time. Perceptions: Patient denies any visual hallucinations but reports auditory hallucinations which are improving. Though content/process: There is no evidence of any delusional thought content and thought process is linear and goal-directed. Memory and concentration: AOX3, grossly intact for the purposes of this session. Can spell "WORLD" backwards Judgment and insight: poor STRENGTHS/WEAKNESSES: Strength is that the patient is resourceful. Weakness is substance abuse and nonadherence with treatment. INTELLECT: average IMPRESSIONS: Major Depressive Disorder, recurrent, severe with psychotic features Cannabis use disorder Methamphetamine use disorder, in early remission Nicotine Dependence Homelessness PLAN: -Patient is admitted under voluntary status to [facility] for stabilization of psych iatric symptoms and safety. Patient signed adult voluntary form and medication consent and is placed in patient's chart. -Medications : invega 6 mg at bedtime for psychosis Trazodone 50 mg at bedtime for insomnia -Visaril and Haldol PRN for agitation/aggression -Patient was counselled on substance abuse and desired to cut back on use -Patient was informed of the risks, benefits and side effects of the medication and patient verbally consented to taking the medications. Patient signed med consent form and was placed in chart. -Internal Medicine consult to perform medical evaluation and physical. -NRT - nicotine patch -SW on board for discharge planning. Encourage patient to participate in groups to work on coping skills. 09/22/22 13:34
[2022-09-22] MEDS: BENZONATATE 100 MG CAP PO PRN (17:36)
[2022-09-22] MEDS: traZODone HCL 50 MG TAB PO SCH (20:43)
[2022-09-22] MEDS: PALIPERIDONE 6 MG TAB.ER.24 PO SCH (20:43)
[2022-09-22 23:31] LABS: Chol/HDL Ratio 4.19 Ratio; LDL Cholesterol,Calculated 99.1 mg/dL (0.0-131.0)
[2022-09-23] MEDS: ACETAMINOPHEN TAB 325 MG TAB PO PRN (08:10)
[2022-09-23] MEDS: MAG HYDROX/AL HYDROX/SIMETH 30 ML CUP PO PRN ×2 (08:10→16:26)
[2022-09-23] MEDS: BENZONATATE 100 MG CAP PO PRN (09:04)
--- NOTE | 2022-09-23 11:22 | P.PN ---
Progress Note - Text Progress Note Date: 09/23/22 Interval History: Patient was seen resting in bed and was directable and agreeable to speak with bid writer in his room. Currently, the patient is not reporting any suicidal or homicidal ideation, intention, and/or plan. He is not reporting any auditory or visual hallucinations. He denies any paranoia or other delusions. The patient expresses that his only concern at this time is a "stuffy nose." He has been adherent with his medication is not endorsing any significant side effect. He reports no issues regarding sleep or his appetite. Mental Status Exam: General Appearance: Patient appears to be stated age is alert, directable, and cooperative. Behavior: Patient is calmly lying down in bed without any agitated behavior. Speech: Patient's speech is fluent and nonpressured. Mood/Affect: Mood is improving mildly, affect is congruent and constricted. Suicidality/Homicidality: Patient denies having any suicidal or homicidal ideation intent or plan. Perceptions: Patient denies any visual hallucinations and denies any auditory hallucinations Though content/process: There is no evidence of any delusional thought content and thought process is linear and goal-directed. Memory and concentration: AOX3, grossly intact for the purposes of this session Judgment and insight: Improving mildly Vital Signs Temp 97.2 F L 09/23/22 06:42 Pulse 74 09/23/22 06:42 Resp 16 09/23/22 06:42 BP 101/56 09/23/22 06:42 Pulse Ox 97 09/23/22 06:42 FiO2 Laboratory Results WBC 6.8 k/uL (3.8-10.6) 09/22/22 10:47 RBC 5.40 m/uL (4.30-5.90) 09/22/22 10:47 Hgb 16.2 gm/dL (13.0-17.5) 09/22/22 10:47 Hct 45.6 % (39.0-53.0) 09/22/22 10:47 MCV 84.5 fL (80.0-100.0) 09/22/22 10:47 MCH 30.1 pg (25.0-35.0) 09/22/22 10:47 MCHC 35.6 g/dL (31.0-37.0) 09/22/22 10:47 RDW 12.7 % (11.5-15.5) 09/22/22 10:47 Plt Count 289 k/uL (150-450) 09/22/22 10:47 MPV 6.7 09/22/22 10:47 Neutrophils % 68 % 09/22/22 10:47 Lymphocytes % 18 % 09/22/22 10:47 Monocytes % 8 % 09/22/22 10:47 Eosinophils % 4 % 09/22/22 10:47 Basophils % 1 % 09/22/22 10:47 Neutrophils # 4.6 k/uL (1.3-7.7) 09/22/22 10:47 Lymphocytes # 1.3 k/uL (1.0-4.8) 09/22/22 10:47 Monocytes # 0.5 k/uL (0-1.0) 09/22/22 10:47 Eosinophils # 0.3 k/uL (0-0.7) 09/22/22 10:47 Basophils # 0.0 k/uL (0-0.2) 09/22/22 10:47 Sodium 140 mmol/L (137-145) 09/22/22 10:47 Potassium 4.4 mmol/L (3.5-5.1) 09/22/22 10:47 Chloride 104 mmol/L (98-107) 09/22/22 10:47 Carbon Dioxide 27 mmol/L (22-30) 09/22/22 10:47 Anion Gap 9 mmol/L 09/22/22 10:47 BUN 14 mg/dL (9-20) 09/22/22 10:47 Creatinine 0.83 mg/dL (0.66-1.25) 09/22/22 10:47 Est GFR (CKD-EPI)AfAm >90 (>60 ml/min/1.73 sqM) 09/22/22 10:47 Est GFR (CKD-EPI)NonAf >90 (>60 ml/min/1.73 sqM) 09/22/22 10:47 Glucose 81 mg/dL (74-99) 09/22/22 10:[address] Glu mg/dL 89 09/22/22 10:47 Hemoglobin A1c 4.7 % (0.0-6.0) 09/22/22 10:47 Calcium 9.5 mg/dL (8.4-10.2) 09/22/22 10:47 Triglycerides 125.00 mg/dL (0.00-149.00) 09/22/22 10:47 Cholesterol 163.00 mg/dL (0.00-200.00) 09/22/22 10:47 LDL Cholesterol, Calc 99.1 mg/dL (0.0-131.0) 09/22/22 10:47 VLDL Cholesterol, Calc 25.00 mg/dL (5.00-40.00) 09/22/22 10:47 HDL Cholesterol 38.90 mg/dL (40.00-60.00) L 09/22/22 10:47 Cholesterol/HDL Ratio 4.19 Ratio 09/22/22 10:47 TSH 1.120 mIU/L (0.465-4.680) 09/22/22 10:47 Urine Opiates Screen Not Detected (NotDetected) 09/21/22 15:59 Ur Oxycodone Screen Not Detected (NotDetected) 09/21/22 15:59 Urine Methadone Screen Not Detected (NotDetected) 09/21/22 15:59 Ur Propoxyphene Screen Not Detected (NotDetected) 09/21/22 15:59 Ur Barbiturates Screen Not Detected (NotDetected) 09/21/22 15:59 U Tricyclic Antidepress Not Detected (NotDetected) 09/21/22 15:59 Ur Phencyclidine Scrn Not Detected (NotDetected) 09/21/22 15:59 Ur Amphetamines Screen Not Detected (NotDetected) 09/21/22 15:59 U Methamphetamines Scrn Not Detected (NotDetected) 09/21/22 15:59 U Benzodiazepines Scrn Not Detected (NotDetected) 09/21/22 15:59 Urine Cocaine Screen Not Detected (NotDetected) 09/21/22 15:59 U Marijuana (THC) Screen Detected (NotDetected) H 09/21/22 15:59 Coronavirus (PCR) Not Detected (Not Detectd) 09/21/22 15:01 Assessment Major Depressive Disorder, recurrent, severe with psychotic features Cannabis use disorder Methamphetamine use disorder, in early remission Nicotine Dependence Homelessness Plan: -Patient continues to meet criteria for inpatient psychiatric admission for symptom stabilization and safety. Patient has signed adult voluntary form and medication consent and was placed in patient's chart. -Medications: Invega 6 mg by mouth at bedtime for mood stabilization/psychosis Trazodone 50 mg. At bedtime for insomnia -When necessary Vistaril and Haldol for agitation/aggression. -NRT - nicotine patch -SW on board for discharge planning. Encouraged the patient to participate in milieu.
[2022-09-23] MEDS ORDERED: ALBUTEROL INHALER 60 PUFF/8 GM INHALER (MHU) INHALATION PRN (17:34)
[2022-09-23] MEDS: LORATADINE 10 MG TAB PO SCH (18:52)
[2022-09-23] MEDS: traZODone HCL 50 MG TAB PO SCH (20:28)
[2022-09-23] MEDS: guaiFENesin 600 MG TABLET.ER PO SCH (20:29)
[2022-09-23] MEDS: PALIPERIDONE 6 MG TAB.ER.24 PO SCH (20:29)
[2022-09-24 07:08] VITALS: RESP 14; TEMP 98.4
[2022-09-24] MEDS: MAG HYDROX/AL HYDROX/SIMETH 30 ML CUP PO PRN ×3 (10:04→20:06)
[2022-09-24] MEDS: guaiFENesin 600 MG TABLET.ER PO SCH ×2 (10:04→20:07)
[2022-09-24] MEDS: LORATADINE 10 MG TAB PO SCH (10:04)
--- NOTE | 2022-09-24 11:33 | P.PN ---
Progress Note - Text Progress Note Date: 09/24/22 Interval History: Patient was seen resting in bed and was directable and agreeable to speak with credit underwriter in his room. Currently, the patient is not reporting any suicidal or homicidal ideation, intention, and/or plan. He is not reporting any auditory or visual hallucinations. He was tested for covid which was negative. He is not reporting any issues or concerns at this time. He is future and goal oriented and plans to start working in [employer]. He reports he talked with a previous employer and can start on Thursday. He is anticipating discharge tomorrow. He states he will make do with living in the outdoors until he saves enough money for senior living. Mental Status Exam: General Appearance: Patient appears to be stated age is alert, directable, and cooperative. Behavior: Patient is calmly lying down in bed without any agitated behavior. Speech: Patient's speech is fluent and nonpressured. Mood/Affect: Mood is improving mildly, affect is congruent and constricted. Suicidality/Homicidality: Patient denies having any suicidal or homicidal ideation intent or plan. Perceptions: Patient denies any visual hallucinations and denies any auditory hallucinations Though content/process: There is no evidence of any delusional thought content and thought process is linear and goal-directed. Memory and concentration: AOX3, grossly intact for the purposes of this session Judgment and insight: Improving mildly Vital Signs Temp 98.4 F 09/24/22 06:47 Pulse 67 09/24/22 06:47 Resp 14 09/24/22 06:47 BP 107/52 09/24/22 06:47 Pulse Ox 97 09/23/22 06:42 FiO2 Laboratory Results - Last 24 Hours 09/23/22 09/23/22 13:56 14:00 Coronavirus (PCR) Not Detected Influenza Type A RNA Not Detected Influenza Type B (PCR) Not Detected Assessment Major Depressive Disorder, recurrent, severe with psychotic features Cannabis use disorder Methamphetamine use disorder, in early remission Nicotine Dependence Homelessness Plan: -Patient continues to meet criteria for inpatient psychiatric admission for symptom stabilization and safety. Patient has signed adult voluntary form and medication consent and was placed in patient's chart. -Medications: Invega 6 mg by mouth at bedtime for mood stabilization/psychosis Trazodone 50 mg. At bedtime for insomnia -When necessary Vistaril and Haldol for agitation/aggression. -NRT - nicotine patch -SW on board for discharge planning. Encouraged the patient to participate in milieu.
[2022-09-24] MEDS: ACETAMINOPHEN TAB 325 MG TAB PO PRN ×2 (16:00→20:06)
[2022-09-24] MEDS: traZODone HCL 50 MG TAB PO SCH (20:07)
[2022-09-24] MEDS: PALIPERIDONE 6 MG TAB.ER.24 PO SCH (20:07)
[2022-09-25] MEDS: ACETAMINOPHEN TAB 325 MG TAB PO PRN (04:16)
[2022-09-25] MEDS: MAG HYDROX/AL HYDROX/SIMETH 30 ML CUP PO PRN (04:16)
[2022-09-25] MEDS ORDERED: diphenhydrAMINE 25 MG CAP PO STA (06:01)
[2022-09-25 06:43] VITALS: BP 131/61; PULSE 61
[2022-09-25] MEDS: LORATADINE 10 MG TAB PO SCH (08:23)
[2022-09-25] MEDS: guaiFENesin 600 MG TABLET.ER PO SCH (08:23)
--- NOTE | 2022-09-25 11:23 | P.DS ---
Providers Date of admission: 09/21/22 16:58 Expected date of discharge: 09/25/22 Attending physician: Keagan Gonsalves MD Consults: 09/21/22 17:03 Consult Physician Routine Consulting Provider: Davon Franklin Consult Reason/Comments: medical management Do you want consulting provider notified?: Yes Primary care physician: Stated None - Discharge Diagnosis(es) (1) Major depressive disorder, recurrent, severe with psychotic features Current Visit: Yes Status: Acute Priority: High (2) Cannabis use disorder Current Visit: Yes Status: Chronic Priority: Medium (3) Tobacco use disorder Current Visit: Yes Status: Chronic Priority: Medium (4) Methamphetamine use disorder, moderate, in early remission Current Visit: No Status: Chronic Priority: Medium Hospital Course: Admission HPI: Patient is a single, unemployed, homeless 21-year-old male with significant history of methamphetamine abuse who presented to our hospital on 09/21/2021, with a chief complaint of suicidal ideation. Patient presented to the hospital on 09/21/2022 complaining of suicidal ideation with a plan to jump into the [place]. The patient reports that his family has been disappointed in him. He reports that he had a full ride to go to college however gave it up for his significant other. He reports that his significant other who eventually cheated on him and that they're no longer together. He has been reporting auditory hallucinations commanding him to kill himself. He signed himself voluntarily to the psychiatric unit. The patient reports that his mood has been significantly declining over the past few weeks. He was most recently on our psychiatric unit from 09/04/2022 to 09/08/2022. During that admission, the patient was presenting with visual hallu cinations he was discharge on a regimen of Invega and trazodone. Patient reports that he was not adherent with his medications or his outpatient follow- up. He reports feeling hopeless and helpless stating that he has no place to go to. He reports that he has no direction in life. He is vehemently denying any substance abuse. He reports that he occasionally uses marijuana however is denying any current methamphetamine use. In regards to psychotic symptoms, the patient reports that he has been experiencing auditory hallucinations. He reports that he hears a voice which she does not recognize tell him to go kill himself. He describes this voice as being inside his head. He reports that it has decreased in severity since restarting his Invega last night. In regards to mood symptoms, he endorses suicidal ideation, low mood, poor sleep, poor hygiene and grooming, and poor appetite. He reports no symptoms of guy or hypomania. He denies any grandiosity, mood lability, or increased goal directed activity. He denies any excessive energy. He signed himself voluntarily onto the psychiatric unit. Patient has a history of substance induced psychosis. He is also chronically homeless and there is concern for secondary gain. He was last discharged on a regimen of invega after being admitted for 3 days earlier this month. He has had 3 prior psychiatric admissions to this unit. Patient denies any psychiatric outpatient follow-up. Patient denies any history of suicide attempts in the past. Hospital course: Upon admission to the unit patient was initially endorsing auditory halluci nations, suicidal ideation, and low mood. Patient was however directable and agreeable to commence treatment. Patient got along well with other patients on the unit and followed unit protocol. Patient was compliant with the medications and denied any side effects throughout hospital course. Patient was started on Invega for psychosis and trazodone for insomnia. Patient spoke of his stressors and engaged in therapy both group and individual. Patient was also seen by medical team for history and physical exam. Throughout the course of the hospitalization patient gradually improved with regards to depression, anxiety, sleep and became future oriented with improved insight and judgment. On the day of discharge patient denied any suicidal or homicidal ideations intent or plan denied any auditory or visual hallucinations. Patient endorsed wanting to live for his health. He also reports that he would be starting a new job on Thursday. The patient denied any access to guns or weapons. Patient denied any paranoia and did not endorse any delusions. Patient does have a significant history of substance abuse however was counseled on abstaining from all substances including alcohol and marijuana. Patient was offered however declined inpatient substance-abuse rehab. Patient was also counseled on the medications and need for regular compliance and was encouraged to follow-up with their outpatient appointment for mental health and also for primary care. Prior to discharge a family meeting will be arranged by director of social services to answer any questions and ensure safety upon discharge. The patient was offered resources for detention however states that he would rather be out on [address]. He does not endorse any medical issues or concerns on the day of discharge. He denies any chest pain, shortness of breath, palpitations, or musculoskeletal issues. Mental status exam: General Appearance: Patient appears to be stated age is alert, pleasant, and cooperative. Patient is in no acute distress and has fair hygiene and grooming Behavior: Patient is calmly seated without any agitated behavior. Speech: Patient's speech is fluent and nonpressured. Mood/Affect: Patient reports their mood is "much better", affect is congruent and euthymic to bright. Suicidality/Homicidality: Patient denies having any suicidal or homicidal ideation intent or plan. Perceptions: Patient denies any auditory or visual hallucinations. Though content/process: There is no evidence of any delusional thought content and thought process is linear and goal-directed. Patient is future oriented. Memory and concentration: AOX3, grossly intact for the purposes of this session. Can spell "WORLD" backwards correctly. Judgment and insight: Improved with guarded prognosis Impression: Major Depressive Disorder, recurrent, severe with psychotic features Cannabis use disorder Methamphetamine use disorder, in early remission Nicotine Dependence Homelessness Plan: -Continue with discharge today as patient has improved and stabilized psychiatrically and is not currently an imminent threat to himself and/or others. Patient will remain at chronically elevated risk for harm to self and/or others due to his impulsivity, homelessness, and polysubstance abuse. -Continue medications: Invega 6 mg by mouth at bedtime for mood stabilization/psychosis Trazodone 50 mg at bedtime for insomnia -Patient was counseled on the need for medication compliance and appropriate follow-up at mental health and also primary care for medical issues. Patient verbalized understanding and agreed. -Social work to arrange for and conduct family meeting to ensure safety upon discharge and answer any questions/concerns. Social work also to arrange for patients follow up appointments with [facility] for psychiatric care along with follow up with primary care provider. -Patient counseled on abstaining from recreational drugs and marijuana and alcohol. Was informed/educated on the adverse effects on their physical and mental health. Patient verbally agreed and understood. Patient was offered substance abuse treatment however declined at this time. -Patient was instructed to return to the hospital or seek immediate medical care if their psychiatric or medical symptoms do worsen or reoccur. -Psychoeducation and supportive therapy provided to patient. Risks and benefits of pharmacological treatment versus the risks and benefits of nontreatment weight and discussed. Informed consent discussion held. Common side effects of psychotropics discussed such as, but not limited to headache, GI disturbance, sexual dysfunction, movement disorders, sedation, and orthostatic hypotension. Life threatening and blackbox warnings of prescribed medications also discussed. Potential risks of operating a vehicle or heavy machinery discussed with patient at length. Advised on importance of compliance and a reliable and responsible manner. Patient advised to review FDA consumer labeling of all medications prior to taking. Patient verbalized understanding of potential risks, and agrees with current treatment plan. Patient advised to medically contact physician/emergency personnel if any acute changes in condition occur. Vital Signs Temp 98.4 F 09/25/22 06:25 Pulse 61 09/25/22 06:25 Resp 14 09/25/22 06:25 BP 131/61 09/25/22 06:25 Pulse Ox 97 09/23/22 06:42 FiO2 Laboratory Results WBC 6.8 k/uL (3.8-10.6) 09/22/22 10:47 RBC 5.40 m/uL (4.30-5.90) 09/22/22 10:47 Hgb 16.2 gm/dL (13.0-17.5) 09/22/22 10:47 Hct 45.6 % (39.0-53.0) 09/22/22 10:47 MCV 84.5 fL (80.0-100.0) 09/22/22 10:47 MCH 30.1 pg (25.0-35.0) 09/22/22 10:47 MCHC 35.6 g/dL (31.0-37.0) 09/22/22 10:47 RDW 12.7 % (11.5-15.5) 09/22/22 10:47 Plt Count 289 k/uL (150-450) 09/22/22 10:47 MPV 6.7 09/22/22 10:47 Neutrophils % 68 % 09/22/22 10:47 Lymphocytes % 18 % 09/22/22 10:47 Monocytes % 8 % 09/22/22 10:47 Eosinophils % 4 % 09/22/22 10:47 Basophils % 1 % 09/22/22 10:47 Neutrophils # 4.6 k/uL (1.3-7.7) 09/22/22 10:47 Lymphocytes # 1.3 k/uL (1.0-4.8) 09/22/22 10:47 Monocytes # 0.5 k/uL (0-1.0) 09/22/22 10:47 Eosinophils # 0.3 k/uL (0-0.7) 09/22/22 10:47 Basophils # 0.0 k/uL (0-0.2) 09/22/22 10:47 Sodium 140 mmol/L (137-145) 09/22/22 10:47 Potassium 4.4 mmol/L (3.5-5.1) 09/22/22 10:47 Chloride 104 mmol/L (98-107) 09/22/22 10:47 Carbon Dioxide 27 mmol/L (22-30) 09/22/22 10:47 Anion Gap 9 mmol/L 09/22/22 10:47 BUN 14 mg/dL (9-20) 09/22/22 10:47 Creatinine 0.83 mg/dL (0.66-1.25) 09/22/22 10:47 Est GFR (CKD-EPI)AfAm >90 (>60 ml/min/1.73 sqM) 09/22/22 10:47 Est GFR (CKD-EPI)NonAf >90 (>60 ml/min/1.73 sqM) 09/22/22 10:47 Glucose 81 mg/dL (74-99) 09/22/22 10:[address] Glu mg/dL 89 09/22/22 10:47 Hemoglobin A1c 4.7 % (0.0-6.0) 09/22/22 10:47 Calcium 9.5 mg/dL (8.4-10.2) 09/22/22 10:47 Triglycerides 125.00 mg/dL (0.00-149.00) 09/22/22 10:47 Cholesterol 163.00 mg/dL (0.00-200.00) 09/22/22 10:47 LDL Cholesterol, Calc 99.1 mg/dL (0.0-131.0) 09/22/22 10:47 VLDL Cholesterol, Calc 25.00 mg/dL (5.00-40.00) 09/22/22 10:47 HDL Cholesterol 38.90 mg/dL (40.00-60.00) L 09/22/22 10:47 Cholesterol/HDL Ratio 4.19 Ratio 09/22/22 10:47 TSH 1.120 mIU/L (0.465-4.680) 09/22/22 10:47 Urine Opiates Screen Not Detected (NotDetected) 09/21/22 15:59 Ur Oxycodone Screen Not Detected (NotDetected) 09/21/22 15:59 Urine Methadone Screen Not Detected (NotDetected) 09/21/22 15:59 Ur Propoxyphene Screen Not Detected (NotDetected) 09/21/22 15:59 Ur Barbiturates Screen Not Detected (NotDetected) 09/21/22 15:59 U Tricyclic Antidepress Not Detected (NotDetected) 09/21/22 15:59 Ur Phencyclidine Scrn Not Detected (NotDetected) 09/21/22 15:59 Ur Amphetamines Screen Not Detected (NotDetected) 09/21/22 15:59 U Methamphetamines Scrn Not Detected (NotDetected) 09/21/22 15:59 U Benzodiazepines Scrn Not Detected (NotDetected) 09/21/22 15:59 Urine Cocaine Screen Not Detected (NotDetected) 09/21/22 15:59 U Marijuana (THC) Screen Detected (NotDetected) H 09/21/22 15:59 Coronavirus (PCR) Not Detected (Not Detectd) 09/23/22 13:56 Influenza Type A RNA Not Detected (Not Detectd) 09/23/22 14:00 Influenza Type B (PCR) Not Detected (Not Detectd) 09/23/22 14:00 Allergies Allergy/AdvReac Type Severity Reaction Status Date / Time venom-honey bee Allergy Anaphylaxis Verified 09/21/22 14:23 [bee venom (honey bee)] Patient Condition at Discharge: Stable Plan - Discharge Summary Discharge Rx Participant: Yes New Discharge Prescriptions: New traZODone HCL [Desyrel] 50 mg PO HS 30 Days #30 tab Paliperidone [Invega] 6 mg PO HS 30 Days #30 tab Discharge Medication List Paliperidone [Invega] 6 mg PO HS 30 Days #30 tab 09/25/22 [Rx] traZODone HCL [Desyrel] 50 mg PO HS 30 Days #30 tab 09/25/22 [Rx] Follow up Appointment(s)/Referral(s): [facility] [Outside] - 09/29/22 11:00 am (intake ) Amrit Blum MD [REFERRING] - 1-2 days Patient Instructions/Handouts: Depression (DC) Activity/Diet/Wound Care/Special Instructions: Avoid the use of street drugs and alcohol. Take all medications as prescribed. When you are in need of refills on your medications, please contact your medical provider and/or outpatient psychiatrist to have this done. Please go to scheduled outpatient appointments for aftercare treatment. If symptoms return or become worse, call the crisis line at and/or go to the nearest emergency room for evaluation. Discharge Disposition: HOME SELF-CARE
== END 2022-09-25 11:31 | disposition home or self-care (01) | DRG 751 ==
LOC: EC 12:40 → 3MHU 16:58
PROVIDERS: ADMIT Psychiatry & Neurology Psychiatry; ATTEND Psychiatry & Neurology Psychiatry
DX: F33.3 Major depressive disorder, recurrent, severe with psychotic symptoms (principal); Z28.21 Immunization not carried out because of patient refusal; Z71.51 Drug abuse counseling and surveillance of drug abuser; Z71.89 Other specified counseling; Z20.822 Contact with and (suspected) exposure to COVID-19; J20.8 Acute bronchitis due to other specified organisms; Z56.0 Unemployment, unspecified; Z59.00 Homelessness unspecified; R45.851 Suicidal ideations; Z91.030 Bee allergy status; F90.9 Attention-deficit hyperactivity disorder, unspecified type; F12.10 Cannabis abuse, uncomplicated; F15.21 Other stimulant dependence, in remission; F17.210 Nicotine dependence, cigarettes, uncomplicated; F17.290 Nicotine dependence, other tobacco product, uncomplicated; G47.00 Insomnia, unspecified; Z79.899 Other long term (current) drug therapy
CPT/HCPCS: 80048; 80061; 80306; 82075; 83036; 84443; 85025; 87502; 87635; 93005; 99285

== ENCOUNTER 2022-10-05 20:44 | Inpatient (IN) | payer MEDICAID, OTHER ==
[2022-10-05] MEDS ORDERED: ACETAMINOPHEN TAB 325 MG TAB PO STA (21:01)
--- NOTE | 2022-10-05 21:06 | ED ---
Psych HPI - General Chief Complaint: Psychiatric Symptoms Stated Complaint: Mental Health Time Seen by Provider: 10/05/22 20:54 Source: patient, RN notes reviewed, old records reviewed Mode of arrival: ambulatory - History of Present Illness Initial Comments: This is a 21-year-old male frequently seen in the emergency room with depression and suicidal ideations. Presents today with 2 days of worsening depression and thoughts of self-harm. Was walking down the street today when he realized that his depression was worse and came to the emergency room. Admits to feeling suici brianne but states he does not have a plan. Patient was just discharged from the hospital on September 25 after an inpatient stay admitted on September 21. He was started on invega and trazodone and states that he is taking these medications. He denies any alcohol or drug use. States he is homeless but has been staying at a friend's house. Patient is also complaining of a frontal headache. MD Complaint: suicidal ideation, feels depressed -: days(s) (2) Associated Psychiatric Symptoms: depression, suicidal ideation History of same: Yes Quality: getting worse Context: other (homelessness) Associated Symptoms: headache (frontal) If Self Harm: admits thoughts of self harm (no plan) - Related Data Previous Rx's Medication Instructions Recorded Paliperidone [Invega] 6 mg PO HS 30 Days #30 tab 09/25/22 traZODone HCL [Desyrel] 50 mg PO HS 30 Days #30 tab 09/25/22 Allergies Allergy/AdvReac Type Severity Reaction Status Date / Time venom-honey bee Allergy Anaphylaxis Verified 10/05/22 20:45 [bee venom (honey bee)] Review of Systems ROS Statement: Those systems with pertinent positive or pertinent negative responses have been documented in the HPI. ROS Other: All systems not noted in ROS Statement are negative. Past Medical History Past Medical History: No Reported History Additional Past Medical History / Comment(s): ADHD History of Any Multi-Drug Resistant Organisms: None Reported Past Surgical History: Ear Surgery, Orthopedic Surgery Additional Past Surgical History / Comment(s): 2 R meniscus repairs tubes in ears as child. Past Anesthesia/Blood Transfusion Reactions: No Reported Reaction Past Psychological History: ADD/ADHD Smoking Status: Former smoker Past Alcohol Use History: Rare Past Drug Use History: Marijuana - Past Family History Father Family Medical History: Unable to Obtain Mother Family Medical History: Cancer General Exam Limitations: no limitations General appearance: alert, in no apparent distress Head exam: Present: atraumatic Eye exam: Present: EOMI. Absent: scleral icterus, conjunctival injection, periorbital swelling Neck exam: Absent: meningismus Respiratory exam: Absent: respiratory distress, accessory muscle use Cardiovascular Exam: Present: tachycardia Extremities exam: Present: full ROM, normal capillary refill Neurological exam: Present: alert, oriented X3 Psychiatric exam: Present: depressed, suicidal ideation Skin exam: Present: warm, dry, normal color Course Vital Signs 10/05/22 10/05/22 20:46 23:36 Temperature 98.3 F Pulse Rate 134 H 79 Respiratory 16 Rate Blood Pressure 125/78 O2 Sat by Pulse 97 Oximetry Medical Decision Making - Medical Decision Making Patient was admitted on September 21 and discharged on September 25 from our mental health unit. Discharge diagnosis major depressive disorder, recurrent. Cannabis use disorder, methamphetamine use disorder. Patient was started on invega for psychosis and trazodone for insomnia which he states has been taking. EPS nurse Nelda did speak with patient and he is willing to sign himself in for inpatient treatment again. Was pt. sent in by a medical professional or institution (, PA, REACH TRUCK OPERATOR, urgent care, hospital, or long term...) When possible be specific @ -No Did you speak to anyone other than the patient for history (EMS, parent, family, police, friend...)? What history was obtained from this source @ -No Did you review nursing and triage notes (agree or disagree)? Why? @ -I reviewed and agree with nursing and triage notes Were old charts reviewed (outside hosp., previous admission, EMS record, old EKG, old radiological studies, urgent care reports/EKG's, long term records)? Report findings @ -Yes previous mental health admission notes and discharge Differential Diagnosis (chest pain, altered mental status, abdominal pain women, abdominal pain men, vaginal bleeding, weakness, fever, dyspnea, syncope, headache, dizziness, GI bleed, back pain, seizure, CVA, palpatations, mental health, musculoskeletal)? @ -Differential Mental Health Depression, anxiety, bipolar, psychosis, schizophrenia, borderline personality, situational depression, adjustment disorder, behavioral disorder, brain tumor, malingering, substance abuse, encephalopathy, medication reaction, dementia, hypothyroidism, degenerative neurologic disorder, lupus.... This is not all- inclusive list EKG interpreted by me (3pts min.). @ -n/a X-rays interpreted by me (1pt min.). @ -None done CT interpreted by me (1pt min.). @ -None done U/S interpreted by me (1pt. min.). @ -None done What testing was considered but not performed or refused? (CT, X-rays, U/S, labs)? Why? @ -None What meds were considered but not given or refused? Why? @ -None Did you discuss the management of the patient with other professionals (professionals i.e. Dr., PA, REACH TRUCK OPERATOR, lab, RT, psych nurse, social science analyst, kindergartners helper, teacher, investigation officer, director of casework services)? Give summary @ -No Was smoking cessation discussed for >3mins.? @ -No Was critical care preformed (if so, how long)? @ -No Were there social determinants of health that impacted care today? How? (Homelessness, low income, unemployed, alcoholism, drug addiction, transportation, low edu. Level, literacy, decrease access to med. care, snf, rehab)? @ -No Was there de-escalation of care discussed even if they declined (Discuss DNR or withdrawal of care, Hospice)? DNR status @ -No What co-morbidities impacted this encounter? (DM, HTN, Smoking, COPD, CAD, Cancer, CVA, ARF, Chemo, Hep., AIDS, mental health diagnosis, sleep apnea, morbid obesity)? @ -ADHD, suicidal ideation, depression Was patient admitted / discharged? Hospital course, mention meds given and r oute, prescriptions, significant lab abnormalities, going to OR and other pertinent info. @ -Admitted Undiagnosed new problem with uncertain prognosis? @ -No Drug Therapy requiring intensive monitoring for toxicity (Heparin, Nitro, Insulin, Cardizem)? @ -No Were any procedures done? @ -No Diagnosis/symptom? @ -Suicidal ideation, depression Acute, or Chronic, or Acute on Chronic? @ -Acute on chronic Uncomplicated (without systemic symptoms) or Complicated (systemic symptoms)? @ -Uncomplicated Side effects of treatment? @ -No Exacerbation, Progression, or Severe Exacerbation? @ -No Poses a threat to life or bodily function? How? (Chest pain, USA, DC, pneumonia, PE, COPD, DKA, ARF, appy, cholecystitis, CVA, Diverticulitis, Homicidal, Suicidal, threat to staff... and all critical care pts) @ -Yes suicidal ideation with depression - Lab Data Lab Results 10/05/22 Range/Units 22:32 Coronavirus (PCR) Not Detected (Not Detectd) Disposition Clinical Impression: Suicidal ideation Disposition: ADMITTED IP TO THIS HOSP Decision Date: 10/05/22
[2022-10-06] MEDS ORDERED: MAG HYDROX/AL HYDROX/SIMETH 30 ML CUP PO PRN (00:12)
[2022-10-06] MEDS ORDERED: MAGNESIUM HYDROXIDE 2,400 MG/10 ML CUP PO PRN (00:12)
[2022-10-06] MEDS ORDERED: LORazepam 2 MG/ML INJ IM PRN (00:20)
[2022-10-06] MEDS ORDERED: haloperidoL 5 MG TAB PO PRN (00:21)
[2022-10-06] MEDS ORDERED: HALOPERIDOL LACTATE 5 MG/ML 1 ML VIAL IM PRN (00:21)
[2022-10-06] MEDS: traZODone HCL 50 MG TAB PO SCH ×2 (02:00→20:36)
[2022-10-06] MEDS: NICOTINE 14MG/24HR PATCH TRANSDERM SCH ×2 (11:14→15:30)
--- NOTE | 2022-10-06 11:16 | P.HP ---
Psychiatric H&P - . H&P Date: 10/06/22 History & Physical: Allergies Allergy/AdvReac Type Severity Reaction Status Date / Time venom-honey bee Allergy Anaphylaxis Verified 10/05/22 20:45 [bee venom (honey bee)] Vital Signs Temp 97.5 F L 10/06/22 00:59 Pulse 74 10/06/22 00:59 Resp 18 10/06/22 00:59 BP 116/71 10/06/22 00:59 Pulse Ox 97 10/06/22 00:59 FiO2 Intake & Output 10/05/22 10/06/22 10/06/22 18:59 06:59 18:59 Weight 71.305 kg Laboratory Last Values Coronavirus (PCR) Not Detected (Not Detectd) 10/05/22 22:32 10/06/22 11:16 IDENTIFYING DATA: Patient is a single, unemployed, homeless 21-year-old male with significant history of methamphetamine abuse who presented to our hospital on 10/05/2022, with a chief complaint of suicidal ideation. HPI: Patient presented to the hospital on 10/05/2022 with a chief complaint of suicidal ideation with a plan to hang himself. Patient was recently discharged from the psychiatric unit on 09/25/2022. The patient reports he was taking his medications. He was staying with a friend for the past 2 week and decided to leave his friend's home. He states when he left he suddently felt an overwhelming feeling of suicidal ideation, hopelessness, and depression. He reports elevated anxiety and worry. In regards to depressive symptoms, the patient reports hopelessness, helplessness, and concerned that he has no di rection and no place to go. He reports that he has not engaged in any substance abuse aside from marijuana and tobacco since he was last discharged. He does report that he has been experiencing auditory hallucinations that occur when he is feeling particularly stressed and depressed. He states that he hears multiple voices however they appear as whispers. He denies any visual hallucinations. He reports no paranoia or other delusions. He denies any significant symptoms of bipolar disorder. The patient signed himself voluntarily on to the psychiatric unit. PAST PSYCHIATRIC HISTORY: Patient has a history of substance induced psychosis. He is also chronically homeless and there is concern for secondary gain. He was last discharged on a regimen of invega after being discharged from the psychiatric unit approximately 2 weeks ago. He has had 4 prior psychiatric admissions to this unit. Patient denies any psychiatric outpatient follow-up. Patient denies any history of suicide attempts in the past. PMH: Past Medical History: No Reported History Additional Past Medical History / Comment(s): ADHD History of Any Multi-Drug Resistant Organisms: None Reported Past Surgical History: Ear Surgery, Orthopedic Surgery Additional Past Surgical History / Comment(s): 2 R meniscus repairs tubes in ears as child. Past Anesthesia/Blood Transfusion Reactions: No Reported Reaction Past Psychological History: ADD/ADHD Smoking Status: Former smoker Past Alcohol Use History: Rare Past Drug Use History: Marijuana ALLERGIES: Venom-honey bee CHEMICAL DEPENDENCY HISTORY: Patient smokes tobacco daily. He reports no alcohol use. He admits to frequent marijuana use. He denies any methamphetamine use for "months." FAMILY PSYCHIATRIC/SUBSTANCE USE HISTORY: No reported history. SOCIAL HISTORY: Patient was born and raised in [facility] [place] [facility] [place]. He states that he is single, he is homeless. He has no kids. He is currently unemployed. He claims that he he was released recently released from [facility] after spending about 30 days in there for driving without a license and released in late August 2022. MENTAL STATUS EXAM: General Appearance: Patient appears to be stated age is alert, directable, and attempts to cooperate. Patient appears to have poor hygiene and grooming. Behavior: Patient is seated without any agitated behavior. Eye contact is appropriate Speech: Patient's speech is fluent and nonpressured. Mood/Affect: Patient reports their mood is depressed, affect is congruent and constricted. Suicidality/Homicidality: Patient denies having any homicidal ideation intent or plan. Patient endorses suicidal ideation with a plan to hang himself. Perceptions: Patient denies any visual hallucinations and denies any auditory hallucinations Though content/process: There is no evidence of any delusional thought content and thought process is linear and goal-directed. Memory and concentration: AOX3, grossly intact for the purposes of this session. Can spell "WORLD" backwards Judgment and insight: Poor STRENGTHS/WEAKNESSES: Strength is that the patient is resourceful. Weakness is substance abuse and chronic homelessness INTELLECT: average IMPRESSIONS: Major Depressive Disorder, recurrent, severe with psychotic features Suspected malingering due to chronic homelessness Cannabis use disorder Methamphetamine use disorder, in early remission Nicotine Dependence Homelessness PLAN: -Patient is admitted under voluntary status to [facility] for stabilization of psychiatric symptoms and safety. Patient signed adult voluntary form and medication consent and is placed in patient's chart. -Medications : Invega 6 mg by mouth at bedtime for and mood congruent auditory hallucinations Prozac 30 mg by mouth daily for depression/anxiety Trazodone 50 mg by mouth at bedtime for depression/insomnia -Ativan and Haldol PRN for agitation/aggression -Patient was counselled on substance abuse and desired to cut back on use -Patient was informed of the risks, benefits and side effects of the medication and patient verbally consented to taking the medications. Patient signed med consent form and was placed in chart. -Internal Medicine consult to perform medical evaluation and physical. -NRT - nicotine patch -SW on board for discharge planning. Encourage patient to participate in groups to work on coping skills. 10/06/22 11:16
--- NOTE | 2022-10-06 15:02 | XR ---
EXAMINATION TYPE: XR ankle complete LT DATE OF EXAM: 10/06/2022 COMPARISON: NONE HISTORY: Pain FINDINGS: Three views of the ankle demonstrate the ankle mortise to be intact and symmetric. The joint spaces are preserved. The osseous structures are intact. Small calcaneal spur noted. IMPRESSION: 1. No definite acute fracture or dislocation, if symptoms persist follow-up study in 7 to 10 days wou ld be suggested.
[2022-10-06] MEDS: ACETAMINOPHEN TAB 325 MG TAB PO PRN (16:09)
--- NOTE | 2022-10-06 16:17 | P.HPIM ---
History of Present Illness H&P Date: 10/06/22 This is a pleasant 21 year old male who follows with Dr. Restrepo in the outpatient setting. Patient presents to the with worsening depression and suicidal ideation. He was recently treated inpatient for the same and discharged. He states he is homeless currently alternating staying with 2 different friends. He denies any alcohol use, denies any tobacco use. He does admit to smoking marijuana joints daily. Currently not working. Does not get along with his parents currently. He is currently reporting feelings of suicidal ideation however states they are less than when he came in. He states he has not followed up with [facility] that they wanted to give him an Invega injection because "they were trying to give me a female hormone injection." He is admitted and undergoing psychiatric evaluation. Covid is negative. He denies chest pain, denies shortness of breath. No nausea, vomiting or diarrhea. No recent illness. He does report pain to the left ankle and tender to palpation. He states a few weeks ago was walking and rolled his ankle. Xray is obtained and there is no acute fracture or dislocation. Can follow up if symptoms persist can follow up in 7 to 10 days. There is no localized redness or swelling. He has <3 seconds cap refill. Patient is hemodynamically stable. REVIEW OF SYSTEMS: CONSTITUTIONAL: No fever, no malaise, no fatigue. HEENT: No recent visual problems or hearing problems. Denied any sore throat. CARDIOVASCULAR: No chest pain, orthopnea, PND, no palpitations, no syncope. PULMONARY: No shortness of breath, no cough, no hemoptysis. GASTROINTESTINAL: No diarrhea, no nausea, no vomiting, no abdominal pain. NEUROLOGICAL: No headaches, no weakness, no numbness. HEMATOLOGICAL: Denies any bleeding or petechiae. GENITOURINARY: Denies any burning micturition, frequency, or urgency. MUSCULOSKELETAL/RHEUMATOLOGICAL: Denies any joint pain, swelling, or any muscle pain. Reports left ankle pain. ENDOCRINE: Denies any polyuria or polydipsia. The rest of the 14-point review of systems is negative. PHYSICAL EXAMINATION: GENERAL: The patient is alert and oriented x3, not in any acute distress. Well developed, well nourished. HEENT: Pupils are round and equally reacting to light. EOMI. No scleral icterus. No conjunctival pallor. Normocephalic, atraumatic. No pharyngeal erythema. No thyromegaly. CARDIOVASCULAR: S1 and S2 present. No murmurs, rubs, or gallops. PULMONARY: Chest is clear to auscultation, no wheezing or crackles. ABDOMEN: Soft, nontender, nondistended, normoactive bowel sounds. No palpable organomegaly. MUSCULOSKELETAL: No joint swelling or deformity. EXTREMITIES: No cyanosis, clubbing, or pedal edema. Left ankle tenderness to palpation cap refill <3 seconds NEUROLOGICAL: Gross neurological examination did not reveal any focal deficits. SKIN: No rashes. Assessment and Plan Assessment Depression/Suicidal ideation requiring multiple inpatient hospital admission History of ADHD Marijuana use Left ankle pain patient reports "rolling ankle" imaging is negative for any acute pathology GI prophylaxis Full Code Plan Left ankle xray obtained and negative for acute findings supportive care recommended. can Ice/Heat as tolerated All other medications per psychiatry Patient follows with Dr. Restrepo in the office, PCP has been changed to Dr. Restrepo to follow up with for any additional concerns Thank you kindly for this consultation The impression and plan of care has been dictated by Anni Nickerson Nurse Practitioner as directed. Dr. Rich MD I have performed a history and physical examination and medical decision making of this patient, discussed the same with the dictator, and agree with the dictators assessment and plan as written, documented as a scribe. Based on total visit time, I have performed more than 50% of this visit. Past Medical History Past Medical History: No Reported History Additional Past Medical History / Comment(s): ADHD History of Any Multi-Drug Resistant Organisms: None Reported Past Surgical History: Ear Surgery, Orthopedic Surgery Additional Past Surgical History / Comment(s): 2 R meniscus repairs tubes in ears as child. Past Anesthesia/Blood Transfusion Reactions: No Reported Reaction Past Psychological History: ADD/ADHD Smoking Status: Former smoker Past Alcohol Use History: Rare Past Drug Use History: Marijuana - Past Family History Father Family Medical History: Unable to Obtain Mother Family Medical History: Cancer Medications and Allergies Home Medications Medication Instructions Recorded Confirmed Type Paliperidone [Invega] 6 mg PO HS 30 Days #30 tab 09/25/22 Rx traZODone HCL [Desyrel] 50 mg PO HS 30 Days #30 tab 09/25/22 Rx Allergies Allergy/AdvReac Type Severity Reaction Status Date / Time venom-honey bee Allergy Anaphylaxis Verified 10/05/22 20:45 [bee venom (honey bee)] Physical Exam Vitals: Vital Signs Temp Pulse Pulse Resp BP BP Pulse Ox 10/06/22 00:59 97.5 F L 74 18 116/71 97 10/05/22 23:36 79 10/05/22 20:46 98.3 F 134 H 16 125/78 97 Intake and Output 10/05/22 10/06/22 10/06/22 22:59 06:59 14:59 Other: Weight 68.039 kg 71.305 kg Thrombosis Risk Factor Assmnt - Choose All That Apply Any of the Below Risk Factors Present?: No Other Risk Factors: No Other congenital or acquired thrombophilia - If yes, enter type in comment: No Thrombosis Risk Factor Assessment Level: Very Low Risk Assessment and Plan Time with Patient: Less than 30
[2022-10-06] MEDS: PALIPERIDONE 6 MG TAB.ER.24 PO SCH (20:36)
[2022-10-07] MEDS: FLUoxetine HCL 10 MG CAP PO SCH (08:14)
[2022-10-07] MEDS: NICOTINE 14MG/24HR PATCH TRANSDERM SCH (08:15)
--- NOTE | 2022-10-07 11:59 | P.PN ---
Progress Note - Text Progress Note Date: 10/07/22 Interval History: Patient was seen resting in bed and was directable and agreeable to speak with fha underwriter in his room., The patient is not reporting any suicidal or homicidal ideation, intention, and/or plan. He is not reporting any auditory or visual hallucinations. Denies any paranoia or other delusions. The patient has been adherent with his medication and is not endorsing any significant side effects. He denies any medical issues or concerns. He reports no issues regarding his sleep or appetite. Patient states that he would return to his friend's place upon discharge. Mental Status Exam: General Appearance: Patient appears to be stated age is alert, directable, and cooperative. Behavior: Patient is calmly seated without any agitated behavior. Speech: Patient's speech is fluent and nonpressured. Mood/Affect: Mood is improving mildly, affect is congruent and constricted. Suicidality/Homicidality: Patient denies having any suicidal or homicidal ideation intent or plan. Perceptions: Patient denies any visual hallucinations and denies any auditory h allucinations Though content/process: There is no evidence of any delusional thought content and thought process is linear and goal-directed. Memory and concentration: AOX3, grossly intact for the purposes of this session Judgment and insight: Improving mildly Vital Signs Temp 98.0 F 10/07/22 06:58 Pulse 50 L 10/07/22 06:58 Resp 17 10/07/22 06:58 BP 110/54 10/07/22 06:58 Pulse Ox 98 10/07/22 06:58 FiO2 Assessment Major Depressive Disorder, recurrent, severe with psychotic features Suspected malingering due to chronic homelessness Cannabis use disorder Methamphetamine use disorder, in early remission Nicotine Dependence Homelessness Plan: -Patient continues to meet criteria for inpatient psychiatric admission for sym ptom stabilization and safety. Patient has signed adult voluntary form and medication consent and was placed in patient's chart. -Medications: Invega 6 mg by mouth at bedtime for and mood congruent auditory hallucinations Prozac 30 mg by mouth daily for depression/anxiety Trazodone 50 mg by mouth at bedtime for depression/insomnia -When necessary Ativan and Haldol for agitation/aggression. -NRT - nicotine patch -SW on board for discharge planning. Encouraged the patient to participate in milieu.
[2022-10-07] MEDS: ACETAMINOPHEN TAB 325 MG TAB PO PRN (17:34)
[2022-10-07] MEDS: PALIPERIDONE 6 MG TAB.ER.24 PO SCH (20:32)
[2022-10-07] MEDS: traZODone HCL 50 MG TAB PO SCH (20:32)
[2022-10-07] MEDS: LORazepam 1 MG TAB PO PRN (20:33)
[2022-10-08] MEDS: ACETAMINOPHEN TAB 325 MG TAB PO PRN ×2 (10:14→15:32)
[2022-10-08] MEDS: NICOTINE 14MG/24HR PATCH TRANSDERM SCH (10:16)
[2022-10-08] MEDS: FLUoxetine HCL 10 MG CAP PO SCH (10:16)
--- NOTE | 2022-10-08 11:16 | P.PN ---
Progress Note - Text Progress Note Date: 10/08/22 Interval History: Patient was seen resting in bed and was directable and agreeable to speak with flex o writer operator in his room. The patient is currently not reporting any suicidal or homicidal ideation, intention, and/or plan. He is not reporting any auditory or visual hallucinations. He denies any paranoia or other delusions. He has been adherent with this medication is not endorsing any significant side effects. He denies any chest pain, shortness of breath, or palpitations. He reports no issues regarding his sleep or his appetite. Mental Status Exam: Grossly unchanged from yesterday General Appearance: Patient appears to be stated age is alert, directable, and cooperative. Behavior: Patient is calmly seated without any agitated behavior. Speech: Patient's speech is fluent and nonpressured. Mood/Affect: Mood is improving mildly, affect is congruent and constricted. Suicidality/Homicidality: Patient denies having any suicidal or homicidal ideation intent or plan. Perceptions: Patient denies any visual hallucinations and denies any auditory hallucinations Though content/process: There is no evidence of any delusional thought content and thought process is linear and goal-directed. Memory and concentration: AOX3, grossly intact for the purposes of this session Judgment and insight: Improving mildly Vital Signs Temp 97.8 F 10/08/22 06:48 Pulse 48 L 10/08/22 06:48 Resp 14 10/08/22 06:48 BP 98/53 10/08/22 06:48 Pulse Ox 98 10/07/22 06:58 FiO2 Assessment Major Depressive Disorder, recurrent, severe with psychotic features Suspected malingering due to chronic homelessness Cannabis use disorder Methamphetamine use disorder, in early remission Nicotine Dependence Homelessness Plan: -Patient continues to meet criteria for inpatient psychiatric admission for symptom stabilization and safety. Patient has signed adult voluntary form and medication consent and was placed in patient's chart. Anticipate discharge tomorrow -Medications: Invega 6 mg by mouth at bedtime for and mood congruent auditory hallucinations Prozac 30 mg by mouth daily for depression/anxiety Trazodone 50 mg by mouth at bedtime for depression/insomnia -When necessary Ativan and Haldol for agitation/aggression. -NRT - nicotine patch -SW on board for discharge planning. Encouraged the patient to participate in milieu.
[2022-10-08] MEDS ORDERED: NICOTINE GUM (POLACRILEX) 2 MG GUM BUCCAL PRN (17:22)
[2022-10-08] MEDS: traZODone HCL 50 MG TAB PO SCH (20:07)
[2022-10-08] MEDS: PALIPERIDONE 6 MG TAB.ER.24 PO SCH (20:07)
[2022-10-08] MEDS: LORazepam 1 MG TAB PO PRN (20:08)
--- NOTE | 2022-10-08 20:27 | CONS ---
CONSULTATION CHIEF COMPLAINT: Major depression. HISTORY OF PRESENT ILLNESS: This gentleman is asleep at that time, but states that he was becoming depressed and was having thoughts of harming himself. He is currently not seeing a therapist. REVIEW OF SYSTEMS: He denies headaches, chest pain, shortness of breath, abdominal pain, etc. Past medical history, family history and personal and social histories are otherwise unremarkable and noncontributory. PHYSICAL EXAMINATION: VITAL SIGNS: Blood pressure is 116/78 with a pulse of 69, respirations of 20. GENERAL: He is afebrile, in general appears to be slender and in no acute distress. SKIN: Color is normal. Skin is warm and dry. HEENT: Head, ears, eyes, nose, mouth and throat seem to be normal. CHEST: Clear. CARDIAC: Demonstrates sinus rhythm. ABDOMEN: Soft, nontender. IMPRESSION: Major depression. PLAN: No change in a management. MMODL / IJN: [id number] /
[2022-10-09 06:16] VITALS: BP 111/65; PULSE 92; RESP 16; TEMP 97.9
[2022-10-09] MEDS: FLUoxetine HCL 10 MG CAP PO SCH ×2 (09:15→09:19)
[2022-10-09] MEDS: NICOTINE 14MG/24HR PATCH TRANSDERM SCH (09:15)
--- NOTE | 2022-10-09 11:27 | P.DS ---
Providers Date of admission: 10/05/22 23:51 Expected date of discharge: 10/09/22 Attending physician: Keagan Gonsalves MD Consults: 10/06/22 15:58 Consult Physician Routine Consulting Provider: Gordon Restrepo Consult Reason/Comments: h & P medical management Do you want consulting provider notified?: Yes Primary care physician: Viktoria Marcus - Discharge Diagnosis(es) (1) Depressive disorder Current Visit: Yes Status: Acute Priority: High (2) Malingering Current Visit: Yes Status: Suspected Priority: High (3) Homelessness Current Visit: Yes Status: Chronic Priority: Medium (4) Cannabis use disorder Current Visit: Yes Status: Chronic Priority: Medium (5) Tobacco use disorder Current Visit: Yes Status: Chronic Priority: Medium (6) Methamphetamine use disorder, moderate, in early remission Current Visit: No Status: Chronic Priority: Medium Hospital Course: Admission HPI: vanda is a single, unemployed, homeless 21-year-old male with significant history of methamphetamine abuse who presented to our hospital on 10/05/2022, with a chief complaint of suicidal ideation. Patient presented to the hospital on 10/05/2022 with a chief complaint of suicidal ideation with a plan to hang himself. Patient was recently discharged from the psychiatric unit on 09/25/2022. The patient reports he was taking his medications. He was staying with a friend for the past 2 week and decided to leave his friend's home. He states when he left he suddently felt an overwhelming feeling of suicidal ideation, hopelessness, and depression. He reports elevated anxiety and worry. In regards to depressive symptoms, the patient reports hopelessness, helplessness, and concerned that he has no direction and no place to go. He reports that he has not engaged in any substance abuse aside from marijuana and tobacco since he was last discharged. He does report that he has been experiencing auditory hallucinations that occur when he is feeling particularly stressed and depressed. He states that he hears multiple voices however they appear as whispers. He denies any visual hallucinations. He reports no paranoia or other delusions. He denies any significant symptoms of bipolar disorder. The patient signed himself voluntarily on to the psychiatric unit. Patient has a history of substance induced psychosis. He is also chronically homeless and there is concern for secondary gain. He was last discharged on a regimen of invega after being discharged from the psychiatric unit approximately 2 weeks ago. He has had 4 prior psychiatric admissions to this unit. Patient denies any psychiatric outpatient follow-up. Patient denies any history of suicide attempts in the past. Hospital course: Upon admission to the unit patient was initially endorsing depression, suicidal ideation, and auditory hallucinations. Patient was however directable and agreeable to commence treatment. Patient got along well with other patients on the unit and followed unit protocol. Patient was compliant with the medications and denied any side effects throughout hospital course. Patient was started on Invega and Prozac was added to his regimen in order to address depression. Patient remained primarily as little to himself in his room. However he was appropriate with staff and peers. Eventually, the patient stopped taking his Prozac as he felt like the medication was causing him to feel "empty." During this hospitalization, the patient was counseled at length on the importance of abstaining from substances including marijuana. On the day of discharge, the patient is not reporting any suicidal or homicidal ideation, intention, and/or plan. He reports that he plans to stay at a friend's place. He denies any access to firearms or other weapons. He reports no auditory or visual hallucinations and denies any paranoia or other delusions. He was counseling the points medication adherence appropriate outpatient follow-up. The patient did not display any criteria for continued inpatient psychiatric hospitalization and was subsequently discharged. He reported no medical issues or concerns. Mental status exam: General Appearance: Patient appears to be stated age is alert, pleasant, and cooperative. Patient is in no acute distress and has fair hygiene and grooming Behavior: Patient is calmly seated without any agitated behavior. Speech: Patient's speech is fluent and nonpressured. Mood/Affect: Patient reports their mood is "doing okay", affect is congruent and euthymic and nonchalant. Suicidality/Homicidality: Patient denies having any suicidal or homicidal ideation intent or plan. Perceptions: Patient denies any auditory or visual hallucinations. Though content/process: There is no evidence of any delusional thought content and thought process is linear and goal-directed. Memory and concentration: AOX3, grossly intact for the purposes of this session. Can spell "WORLD" backwards correctly. Judgment and insight: Improved with guarded prognosis Impression: Depressive disorder, unspecified Malingering Cannabis use disorder Methamphetamine use disorder, in early remission Tobacco use disorder Homelessness Plan: -Continue with discharge today as patient has improved and stabilized psychiatrically and is not currently an imminent threat to himself and/or others. Patient remain at chronically elevated risk due to his history of substance abuse and homelessness. Strong suspicion for malingering and secondary gain for housing for this patient. He displays no affect consistent with depression during his admission and only vague symptoms of mental illness that is not consistent with what he is endorsing or any firm diagnosis. The treatment team has discussed possible divergent plans for this patient. -Continue medications: Invega 6 mg by mouth at bedtime for psychosis -Patient was counseled on the need for medication compliance and appropriate follow-up at mental health and also primary care for medical issues. Patient verbalized understanding and agreed. -Social work to arrange for and conduct family meeting to ensure safety upon discharge and answer any questions/concerns. Social work also to arrange for patients follow up appointments with [facility] for psychiatric care along with follow up with primary care provider. -Patient counseled on abstaining from recreational drugs and marijuana and alcohol. Was informed/educated on the adverse effects on their physical and mental health. Patient verbally agreed and understood. Patient was offered substance abuse treatment however declined at this time. -Patient was instructed to return to the hospital or seek immediate medical care if their psychiatric or medical symptoms do worsen or reoccur. -Psychoeducation and supportive therapy provided to patient. Risks and benefits of pharmacological treatment versus the risks and benefits of nontreatment weight and discussed. Informed consent discussion held. Common side effects of psychotropics discussed such as, but not limited to headache, GI disturbance, sexual dysfunction, movement disorders, sedation, and orthostatic hypotension. Life threatening and blackbox warnings of prescribed medications also discussed. Potential risks of operating a vehicle or heavy machinery discussed with patient at length. Advised on importance of compliance and a reliable and responsible manner. Patient advised to review FDA consumer labeling of all medications prior to taking. Patient verbalized understanding of potential risks, and agrees with current treatment plan. Patient advised to medically contact physician/emergency personnel if any acute changes in condition occur. Vital Signs Temp 97.9 F 10/09/22 04:40 Pulse 92 10/09/22 04:40 Resp 16 10/09/22 04:40 BP 111/65 10/09/22 04:40 Pulse Ox 98 10/07/22 06:58 FiO2 Laboratory Results Coronavirus (PCR) Not Detected (Not Detectd) 10/05/22 22:32 Allergies Allergy/AdvReac Type Severity Reaction Status Date / Time venom-honey bee Allergy Anaphylaxis Verified 10/05/22 20:45 [bee venom (honey bee)] Patient Condition at Discharge: Stable Plan - Discharge Summary Discharge Rx Participant: Yes New Discharge Prescriptions: New Paliperidone [Invega] 6 mg PO HS 30 Days #30 tab traZODone HCL [Desyrel] 50 mg PO HS 30 Days #30 tab Discontinued traZODone HCL [Desyrel] 50 mg PO HS 30 Days #30 tab Paliperidone [Invega] 6 mg PO HS 30 Days #30 tab Discharge Medication List Paliperidone [Invega] 6 mg PO HS 30 Days #30 tab 10/09/22 [Rx] traZODone HCL [Desyrel] 50 mg PO HS 30 Days #30 tab 10/09/22 [Rx] Follow up Appointment(s)/Referral(s): [facility] [Outside] - 10/14/22 11:00 am (with intake) Gordon Restrepo MD [STAFF PHYSICIAN] - 1-2 Days ( ) Patient Instructions/Handouts: Depression (DC), Suicide Prevention (DC) Activity/Diet/Wound Care/Special Instructions: Avoid the use of street drugs and alcohol. Take all medications as prescribed. When you are in need of refills on your medications, please contact your medical provider and/or outpatient psychiatrist to have this done. Please go to scheduled outpatient appointments for aftercare treatment. If symptoms return or become worse, call the crisis line at and/or go to the nearest emergency room for evaluation. Discharge Disposition: HOME SELF-CARE
== END 2022-10-09 12:10 | disposition home or self-care (01) | DRG 754 ==
LOC: EC 20:44 → 3MHU 23:51
PROVIDERS: ADMIT Psychiatry & Neurology Psychiatry; ATTEND Psychiatry & Neurology Psychiatry
DX: F32.A Depression, unspecified (principal); T43.226A Underdosing of selective serotonin reuptake inhibitors, initial encounter; S99.919D Unspecified injury of unspecified ankle, subsequent encounter; R45.851 Suicidal ideations; Z56.0 Unemployment, unspecified; Y93.01 Activity, walking, marching and hiking; Z20.822 Contact with and (suspected) exposure to COVID-19; Z59.00 Homelessness unspecified; Z76.5 Malingerer [conscious simulation]; F17.210 Nicotine dependence, cigarettes, uncomplicated; F15.21 Other stimulant dependence, in remission; F12.10 Cannabis abuse, uncomplicated; F90.9 Attention-deficit hyperactivity disorder, unspecified type; Z91.51 Personal history of suicidal behavior; Z28.311 Partially vaccinated for COVID-19; Z28.21 Immunization not carried out because of patient refusal
CPT/HCPCS: 82075; 87635; 99285

== ENCOUNTER 2022-10-14 13:54 | Emergency (ER) | payer OTHER ==
[2022-10-14 13:59] VITALS: TEMP 97.9
[2022-10-14] MEDS ORDERED: ONDANSETRON 4 MG/2 ML VIAL IVP STA (15:09)
[2022-10-14] MEDS ORDERED: SODIUM CHLORIDE 0.9% 1,000 ML IV STA (15:09)
[2022-10-14] MEDS ORDERED: MAG HYDROX/AL HYDROX/SIMETH 30 ML, HYOSCYAMINE ELIXIR 10 ML, LIDOCAINE VISCOUS 2% 10 ML PO STA ×3 (15:09)
[2022-10-14] MEDS ORDERED: KETOROLAC 15 MG/ML 1 ML VIAL IVP STA (15:09)
--- NOTE | 2022-10-14 15:12 | ED ---
Abdominal Pain HPI - General Chief Complaint: Abdominal Pain Stated Complaint: Dizziness Time Seen by Provider: 10/14/22 15:04 Source: patient, RN notes reviewed Mode of arrival: ambulatory Limitations: no limitations - History of Present Illness Initial Comments: This is a 21-year-old male who presents to the emergency department for abdominal pain, nausea, and dizziness. States that this started 3 days ago. The pain woke him up from his sleep couple of hours after he ate. He cannot recall what he ate. He has since continued to have pain in the epigastric region. He has nausea but no vomiting. He does have looser stools than normal. Also states that he feels somewhat dizzy. Denies any history of similar symptoms in the past. Denies any fevers, chills, sore throat, cough, dyspnea, chest pain, palpitations, back pain, or headaches. MD Complaint: abdominal pain Onset/Timin -: days(s) Location: epigastric Associated Symptoms: nausea, vomiting, diarrhea - Related Data Previous Rx's Medication Instructions Recorded Paliperidone [Invega] 6 mg PO HS 30 Days #30 tab 10/09/22 traZODone HCL [Desyrel] 50 mg PO HS 30 Days #30 tab 10/09/22 Omeprazole 20 mg PO DAILY 14 Days #14 cap 10/14/22 Ondansetron Odt [Zofran Odt] 4 mg PO Q8HR PRN #15 tab 10/14/22 Sucralfate [Carafate] 1 gm PO BID 7 Days #14 tablet 10/14/22 Allergies Allergy/AdvReac Type Severity Reaction Status Date / Time venom-honey bee Allergy Anaphylaxis Verified 10/14/22 15:54 [bee venom (honey bee)] Review of Systems ROS Statement: Those systems with pertinent positive or pertinent negative responses have been documented in the HPI. ROS Other: All systems not noted in ROS Statement are negative. Past Medical History Past Medical History: No Reported History Additional Past Medical History / Comment(s): ADHD History of Any Multi-Drug Resistant Organisms: None Reported Past Surgical History: Ear Surgery, Orthopedic Surgery Additional Past Surgical History / Comment(s): 2 R meniscus repairs tubes in ears as child. Past Anesthesia/Blood Transfusion Reactions: No Reported Reaction Past Psychological History: ADD/ADHD Smoking Status: Former smoker Past Alcohol Use History: Rare Past Drug Use History: Marijuana - Past Family History Father Family Medical History: Unable to Obtain Mother Family Medical History: Cancer General Exam Limitations: no limitations General appearance: alert, in no apparent distress Head exam: Present: atraumatic, normocephalic, normal inspection Respiratory exam: Present: normal lung sounds bilaterally. Absent: respiratory distress, wheezes, rales, rhonchi, stridor Cardiovascular Exam: Present: regular rate, normal rhythm, normal heart sounds. Absent: systolic murmur, diastolic murmur, rubs, gallop, clicks GI/Abdominal exam: Present: soft, tenderness (Epigastric), normal bowel sounds. Absent: distended Neurological exam: Present: alert, oriented X3, CN II-XII intact Psychiatric exam: Present: normal affect, normal mood Skin exam: Present: warm, dry, intact, normal color. Absent: rash Course Vital Signs 10/14/22 10/14/22 13:56 18:00 Temperature 97.9 F Pulse Rate 84 70 Respiratory 20 18 Rate Blood Pressure 119/74 117/77 O2 Sat by Pulse 99 98 Oximetry Medical Decision Making - Medical Decision Making This is a 21-year-old male who presents to the emergency department for abdominal pain. Was pt. sent in by a medical professional or institution? @ -No Did you speak to anyone other than the patient for history? @ -No Did you review nursing and triage notes? @ -Yes, and I agree, it is accurate with regards to the patient's symptoms. Were old charts reviewed? @ -No Differential Diagnosis? @ -Differential Abdominal Pain Men: Appendicitis, cholecystitis, diverticulosis, ischemic bowel, pancreatitis, hepatitis, UTI, gastroenteritis, AAA, incarcerated hernia, bowel obstruction, constipation, inflammatory bowel, hepatitis, peptic ulcer disease, splenic infarction, perforated viscus, testicular torsion, this is not meant to be an all-inclusive list U/S interpreted by me (1pt. min.)? @ -Gallbladder ultrasound obtained. My interpretation identifies no evidence of gallbladder wall thickening or cholelithiasis. What testing was considered but not performed? (CT, X-rays, U/S, labs)? Why? @ -None What meds were considered but not given? Why? @ -None Did you discuss the management of the patient with other professionals? @ -No Did you reconcile home meds? @ -No Was smoking cessation discussed for >3mins.? @ -No Was critical care preformed (if so, how long)? @ -No Were there social determinants of health that impacted care today? How? (Homelessness, low income, unemployed, alcoholism, drug addiction, transportation, low edu. Level, literacy, decrease access to med. care, retirement, rehab)? @ -No Was there de-escalation of care discussed even if they declined? (Discuss DNR or withdrawal of care, Hospice)? @ -No What co-morbidities impacted this encounter? (DM, HTN, Smoking, COPD, CAD, Cancer, CVA, Hep., AIDS, mental health diagnosis, sleep apnea, morbid obesity)? @ -None Was patient admitted / discharged? @ -Discharged. Lab work obtained and found to be nonactionable. Gallbladder ultrasound obtained revealing no acute findings. Symptoms well controlled in the emergency department. He was initially given IV fluids, Toradol, a GI cocktail, and Zofran. He had minor improvement in symptoms, however they were still very bothersome. He was then given Reglan and Pepcid. Patient overall felt improved and felt stable for discharge home. Symptoms may be related to a gastric ulcer or esophageal reflux. Prescription for Zofran and omeprazole provided with dosing instructions reviewed. He is instructed to follow up with his PCP for reevaluation of symptoms. Undiagnosed new problem with uncertain prognosis? @ -None Drug Therapy requiring intensive monitoring for toxicity (Heparin, Nitro, Insul in, Cardizem)? @ -None Were any procedures done? @ -None Diagnosis/symptom? @ -Epigastric pain Acute, or Chronic, or Acute on Chronic? @ -Acute Uncomplicated (without systemic symptoms) or Complicated (systemic symptoms)? @ -Uncomplicated Side effects of treatment? @ -None Exacerbation, Progression, or Severe Exacerbation] @ -Not applicable Poses a threat to life or bodily function? @ -No Return precautions reviewed in depth, the patient is instructed to return to the emergency department with any new, worsening, or concerning symptoms. Patient verbalized understanding. This case was discussed in detail with the attending ED physician, Dr. Castaneda. Presentation, findings, and treatment plan discussed in detail as well. - Lab Data Result diagrams: 10/14/22 15:26 10/14/22 15:26 Lab Results 10/14/22 10/14/22 10/14/22 Range/Units 15:26 15:26 15:26 WBC 5.7 (3.8-10.6) k/uL RBC 5.72 (4.30-5.90) m/uL Hgb 17.0 (13.0-17.5) gm/dL Hct 48.5 (39.0-53.0) % MCV 84.8 (80.0-100.0) fL MCH 29.6 (25.0-35.0) pg MCHC 35.0 (31.0-37.0) g/dL RDW 12.4 (11.5-15.5) % Plt Count 284 (150-450) k/uL MPV 6.7 Neutrophils % 52 % Lymphocytes % 36 % Monocytes % 6 % Eosinophils % 4 % Basophils % 1 % Neutrophils # 3.0 (1.3-7.7) k/uL Lymphocytes # 2.1 (1.0-4.8) k/uL Monocytes # 0.4 (0-1.0) k/uL Eosinophils # 0.2 (0-0.7) k/uL Basophils # 0.0 (0-0.2) k/uL Sodium 140 (137-145) mmol/L Potassium 4.1 (3.5-5.1) mmol/L Chloride 106 (98-107) mmol/L Carbon Dioxide 28 (22-30) mmol/L Anion Gap 6 mmol/L BUN 18 (9-20) mg/dL Creatinine 0.84 (0.66-1.25) mg/dL Est GFR (CKD-EPI)AfAm >90 (>60 ml/min/1.73 sqM) Est GFR (CKD-EPI)NonAf >90 (>60 ml/min/1.73 sqM) Glucose 92 (74-99) mg/dL Plasma Lactic Acid David 1.1 (0.7-2.0) mmol/L Calcium 9.3 (8.4-10.2) mg/dL Total Bilirubin 1.1 (0.2-1.3) mg/dL AST 22 (17-59) U/L ALT 21 (4-49) U/L Alkaline Phosphatase 68 (38-126) U/L Total Protein 7.8 (6.3-8.2) g/dL Albumin 4.7 (3.5-5.0) g/dL Amylase 66 (30-110) U/L Lipase 90 (23-300) U/L Urine Color Urine Appearance (Clear) Urine pH (5.0-8.0) Ur Specific Lena (1.001-1.035) Urine Protein (Negative) Urine Glucose (UA) (Negative) Urine Ketones (Negative) Urine Blood (Negative) Urine Nitrite (Negative) Urine Bilirubin (Negative) Urine Urobilinogen (<2.0) mg/dL Ur Leukocyte Esterase (Negative) Urine RBC (0-5) /hpf Urine WBC (0-5) /hpf Ur Squamous Epith Cells (0-4) /hpf Hyaline Casts (0-2) /lpf Urine Mucus (None) /hpf 10/14/22 Range/Units 15:27 WBC (3.8-10.6) k/uL RBC (4.30-5.90) m/uL Hgb (13.0-17.5) gm/dL Hct (39.0-53.0) % MCV (80.0-100.0) fL MCH (25.0-35.0) pg MCHC (31.0-37.0) g/dL RDW (11.5-15.5) % Plt Count (150-450) k/uL MPV Neutrophils % % Lymphocytes % % Monocytes % % Eosinophils % % Basophils % % Neutrophils # (1.3-7.7) k/uL Lymphocytes # (1.0-4.8) k/uL Monocytes # (0-1.0) k/uL Eosinophils # (0-0.7) k/uL Basophils # (0-0.2) k/uL Sodium (137-145) mmol/L Potassium (3.5-5.1) mmol/L Chloride (98-107) mmol/L Carbon Dioxide (22-30) mmol/L Anion Gap mmol/L BUN (9-20) mg/dL Creatinine (0.66-1.25) mg/dL Est GFR (CKD-EPI)AfAm (>60 ml/min/1.73 sqM) Est GFR (CKD-EPI)NonAf (>60 ml/min/1.73 sqM) Glucose (74-99) mg/dL Plasma Lactic Acid David (0.7-2.0) mmol/L Calcium (8.4-10.2) mg/dL Total Bilirubin (0.2-1.3) mg/dL AST (17-59) U/L ALT (4-49) U/L Alkaline Phosphatase (38-126) U/L Total Protein (6.3-8.2) g/dL Albumin (3.5-5.0) g/dL Amylase (30-110) U/L Lipase (23-300) U/L Urine Color Yellow Urine Appearance Clear (Clear) Urine pH 6.0 (5.0-8.0) Ur Specific Lena 1.035 (1.001-1.035) Urine Protein 1+ H (Negative) Urine Glucose (UA) Negative (Negative) Urine Ketones Negative (Negative) Urine Blood Negative (Negative) Urine Nitrite Negative (Negative) Urine Bilirubin Negative (Negative) Urine Urobilinogen 2.0 (<2.0) mg/dL Ur Leukocyte Esterase Small H (Negative) Urine RBC 1 (0-5) /hpf Urine WBC 15 H (0-5) /hpf Ur Squamous Epith Cells 1 (0-4) /hpf Hyaline Casts 2 (0-2) /lpf Urine Mucus Many H (None) /hpf - Radiology Data Radiology results: report reviewed, image reviewed Disposition Clinical Impression: Epigastric pain Disposition: HOME SELF-CARE Instructions (If sedation given, give patient instructions): Abdominal Pain (ED), Epigastric Pain (ED) Additional Instructions: Return to the emergency department with any new, worsening, or concerning sy mptoms. Take the Carafate twice daily for 7 days. Take this on an empty stomach. Take the omeprazole daily for 2 weeks. Take this 30 minutes before eating or taking any other medications. You can take the Zofran up to every 8 hours as needed for nausea and vomiting. Follow up with your primary care provider in 1-2 days. Prescriptions: Sucralfate [Carafate] 1 gm PO BID 7 Days #14 tablet Omeprazole 20 mg PO DAILY 14 Days #14 cap Ondansetron Odt [Zofran Odt] 4 mg PO Q8HR PRN #15 tab PRN Reason: Nausea And Vomiting Is patient prescribed a controlled substance at d/c from ED?: No Referrals: Amrit Blum MD [Primary Care Provider] - 1-2 days
[2022-10-14 15:36] LABS: Basophils % (A) 1 %; Eosinophils # (A) 0.2 k/uL (0-0.7); Eosinophils % (A) 4 %; HCT 48.5 % (39.0-53.0); Lymphocytes # (A) 2.1 k/uL (1.0-4.8); Lymphocytes % (A) 36 %; MCH 29.6 pg (25.0-35.0); MCV 84.8 fL (80.0-100.0); Mean Platelet Volume 6.7; Monocytes # (A) 0.4 k/uL (0-1.0); Monocytes % (A) 6 %; Neutrophils % (A) 52 %; Platelet Count 284 k/uL (150-450); RBC 5.72 m/uL (4.30-5.90); RDW 12.4 % (11.5-15.5); WBC 5.7 k/uL (3.8-10.6)
[2022-10-14 15:59] LABS: ALT 21 U/L (4-49); AST 22 U/L (17-59); African American GFR (CKD) >90 (>60 ml/min/1.73 sqM); Albumin 4.7 g/dL (3.5-5.0); Alkaline Phosphatase 68 U/L (38-126); Amylase 66 U/L (30-110); Anion Gap 6 mmol/L; Blood Urea Nitrogen 18 mg/dL (9-20); Calcium 9.3 mg/dL (8.4-10.2); Carbon Dioxide 28 mmol/L (22-30); Chloride 106 mmol/L (98-107); Glucose 92 mg/dL (74-99); Lipase 90 U/L (23-300); Non-African American GFR(CKD) >90 (>60 ml/min/1.73 sqM); Potassium 4.1 mmol/L (3.5-5.1); Sodium 140 mmol/L (137-145); Total Bilirubin 1.1 mg/dL (0.2-1.3); Total Protein 7.8 g/dL (6.3-8.2)
--- NOTE | 2022-10-14 16:04 | US ---
EXAMINATION TYPE: US gallbladder DATE OF EXAM: 10/14/2022 COMPARISON: CLINICAL HISTORY: RUQ pain. Pain TECHNIQUE: Multiple sonographic images of the right upper quadrant are obtained. FINDINGS: EXAM MEASUREMENTS: Liver Length: 17.0 Gallbladder Wall: 0.1m CBD: 0.3m Right Kidney: 10.6 x 5.8 x 4.4 Pancreas: Head and tail obscured by overlying bowel gas Liver: wnl Gallbladder: wnl, folds seen Evidence for sonographic Krishna's sign: neg CBD: wnl Right Kidney: No hydronephrosis or masses seen IMPRESSION: No discrete abnormality
[2022-10-14 16:18] LABS: Appearance,Urine Clear (Clear); Bilirubin,Urine Negative (Negative); Blood,Urine Negative (Negative); Color,Urine Yellow; Glucose,Urine (UA) Negative (Negative); Hyaline Casts,Urine 2 /lpf (0-2); Ketones,Urine Negative (Negative); Leukocyte Esterase,Urine Small (Negative); Mucus,Urine Many /hpf; Nitrite,Urine Negative (Negative); Protein,Urine 1+ (Negative); RBC,Urine 1 /hpf (0-5); Specific Gravity,Urine 1.035 (1.001-1.035); Squamous Epithelial Cell,Urine 1 /hpf (0-4); WBC,Urine 15 /hpf (0-5)
[2022-10-14] MEDS ORDERED: FAMOTIDINE 20 MG/2 ML VIAL IV STA (16:55)
[2022-10-14] MEDS ORDERED: METOCLOPRAMIDE 5 MG/ML 2 ML VIAL IVP STA (16:55)
[2022-10-14] MEDS ORDERED: ONDANSETRON 4 MG ODT STARTER PACK 2 TAB BTL PO STA (18:19)
[2022-10-14 18:47] VITALS: BP 117/77; PULSE 70; RESP 18
== END 2022-10-14 18:51 | disposition home or self-care (01) ==
LOC: EC 13:54
DX: R10.13 Epigastric pain (principal); Z87.891 Personal history of nicotine dependence; F12.90 Cannabis use, unspecified, uncomplicated; Z91.030 Bee allergy status
CPT/HCPCS: 36415; 80053; 82150; 83605; 83690; 85025; 81001; 76705; 99284; 96374; 96375 ×3; 96361 ×3; J2765; J2405; J1885; S0119

== ENCOUNTER 2022-10-20 21:10 | Emergency (ER) | payer OTHER ==
[2022-10-20 21:25] VITALS: TEMP 98.4
[2022-10-20] MEDS ORDERED: METOCLOPRAMIDE 5 MG/ML 2 ML VIAL IVP STA (23:30)
[2022-10-20] MEDS ORDERED: SODIUM CHLORIDE 0.9% 1,000 ML IV STA (23:30)
[2022-10-20] MEDS ORDERED: FAMOTIDINE 20 MG/2 ML VIAL IV STA (23:31)
[2022-10-20] MEDS ORDERED: KETOROLAC 15 MG/ML 1 ML VIAL IVP STA (23:34)
[2022-10-20] MEDS ORDERED: diphenhydrAMINE 50 MG/ML 1 ML VIAL IVP STA (23:35)
[2022-10-20] MEDS ORDERED: DEXAMETHASONE SOD PHOSPHATE 10 MG/ML 1 ML VIAL IVP STA (23:35)
[2022-10-20 23:49] LABS: Basophils # (A) 0.1 k/uL (0-0.2); Basophils % (A) 1 %; Eosinophils # (A) 0.3 k/uL (0-0.7); Eosinophils % (A) 2 %; HCT 47.3 % (39.0-53.0); HGB 16.5 gm/dL (13.0-17.5); Lymphocytes # (A) 3.1 k/uL (1.0-4.8); Lymphocytes % (A) 24 %; MCH 29.3 pg (25.0-35.0); MCHC 34.8 g/dL (31.0-37.0); MCV 84.2 fL (80.0-100.0); Mean Platelet Volume 6.7; Monocytes # (A) 0.6 k/uL (0-1.0); Monocytes % (A) 4 %; Neutrophils # (A) 8.8 k/uL (1.3-7.7); Neutrophils % (A) 68 %; Platelet Count 284 k/uL (150-450); RBC 5.61 m/uL (4.30-5.90); RDW 12.3 % (11.5-15.5)
--- NOTE | 2022-10-20 23:59 | ED ---
Nausea/Vomiting/Diarrhea HPI - General Chief complaint: Nausea/Vomiting/Diarrhea Stated complaint: Pain and pressure on right side of face Time Seen by Provider: 10/20/22 23:30 Source: patient, RN notes reviewed Mode of arrival: ambulatory Limitations: no limitations - History of Present Illness Initial comments: This is a 21-year-old male who presents to the emergency department for nausea, vomiting, and headaches. States that when he woke up this morning, he had a headache on the right temporal region. Denies any substantial history of headaches. Unsure if this would be the worst headache of his life. Shortly afterwards, he started to develop nausea and vomiting. Believes that the headache is what triggered the nausea and vomiting. He did take some of the Zofran that he was given during his last emergency department visit 6 days ago. States that the Zofran helped for a short period of time, however the nausea and vomiting then returned. He has mild generalized abdominal pain that he associates with the repeated vomiting. Denies any fevers or chills. Denies any fevers, chills, sore throat, cough, dyspnea, chest pain, palpitations, or diarrhea. MD complaint: nausea, vomiting Associated Abdominal Pain: Yes Location: diffuse - Related Data Previous Rx's Medication Instructions Recorded Paliperidone [Invega] 6 mg PO HS 30 Days #30 tab 10/09/22 traZODone HCL [Desyrel] 50 mg PO HS 30 Days #30 tab 10/09/22 Omeprazole 20 mg PO DAILY 14 Days #14 cap 10/14/22 Ondansetron Odt [Zofran Odt] 4 mg PO Q8HR PRN #15 tab 10/14/22 Sucralfate [Carafate] 1 gm PO BID 7 Days #14 tablet 10/14/22 Allergies Allergy/AdvReac Type Severity Reaction Status Date / Time venom-honey bee Allergy Anaphylaxis Verified 10/20/22 21:25 [bee venom (honey bee)] Review of Systems ROS Statement: Those systems with pertinent positive or pertinent negative responses have been documented in the HPI. ROS Other: All systems not noted in ROS Statement are negative. Past Medical History Past Medical History: No Reported History Additional Past Medical History / Comment(s): ADHD History of Any Multi-Drug Resistant Organisms: None Reported Past Surgical History: Ear Surgery, Orthopedic Surgery Additional Past Surgical History / Comment(s): 2 R meniscus repairs tubes in ears as child. Past Anesthesia/Blood Transfusion Reactions: No Reported Reaction Past Psychological History: ADD/ADHD Smoking Status: Former smoker Past Alcohol Use History: Rare Past Drug Use History: Marijuana - Past Family History Father Family Medical History: Unable to Obtain Mother Family Medical History: Cancer General Exam Limitations: no limitations General appearance: alert, in distress Head exam: Present: atraumatic, normocephalic, normal inspection Eye exam: Present: normal appearance, PERRL, EOMI. Absent: scleral icterus, conjunctival injection, periorbital swelling Neck exam: Present: normal inspection. Absent: tenderness, meningismus, lymphadenopathy Respiratory exam: Present: normal lung sounds bilaterally. Absent: respiratory distress, wheezes, rales, rhonchi, stridor Cardiovascular Exam: Present: regular rate, normal rhythm, normal heart sounds. Absent: systolic murmur, diastolic murmur, rubs, gallop, clicks GI/Abdominal exam: Present: soft, normal bowel sounds. Absent: distended, tenderness, guarding, rebound, rigid Neurological exam: Present: alert, oriented X3, CN II-XII intact Psychiatric exam: Present: normal affect, normal mood Skin exam: Present: warm, dry, intact, normal color. Absent: rash Course Vital Signs 10/20/22 10/21/22 10/21/22 21:24 00:29 02:00 Temperature 98.4 F Pulse Rate 64 96 62 Respiratory 22 18 18 Rate Blood Pressure 121/66 141/101 124/78 O2 Sat by Pulse 98 100 100 Oximetry Medical Decision Making - Medical Decision Making This is a 21-year-old male who presents to the emergency department for headaches, nausea, and vomiting. Was pt. sent in by a medical professional or institution? @ -No Did you speak to anyone other than the patient for history? @ -No Did you review nursing and triage notes? @ -Yes, and I agree, it is accurate with regards to the patient's symptoms. Were old charts reviewed? @ -No Differential Diagnosis? @ -Differential Headache: Migraine, tension, cluster, carbon monoxide, central venous thrombosis, pension karma temporal arteritis, acute closure glaucoma, intercranial hemorrhage, mastoiditis, sinusitis, head injury, this is not meant to be an all-inclusive list. -Differential Nausea and Vomiting: Gastroenteritis, cholecystitis, appendicitis, pancreatitis, migraine, benign positional vertigo, food borne illness, pyelonephritis, irritable bowel syn drome, influenza, Covid, GERD, incarcerated hernia, intestinal obstruction, this is not meant to be an all-inclusive list. CT interpreted by me (1pt min.)? @ -Computed tomography scan of the brain obtained. My interpretation identifies no evidence of acute intracranial hemorrhage or mass effect. What testing was considered but not performed? (CT, X-rays, U/S, labs)? Why? @ -None What meds were considered but not given? Why? @ -None Did you discuss the management of the patient with other professionals? @ -No Did you reconcile home meds? @ -No Was smoking cessation discussed for >3mins.? @ -No Was critical care preformed (if so, how long)? @ -No Were there social determinants of health that impacted care today? How? (Homelessness, low income, unemployed, alcoholism, drug addiction, jackson sportation, low edu. Level, literacy, decrease access to med. care, nursing home, rehab)? @ -No Was there de-escalation of care discussed even if they declined? (Discuss DNR or withdrawal of care, Hospice)? @ -No What co-morbidities impacted this encounter? (DM, HTN, Smoking, COPD, CAD, Cancer, CVA, Hep., AIDS, mental health diagnosis, sleep apnea, morbid obesity)? @ -Depressive disorder, cannabis use Was patient admitted / discharged? @ -Discharged. Lab work obtained revealing mild leukocytosis and no other actionable findings. He was initially given a headache cocktail consisting of IV fluids, Reglan, Toradol, Benadryl, and Decadron. While the nausea subsided, he had no improvement in the headache. He was then given magnesium and Tylenol. Given that he does not have a history of headaches and could not be sure if this may have been the worst headache of his life, computed tomography scan of the brain was obtained. Computed tomography scan of the brain reveals no acute findings. His headache did finally start to subside and he was able to drink bimal marilee and eat popsicles without any additional nausea or vomiting. He was given an additional dose of Toradol prior to discharge and overall felt stable enough for discharge home. Starter pack for Zofran and ibuprofen provided with dosing instructions reviewed. Otherwise advised he continue to alternate with ibuprofen and Tylenol for pain relief and slowly advance his diet as tolerated and remain well-hydrated. Undiagnosed new problem with uncertain prognosis? @ -None Drug Therapy requiring intensive monitoring for toxicity (Heparin, Nitro, Insulin, Cardizem)? @ -None Were any procedures done? @ -None Diagnosis/symptom? @ -Headache, nausea/vomiting Acute, or Chronic, or Acute on Chronic? @ -Acute Uncomplicated (without systemic symptoms) or Complicated (systemic symptoms)? @ -Uncomplicated Side effects of treatment? @ -None Exacerbation, Progression, or Severe Exacerbation] @ -Not applicable Poses a threat to life or bodily function? @ -No Return precautions reviewed in depth, the patient is instructed to return to the emergency department with any new, worsening, or concerning symptoms. Patient verbalized understanding. This case was discussed in detail with the attending ED physician, Dr. Flanagan. Presentation, findings, and treatment plan discussed in detail as well. - Lab Data Result diagrams: 10/20/22 23:44 10/20/22 23:44 Lab Results 10/20/22 10/20/22 Range/Units 23:44 23:44 WBC 13.0 H (3.8-10.6) k/uL RBC 5.61 (4.30-5.90) m/uL Hgb 16.5 (13.0-17.5) gm/dL Hct 47.3 (39.0-53.0) % MCV 84.2 (80.0-100.0) fL MCH 29.3 (25.0-35.0) pg MCHC 34.8 (31.0-37.0) g/dL RDW 12.3 (11.5-15.5) % Plt Count 284 (150-450) k/uL MPV 6.7 Neutrophils % 68 % Lymphocytes % 24 % Monocytes % 4 % Eosinophils % 2 % Basophils % 1 % Neutrophils # 8.8 H (1.3-7.7) k/uL Lymphocytes # 3.1 (1.0-4.8) k/uL Monocytes # 0.6 (0-1.0) k/uL Eosinophils # 0.3 (0-0.7) k/uL Basophils # 0.1 (0-0.2) k/uL ESR 2 (0-15) mm/hr Sodium 142 (137-145) mmol/L Potassium 4.1 (3.5-5.1) mmol/L Chloride 106 (98-107) mmol/L Carbon Dioxide 27 (22-30) mmol/L Anion Gap 9 mmol/L BUN 17 (9-20) mg/dL Creatinine 0.70 (0.66-1.25) mg/dL Est GFR (CKD-EPI)AfAm >90 (>60 ml/min/1.73 sqM) Est GFR (CKD-EPI)NonAf >90 (>60 ml/min/1.73 sqM) Glucose 101 H (74-99) mg/dL Calcium 9.2 (8.4-10.2) mg/dL Total Bilirubin 0.7 (0.2-1.3) mg/dL AST 23 (17-59) U/L ALT 22 (4-49) U/L Alkaline Phosphatase 73 (38-126) U/L C-Reactive Protein <0.5 (<1.0) mg/dL Total Protein 7.4 (6.3-8.2) g/dL Albumin 4.5 (3.5-5.0) g/dL Amylase 69 (30-110) U/L Lipase 75 (23-300) U/L - Radiology Data Radiology results: report reviewed, image reviewed Disposition Clinical Impression: Headache, Nausea and vomiting Disposition: HOME SELF-CARE Instructions (If sedation given, give patient instructions): Acute Headache (ED), Acute Nausea and Vomiting (ED) Additional Instructions: Return to the emergency department with any new, worsening, or concerning symptoms. Alternate with ibuprofen and Tylenol as needed for pain relief. Take the Zofran up to every 8 hours as needed for nausea and vomiting. Slowly advance your diet as tolerated and remain well-hydrated. Follow up with your primary care provider in 1-2 days. Is patient prescribed a controlled substance at d/c from ED?: No Referrals: Gordon Restrepo MD [Primary Care Provider] - 1-2 days
[2022-10-21 00:06] LABS: ALT 22 U/L (4-49); AST 23 U/L (17-59); African American GFR (CKD) >90 (>60 ml/min/1.73 sqM); Albumin 4.5 g/dL (3.5-5.0); Alkaline Phosphatase 73 U/L (38-126); Amylase 69 U/L (30-110); Anion Gap 9 mmol/L; Blood Urea Nitrogen 17 mg/dL (9-20); C Reactive Protein <0.5 mg/dL (<1.0); Calcium 9.2 mg/dL (8.4-10.2); Carbon Dioxide 27 mmol/L (22-30); Chloride 106 mmol/L (98-107); Glucose 101 mg/dL (74-99); Lipase 75 U/L (23-300); Non-African American GFR(CKD) >90 (>60 ml/min/1.73 sqM); Potassium 4.1 mmol/L (3.5-5.1); Sodium 142 mmol/L (137-145); Total Bilirubin 0.7 mg/dL (0.2-1.3); Total Protein 7.4 g/dL (6.3-8.2)
[2022-10-21 00:31] VITALS: RESP 18
[2022-10-21 00:44] LABS: Erythrocyte Sedimentation Rate 2 mm/hr (0-15)
[2022-10-21] MEDS ORDERED: ACETAMINOPHEN TAB 500 MG TAB PO STA (01:14)
[2022-10-21] MEDS ORDERED: MAGNESIUM SULFATE-D5W PMX 1 GM in DEXTROSE/WATER 1 100ML.BAG IVPB ONE (01:15)
--- NOTE | 2022-10-21 03:57 | CT ---
EXAM: CT Head Without Intravenous Contrast CLINICAL HISTORY: ITS.REASON CT Reason: Thunderclap headache TECHNIQUE: Axial computed tomography images of the head/brain without intravenous contrast. CTDI is 49.27 mGy and DLP is 1099.4 mGy-cm. This CT exam was performed using one or more of the following dose reduction techniques: automated exposure control, adjustment of the mA and/or kV according to patient size, and/or use of iterative reconstruction technique. COMPARISON: No relevant prior studies available. FINDINGS: Brain: No hemorrhage or mass effect. Ventricles: No hydrocephalus. Bones/joints: Unremarkable. Soft tissues: Unremarkable. Sinuses: No air fluid level. Mild right maxillary mucosal thickening. Mastoid air cells: Clear. IMPRESSION: No acute hemorrhage, hydrocephalus, or mass effect.
[2022-10-21] MEDS ORDERED: ONDANSETRON 4 MG ODT STARTER PACK 2 TAB BTL PO STA (04:13)
[2022-10-21] MEDS ORDERED: KETOROLAC 15 MG/ML 1 ML VIAL IVP STA (04:13)
[2022-10-21] MEDS ORDERED: METOCLOPRAMIDE 5 MG/ML 2 ML VIAL IVP STA (04:13)
[2022-10-21 04:37] VITALS: BP 116/67; PULSE 57
== END 2022-10-21 04:37 | disposition home or self-care (01) ==
LOC: EC 21:10
DX: R51.9 Headache, unspecified (principal); R11.2 Nausea with vomiting, unspecified; F90.9 Attention-deficit hyperactivity disorder, unspecified type; F12.90 Cannabis use, unspecified, uncomplicated; Z87.891 Personal history of nicotine dependence; Z91.030 Bee allergy status
CPT/HCPCS: 99284; 96365; 96366; 96375 ×4; 96376 ×2; 96361; 36415; 80053; 85652; 82150; 83690; 85025; 86140; 70450; J1200; J1100; J2765; J3475; J1885; S0119

== ENCOUNTER 2023-06-27 09:29 | Emergency (ER) | payer OTHER ==
[2023-06-27 09:57] VITALS: RESP 18; TEMP 97.8
[2023-06-27] MEDS ORDERED: ONDANSETRON 4 MG/2 ML VIAL IVP STA (10:14)
[2023-06-27] MEDS ORDERED: SODIUM CHLORIDE 0.9% 1,000 ML IV STA (10:14)
[2023-06-27] MEDS ORDERED: DICYCLOMINE 10 MG/ML 2 ML AMP IM STA (10:14)
[2023-06-27] MEDS ORDERED: FAMOTIDINE 20 MG/2 ML VIAL IV STA (10:15)
--- NOTE | 2023-06-27 10:16 | ED ---
General Adult HPI - General Chief complaint: Abdominal Pain Stated complaint: stomach pain Time Seen by Provider: 06/27/23 10:02 Source: patient, RN notes reviewed Mode of arrival: ambulatory Limitations: no limitations - History of Present Illness Initial comments: Patient is a pleasant 22-year-old male presenting to the emergency Department with concerns for abdominal discomfort and diarrhea. Onset of symptoms was 2-3 days ago. Patient does have some sinus congestion and mild cough. Patient did vomit once. Patient has had diarrhea. No fever. - Related Data Previous Rx's Medication Instructions Recorded Paliperidone IM [Invega Sustenna] 156 mg IM QMONTHLY #1 ml 04/03/23 Paliperidone [Invega] 6 mg PO HS 3 Days #3 tab 04/03/23 hydrOXYzine pamoate [Vistaril] 50 mg PO DAILY PRN 15 Days #30 cap 04/03/23 traZODone HCL [Desyrel] 50 mg PO HS 30 Days #30 tab 04/03/23 Dicyclomine [Bentyl] 20 mg PO QID PRN #15 tablet 06/27/23 Allergies Allergy/AdvReac Type Severity Reaction Status Date / Time venom-honey bee Allergy Anaphylaxis Verified 06/27/23 09:45 [bee venom (honey bee)] Review of Systems ROS Statement: Those systems with pertinent positive or pertinent negative responses have been documented in the HPI. ROS Other: All systems not noted in ROS Statement are negative. Constitutional: Denies: fever, chills Eyes: Denies: eye pain ENT: Reports: congestion Respiratory: Reports: cough. Denies: dyspnea Cardiovascular: Denies: chest pain Endocrine: Denies: fatigue Gastrointestinal: Reports: abdominal pain, nausea, vomiting, diarrhea Genitourinary: Denies: dysuria Musculoskeletal: Denies: back pain Skin: Denies: rash Neurological: Denies: weakness Past Medical History Past Medical History: No Reported History Additional Past Medical History / Comment(s): ADHD History of Any Multi-Drug Resistant Organisms: None Reported Past Surgical History: Ear Surgery, Orthopedic Surgery Additional Past Surgical History / Comment(s): 2 R meniscus repairs tubes in ears as child. Past Anesthesia/Blood Transfusion Reactions: No Reported Reaction Past Psychological History: ADD/ADHD, PTSD Smoking Status: Former smoker Past Alcohol Use History: Rare Past Drug Use History: Marijuana - Past Family History Father Family Medical History: Unable to Obtain Mother Family Medical History: Cancer General Exam Limitations: no limitations General appearance: alert, in no apparent distress Head exam: Present: normocephalic Eye exam: Present: normal appearance ENT exam: Present: normal oropharynx Neck exam: Present: normal inspection. Absent: tenderness, meningismus Respiratory exam: Present: normal lung sounds bilaterally Cardiovascular Exam: Present: regular rate, normal rhythm GI/Abdominal exam: Present: soft, tenderness (Mild epigastric tenderness), normal bowel sounds. Absent: distended, guarding, rebound, rigid, pulsatile mass Extremities exam: Present: normal inspection Neurological exam: Present: alert Psychiatric exam: Present: normal affect, normal mood Skin exam: Present: normal color Course Vital Signs 06/27/23 09:43 Temperature 97.8 F Pulse Rate 72 Respiratory 18 Rate Blood Pressure 124/78 O2 Sat by Pulse 98 Oximetry Medical Decision Making - Medical Decision Making Was pt. sent in by a medical professional or institution (, PA, AMUSEMENT CENTRE MANAGER, urgent care, hospital, or [facility]...) When possible be specific @ -No Did you speak to anyone other than the patient for history (EMS, parent, family, police, friend...)? What history was obtained from this source @ -No Did you review nursing and triage notes (agree or disagree)? Why? @ -I reviewed and agree with nursing and triage notes Were old charts reviewed (outside hosp., previous admission, EMS record, old EKG, old radiological studies, urgent care reports/EKG's, [facility] records)? Report findings @ -No old charts were reviewed Differential Diagnosis (chest pain, altered mental status, abdominal pain women, abdominal pain men, vaginal bleeding, weakness, fever, dyspnea, syncope, headache, dizziness, GI bleed, back pain, seizure, CVA, palpatations, mental health, musculoskeletal)? @ -Differential Abdominal Pain Men: Appendicitis, cholecystitis, diverticulosis, ischemic bowel, pancreatitis, hepatitis, UTI, gastroenteritis, AAA, incarcerated hernia, bowel obstruction, constipation, inflammatory bowel, hepatitis, peptic ulcer disease, splenic infarction, perforated viscus, testicular torsion, this is not meant to be an all-inclusive list EKG interpreted by me (3pts min.). @ -As above X-rays interpreted by me (1pt min.). @ -Abdominal x-ray shows no acute process CT interpreted by me (1pt min.). @ -None done U/S interpreted by me (1pt. min.). @ -None done What testing was considered but not performed or refused? (CT, X-rays, U/S, lab s)? Why? @ -None What meds were considered but not given or refused? Why? @ -None Did you discuss the management of the patient with other professionals (professionals i.e. DrFadumo, PA, AMUSEMENT CENTRE MANAGER, lab, RT, psych nurse, marriage and family social worker, lasting room machine operator, teacher, infantry weapons officer, shoe parts caser)? Give summary @ -No Was smoking cessation discussed for >3mins.? @ -No Was critical care preformed (if so, how long)? @ -No Were there social determinants of health that impacted care today? How? (Homelessness, low income, unemployed, alcoholism, drug addiction, transportation, low edu. Level, literacy, decrease access to med. care, [facility], rehab)? @ -No Was there de-escalation of care discussed even if they declined (Discuss DNR or withdrawal of care, Hospice)? DNR status @ -No What co-morbidities impacted this encounter? (DM, HTN, Smoking, COPD, CAD, Cancer, CVA, ARF, Chemo, Hep., AIDS, mental health diagnosis, sleep apnea, morbid obesity)? @ -None Was patient admitted / discharged? Hospital course, mention meds given and route, prescriptions, significant lab abnormalities, going to OR and other pertinent info. @ -Patient reevaluated and feeling better. Patient requesting discharge home. Abdomen soft and nontender. Patient updated on results and need for follow-up. Undiagnosed new problem with uncertain prognosis? @ -No Drug Therapy requiring intensive monitoring for toxicity (Heparin, Nitro, Insulin, Cardizem)? @ -No Were any procedures done? @ -No Diagnosis/symptom? @ -diarrhea Acute, or Chronic, or Acute on Chronic? @ -Acute Uncomplicated (without systemic symptoms) or Complicated (systemic symptoms)? @ -default Side effects of treatment? @ -No Exacerbation, Progression, or Severe Exacerbation? @ -No Poses a threat to life or bodily function? How? (Chest pain, USA, VT, pneumonia, PE, COPD, DKA, ARF, appy, cholecystitis, CVA, Diverticulitis, Homicidal, Suicidal, threat to staff... and all critical care pts) @ -No - Lab Data Result diagrams: 06/27/23 10:50 06/27/23 10:50 Lab Results 06/27/23 06/27/23 06/27/23 Range/Units 09:47 10:50 10:50 WBC 5.3 (3.8-10.6) k/uL RBC 4.97 (4.30-5.90) m/uL Hgb 14.9 (13.0-17.5) gm/dL Hct 42.9 (39.0-53.0) % MCV 86.3 (80.0-100.0) fL MCH 30.1 (25.0-35.0) pg MCHC 34.8 (31.0-37.0) g/dL RDW 12.1 (11.5-15.5) % Plt Count 252 (150-450) k/uL MPV 7.2 Neutrophils % 51 % Lymphocytes % 36 % Monocytes % 7 % Eosinophils % 4 % Basophils % 1 % Neutrophils # 2.7 (1.3-7.7) k/uL Lymphocytes # 1.9 (1.0-4.8) k/uL Monocytes # 0.4 (0-1.0) k/uL Eosinophils # 0.2 (0-0.7) k/uL Basophils # 0.0 (0-0.2) k/uL Sodium 139 (137-145) mmol/L Potassium 4.1 (3.5-5.1) mmol/L Chloride 107 (98-107) mmol/L Carbon Dioxide 22 (22-30) mmol/L Anion Gap 10 mmol/L BUN 18 (9-20) mg/dL Creatinine 0.68 (0.66-1.25) mg/dL Est GFR (CKD-EPI)AfAm >90 (>60 ml/min/1.73 sqM) Est GFR (CKD-EPI)NonAf >90 (>60 ml/min/1.73 sqM) Glucose 106 H (74-99) mg/dL Calcium 8.8 (8.4-10.2) mg/dL Total Bilirubin 0.6 (0.2-1.3) mg/dL AST 29 (17-59) U/L ALT 28 (4-49) U/L Alkaline Phosphatase 78 (38-126) U/L Total Protein 6.5 (6.3-8.2) g/dL Albumin 3.9 (3.5-5.0) g/dL Amylase 63 (30-110) U/L Lipase 98 (23-300) U/L Influenza Type A (PCR) Not Detected (Not Detectd) Influenza Type B (PCR) Not Detected (Not Detectd) RSV (PCR) Not Detected (Not Detectd) SARS-CoV-2 (PCR) Not Detected (Not Detectd) Disposition Clinical Impression: Diarrhea Disposition: HOME SELF-CARE Condition: Stable Instructions (If sedation given, give patient instructions): Acute Diarrhea (ED) Additional Instructions: Prescription sent to pharmacy. Please do follow-up with primary care physician in the next one or 2 days for recheck. Return for not tolerating fluids, increased pain, fever, worsening or changing symptoms or other concerns. Prescriptions: Dicyclomine [Bentyl] 20 mg PO QID PRN #15 tablet PRN Reason: Pain Is patient prescribed a controlled substance at d/c from ED?: No Referrals: Gordon Restrepo MD [Primary Care Provider] - 1-2 days Time of Disposition: 13:44
--- NOTE | 2023-06-27 10:57 | XR ---
EXAMINATION TYPE: XR KUB DATE OF EXAM: 06/27/2023 10:39 AM CLINICAL INDICATION:Male, 22 years old with history of abdominal pain; COMPARISON: None. TECHNIQUE: One radiographic view of the abdomen was obtained. FINDINGS: The bowel gas pattern is nonspecific without dilated loops of small or large bowel. There i s no evidence for organomegaly or pneumoperitoneum. The osseous structures are intact. No abnormal calcifications are present. Fecal material and gas are demonstrated throughout the colon and rectum. IMPRESSION: Nonspecific bowel gas pattern without radiographic evidence for acute process.
[2023-06-27 11:18] LABS: Basophils % (A) 1 %; Eosinophils # (A) 0.2 k/uL (0-0.7); Eosinophils % (A) 4 %; HCT 42.9 % (39.0-53.0); HGB 14.9 gm/dL (13.0-17.5); Lymphocytes # (A) 1.9 k/uL (1.0-4.8); Lymphocytes % (A) 36 %; MCH 30.1 pg (25.0-35.0); MCHC 34.8 g/dL (31.0-37.0); MCV 86.3 fL (80.0-100.0); Mean Platelet Volume 7.2; Monocytes # (A) 0.4 k/uL (0-1.0); Monocytes % (A) 7 %; Neutrophils # (A) 2.7 k/uL (1.3-7.7); Neutrophils % (A) 51 %; Platelet Count 252 k/uL (150-450); RBC 4.97 m/uL (4.30-5.90); RDW 12.1 % (11.5-15.5); WBC 5.3 k/uL (3.8-10.6)
[2023-06-27 12:32] LABS: ALT 28 U/L (4-49); AST 29 U/L (17-59); African American GFR (CKD) >90 (>60 ml/min/1.73 sqM); Albumin 3.9 g/dL (3.5-5.0); Alkaline Phosphatase 78 U/L (38-126); Amylase 63 U/L (30-110); Anion Gap 10 mmol/L; Blood Urea Nitrogen 18 mg/dL (9-20); Calcium 8.8 mg/dL (8.4-10.2); Carbon Dioxide 22 mmol/L (22-30); Chloride 107 mmol/L (98-107); Glucose 106 mg/dL (74-99); Lipase 98 U/L (23-300); Non-African American GFR(CKD) >90 (>60 ml/min/1.73 sqM); Potassium 4.1 mmol/L (3.5-5.1); Sodium 139 mmol/L (137-145); Total Bilirubin 0.6 mg/dL (0.2-1.3); Total Protein 6.5 g/dL (6.3-8.2)
[2023-06-27 14:03] VITALS: BP 100/63; PULSE 62
== END 2023-06-27 13:58 | disposition home or self-care (01) ==
LOC: EC 09:29
DX: R19.7 Diarrhea, unspecified (principal); F12.90 Cannabis use, unspecified, uncomplicated; Z87.891 Personal history of nicotine dependence; Z91.030 Bee allergy status; Z20.822 Contact with and (suspected) exposure to COVID-19
CPT/HCPCS: 36415; 80053; 82150; 83690; 85025; 87636; 74018; 99284; 96374; 96375; 96372; 96361; J0500; J2405; J3490

== ENCOUNTER 2023-07-03 10:21 | Emergency (ER) | payer OTHER ==
[2023-07-03] MEDS ORDERED: SODIUM CHLORIDE 0.9% 1,000 ML IV ONE (10:41)
[2023-07-03] MEDS ORDERED: ONDANSETRON 4 MG/2 ML VIAL IVP STA (10:41)
[2023-07-03 11:44] LABS: Basophils % (A) 1 %; Eosinophils # (A) 0.1 k/uL (0-0.7); Eosinophils % (A) 2 %; HCT 47.3 % (39.0-53.0); HGB 16.8 gm/dL (13.0-17.5); Lymphocytes # (A) 1.1 k/uL (1.0-4.8); Lymphocytes % (A) 20 %; MCHC 35.5 g/dL (31.0-37.0); MCV 84.5 fL (80.0-100.0); Mean Platelet Volume 6.7; Monocytes # (A) 0.6 k/uL (0-1.0); Monocytes % (A) 11 %; Neutrophils # (A) 3.7 k/uL (1.3-7.7); Neutrophils % (A) 65 %; Platelet Count 245 k/uL (150-450); RBC 5.59 m/uL (4.30-5.90); WBC 5.6 k/uL (3.8-10.6)
[2023-07-03 11:50] LABS: Appearance,Urine Clear (Clear); Bilirubin,Urine Negative (Negative); Blood,Urine Negative (Negative); Color,Urine Yellow; Glucose,Urine (UA) Negative (Negative); Ketones,Urine 1+ (Negative); Leukocyte Esterase,Urine Negative (Negative); Nitrite,Urine Negative (Negative); Protein,Urine Trace (Negative); Specific Gravity,Urine 1.025 (1.001-1.035); Urobilinogen,Urine <2.0 mg/dL (<2.0)
[2023-07-03 12:08] LABS: ALT 36 U/L (4-49); AST 30 U/L (17-59); African American GFR (CKD) >90 (>60 ml/min/1.73 sqM); Albumin 4.6 g/dL (3.5-5.0); Alkaline Phosphatase 70 U/L (38-126); Anion Gap 15 mmol/L; Blood Urea Nitrogen 20 mg/dL (9-20); Calcium 9.1 mg/dL (8.4-10.2); Carbon Dioxide 22 mmol/L (22-30); Chloride 102 mmol/L (98-107); Glucose 95 mg/dL (74-99); Lipase 44 U/L (23-300); Non-African American GFR(CKD) >90 (>60 ml/min/1.73 sqM); Potassium 3.7 mmol/L (3.5-5.1); Sodium 139 mmol/L (137-145); Total Bilirubin 1.1 mg/dL (0.2-1.3); Total Protein 7.6 g/dL (6.3-8.2)
--- NOTE | 2023-07-03 13:03 | US ---
EXAMINATION TYPE: US gallbladder DATE OF EXAM: 07/03/2023 COMPARISON: US 10/14/2022 CLINICAL INDICATION: Male, 22 years old with history of RUQ pain; RUQ pain x 5 days. TECHNIQUE: Multiple sonographic images of the right upper quadrant are obtained. FINDINGS: EXAM MEASUREMENTS: Liver Length: 18.0 cm Gallbladder Wall: 0.20 cm CBD: 0.17 cm Right Kidney: 11.5 x 5.6 x 4.3 cm ROLLER PRINTER NOTES: Limited due to gas. Pancreas: Head and tail were not well seen due to gas. Liver: Appears mildly enlarged. Slight increased echogenicity. No focal lesion. Gallbladder: Appears wnl, folds seen. Evidence for sonographic Krishna's sign: No CBD: Portions seen appear wnl Right Kidney: No hydronephrosis or masses seen IMPRESSION: 1. Mild hepatomegaly. There may be mild fatty infiltration of the liver. 2. No gallstones or biliary ductal dilatation.
[2023-07-03] MEDS ORDERED: AMOXICILLIN 875 MG TAB PO STA (13:43)
--- NOTE | 2023-07-03 13:57 | ED ---
General Adult HPI - General Chief complaint: Nausea/Vomiting/Diarrhea Stated complaint: Vomiting, diarrhea Time Seen by Provider: 07/03/23 10:40 Source: patient, RN notes reviewed Mode of arrival: ambulatory - History of Present Illness Initial comments: 22-year-old male presents the emergency department with a chief complaint of nausea and vomiting. Patient was seen and evaluated here on 06/27/2023 for the same. He had a unremarkable workup. Patient reports no r esolution of symptoms. He has been taking Zofran at home with symptomatic improvement. He reports a fever last night. Complaining of right upper quadrant abdominal pain. Denies any recent known sick contacts. Patient also reports sore throat. - Related Data Home Medications Medication Instructions Recorded Confirmed Dicyclomine [Bentyl] 20 mg PO QID PRN 07/03/23 07/03/23 Previous Rx's Medication Instructions Recorded Amoxicillin 875 mg PO Q12HR #20 tablet 07/03/23 Ondansetron Odt [Zofran Odt] 4 mg PO Q8HR PRN #10 tab 07/03/23 Allergies Allergy/AdvReac Type Severity Reaction Status Date / Time venom-honey bee Allergy Anaphylaxis Verified 07/03/23 11:56 [bee venom (honey bee)] Review of Systems ROS Statement: Those systems with pertinent positive or pertinent negative responses have been documented in the HPI. ROS Other: All systems not noted in ROS Statement are negative. Past Medical History Past Medical History: No Reported History Additional Past Medical History / Comment(s): ADHD History of Any Multi-Drug Resistant Organisms: None Reported Past Surgical History: Ear Surgery, Orthopedic Surgery Additional Past Surgical History / Comment(s): 2 R meniscus repairs tubes in ears as child. Past Anesthesia/Blood Transfusion Reactions: No Reported Reaction Past Psychological History: ADD/ADHD, PTSD Smoking Status: Former smoker Past Alcohol Use History: Rare Past Drug Use History: Marijuana - Past Family History Father Family Medical History: Unable to Obtain Mother Family Medical History: Cancer General Exam - General Exam Comments Initial Comments: General: Alert, in no acute distress Head: atraumatic normocephalic. Eyes PERRL, EOMI intact, mucous membranes moist Respiratory: Lungs clear to auscultation bilaterally Cardiovascular: Regular rate and rhythm Abdominal: Soft without guarding or rebound Extremities: Normal inspection with full range of motion and normal capillary refill Neuroogic: alert and oriented 3, CN II-XII intact, able to ambulate with steady gait Skin: warm dry and intact with normal color Course Vital Signs 07/03/23 07/03/23 07/03/23 10:26 12:00 14:16 Temperature 98.7 F 99.3 F Pulse Rate 87 71 82 Respiratory 18 20 18 Rate Blood Pressure 115/74 119/71 117/74 O2 Sat by Pulse 98 98 98 Oximetry - Reevaluation(s) Reevaluation #1: 07/03/23 13:42 Reevaluated updated on results. Agreeable with the plan for discharge home. Medical Decision Making - Medical Decision Making Was pt. sent in by a medical professional or institution (, PA, ANALYSIS REPORTING DEVELOPER, urgent care, hospital, or penitentiary...) When possible be specific @ -[No] Did you speak to anyone other than the patient for history (EMS, parent, family, police, friend...)? What history was obtained from this source @ -[No] Did you review nursing and triage notes (agree or disagree)? Why? @ -[I reviewed and agree with nursing and triage notes] Were old charts reviewed (outside hosp., previous admission, EMS record, old EKG, old radiological studies, urgent care reports/EKG's, penitentiary records)? Report findings @ -06/27/2023 which includes unremarkable workup patient was given Zofran upon discharge Differential Diagnosis (chest pain, altered mental status, abdominal pain women, abdominal pain men, vaginal bleeding, weakness, fever, dyspnea, syncope, headache, dizziness, GI bleed, back pain, seizure, CVA, palpatations, mental health, musculoskeletal)? @ -[not applicable] EKG interpreted by me (3pts min.). @ -[As above] X-rays interpreted by me (1pt min.). @ -[None done] CT interpreted by me (1pt min.). @ -[None done] U/S interpreted by me (1pt. min.). @R ultrasound does not reveal any cholelithiasis or biliary sludge What testing was considered but not performed or refused? (CT, X-rays, U/S, labs)? Why? @ -[None] What meds were considered but not given or refused? Why? @ -[None] Did you discuss the management of the patient with other professionals (professionals i.e. , PA, ANALYSIS REPORTING DEVELOPER, lab, RT, psych nurse, social contact worker, environmental engineering professor, teacher, combatant diver officer, renal case manager)? Give summary @ -[No] Was smoking cessation discussed for >3mins.? @ -[No] Was critical care preformed (if so, how long)? @ -[No] Were there social determinants of health that impacted care today? How? (Homelessness, low income, unemployed, alcoholism, drug addiction, transportation, low edu. Level, literacy, decrease access to med. care, fpc, rehab)? @ -[No] Was there de-escalation of care discussed even if they declined (Discuss DNR or withdrawal of care, Hospice)? DNR status @ -[No] What co-morbidities impacted this encounter? (DM, HTN, Smoking, COPD, CAD, Canc er, CVA, ARF, Chemo, Hep., AIDS, mental health diagnosis, sleep apnea, morbid obesity)? @ -[None] Was patient admitted / discharged? Hospital course, mention meds given and route, prescriptions, significant lab abnormalities, going to OR and other pertinent info. @ Discharged. This is a pleasant 22-year-old male presents emergency Department with nausea and vomiting. Patient had a thorough history and physical exam performed. Exam essentially unremarkable. Patient had laboratory studies and ultrasound which were unremarkable. Patient is Covid and strep positive. I discussed results in detail with the patient verbalized understanding all questions addressed. He was provided single dose of amoxicillin in the emergency department. He was provided a prescription for amoxicillin with recommend close follow-up with PCP in 1-2 days. Case discussed with Dr. Schultz, ED attending who agrees with plan of care Undiagnosed new problem with uncertain prognosis? @ -[No] Drug Therapy requiring intensive monitoring for toxicity (Heparin, Nitro, Insulin, Cardizem)? @ -[No] Were any procedures done? @ -[No] Diagnosis/symptom? @ -COVID Positive - Strep Positive -Nausea and Vomiting Acute, or Chronic, or Acute on Chronic? @ -Acute Uncomplicated (without systemic symptoms) or Complicated (systemic symptoms)? @ -Uncomplicated Side effects of treatment? @ -[No] Exacerbation, Progression, or Severe Exacerbation? @ -[No] Poses a threat to life or bodily function? How? (Chest pain, [place], [place], pneumonia, PE, COPD, DKA, ARF, appy, cholecystitis, CVA, Diverticulitis, Homicidal, Suicidal, threat to staff... and all critical care pts) @ -Low likelihood - Lab Data Result diagrams: 07/03/23 11:28 07/03/23 11:28 Lab Results 07/03/23 07/03/23 07/03/23 Range/Units 11:28 11: 11:28 WBC 5.6 (3.8-10.6) k/uL RBC 5.59 (4.30-5.90) m/uL Hgb 16.8 (13.0-17.5) gm/dL Hct 47.3 (39.0-53.0) % MCV 84.5 (80.0-100.0) fL MCH 30.0 (25.0-35.0) pg MCHC 35.5 (31.0-37.0) g/dL RDW 12.0 (11.5-15.5) % Plt Count 245 (150-450) k/uL MPV 6.7 Neutrophils % 65 % Lymphocytes % 20 % Monocytes % 11 % Eosinophils % 2 % Basophils % 1 % Neutrophils # 3.7 (1.3-7.7) k/uL Lymphocytes # 1.1 (1.0-4.8) k/uL Monocytes # 0.6 (0-1.0) k/uL Eosinophils # 0.1 (0-0.7) k/uL Basophils # 0.0 (0-0.2) k/uL Sodium 139 (137-145) mmol/L Potassium 3.7 (3.5-5.1) mmol/L Chloride 102 (98-107) mmol/L Carbon Dioxide 22 (22-30) mmol/L Anion Gap 15 mmol/L BUN 20 (9-20) mg/dL Creatinine 0.87 (0.66-1.25) mg/dL Est GFR (CKD-EPI)AfAm >90 (>60 ml/min/1.73 sqM) Est GFR (CKD-EPI)NonAf >90 (>60 ml/min/1.73 sqM) Glucose 95 (74-99) mg/dL Calcium 9.1 (8.4-10.2) mg/dL Total Bilirubin 1.1 (0.2-1.3) mg/dL AST 30 (17-59) U/L ALT 36 (4-49) U/L Alkaline Phosphatase 70 (38-126) U/L Total Protein 7.6 (6.3-8.2) g/dL Albumin 4.6 (3.5-5.0) g/dL Lipase 44 (23-300) U/L Urine Color Yellow Urine Appearance Clear (Clear) Urine pH 6.0 (5.0-8.0) Ur Specific [place] 1.025 (1.001-1.035) Urine Protein Trace H (Negative) Urine Glucose (UA) Negative (Negative) Urine Ketones 1+ H (Negative) Urine Blood Negative (Negative) Urine Nitrite Negative (Negative) Urine Bilirubin Negative (Negative) Urine Urobilinogen <2.0 (<2.0) mg/dL Ur Leukocyte Esterase Negative (Negative) Influenza Type A (PCR) (Not Detectd) Influenza Type B (PCR) (Not Detectd) RSV (PCR) (Not Detectd) SARS-CoV-2 (PCR) (Not Detectd) Group A Strep (PCR) (Not Detectd) 07/03/23 07/03/23 Range/Units 11:53 11:58 WBC (3.8-10.6) k/uL RBC (4.30-5.90) m/uL Hgb (13.0-17.5) gm/dL Hct (39.0-53.0) % MCV (80.0-100.0) fL MCH (25.0-35.0) pg MCHC (31.0-37.0) g/dL RDW (11.5-15.5) % Plt Count (150-450) k/uL MPV Neutrophils % % Lymphocytes % % Monocytes % % Eosinophils % % Basophils % % Neutrophils # (1.3-7.7) k/uL Lymphocytes # (1.0-4.8) k/uL Monocytes # (0-1.0) k/uL Eosinophils # (0-0.7) k/uL Basophils # (0-0.2) k/uL Sodium (137-145) mmol/L Potassium (3.5-5.1) mmol/L Chloride (98-107) mmol/L Carbon Dioxide (22-30) mmol/L Anion Gap mmol/L BUN (9-20) mg/dL Creatinine (0.66-1.25) mg/dL Est GFR (CKD-EPI)AfAm (>60 ml/min/1.73 sqM) Est GFR (CKD-EPI)NonAf (>60 ml/min/1.73 sqM) Glucose (74-99) mg/dL Calcium (8.4-10.2) mg/dL Total Bilirubin (0.2-1.3) mg/dL AST (17-59) U/L ALT (4-49) U/L Alkaline Phosphatase (38-126) U/L Total Protein (6.3-8.2) g/dL Albumin (3.5-5.0) g/dL Lipase (23-300) U/L Urine Color Urine Appearance (Clear) Urine pH (5.0-8.0) Ur Specific [place] (1.001-1.035) Urine Protein (Negative) Urine Glucose (UA) (Negative) Urine Ketones (Negative) Urine Blood (Negative) Urine Nitrite (Negative) Urine Bilirubin (Negative) Urine Urobilinogen (<2.0) mg/dL Ur Leukocyte Esterase (Negative) Influenza Type A (PCR) Not Detected (Not Detectd) Influenza Type B (PCR) Not Detected (Not Detectd) RSV (PCR) Not Detected (Not Detectd) SARS-CoV-2 (PCR) Detected A (Not Detectd) Group A Strep (PCR) DETECTED A (Not Detectd) Disposition Clinical Impression: Strep throat, COVID-19 Disposition: HOME SELF-CARE Condition: Stable Instructions (If sedation given, give patient instructions): Strep Throat (DC), Acute Nausea and Vomiting (ED), Acute Nausea and Vomiting (DC), COVID-19 (Coronavirus Disease 2019) (ED) Additional Instructions: PLease take the antibiotics as prescribed Please take zofran for nausea Reason return if worsening pain or symptoms Prescriptions: Amoxicillin 875 mg PO Q12HR #20 tablet Ondansetron Odt [Zofran Odt] 4 mg PO Q8HR PRN #10 tab PRN Reason: Nausea Is patient prescribed a controlled substance at d/c from ED?: No Referrals: Gordon Restrepo MD [Primary Care Provider] - 1-2 days Time of Disposition: 13:58
[2023-07-03 14:24] VITALS: BP 117/74; PULSE 82; RESP 18; TEMP 99.3
== END 2023-07-03 14:16 | disposition home or self-care (01) ==
LOC: EC 10:21
DX: U07.1 COVID-19 (principal); J02.0 Streptococcal pharyngitis; B95.0 Streptococcus, group A, as the cause of diseases classified elsewhere; F12.90 Cannabis use, unspecified, uncomplicated; Z87.891 Personal history of nicotine dependence; Z86.59 Personal history of other mental and behavioral disorders; Z91.030 Bee allergy status; Z20.822 Contact with and (suspected) exposure to COVID-19
CPT/HCPCS: 99284 ×2; 96374 ×2; 96361 ×2; 36415; 87651; 80053; 83690; 85025; 81003; 87636; 76705; J2405

== ENCOUNTER 2023-07-14 21:49 | Emergency (ER) | payer OTHER ==
[2023-07-14] MEDS ORDERED: KETOROLAC 15 MG/ML 1 ML VIAL IM STA (22:11)
--- NOTE | 2023-07-14 22:13 | ED ---
Chest Pain HPI - General Chief Complaint: Chest Pain Stated Complaint: Chest pain,Sob Time Seen by Provider: 07/14/23 22:11 Source: patient, RN notes reviewed Mode of arrival: wheelchair Limitations: no limitations - History of Present Illness Initial Comments: 22 year old male presents to the emergency department with chest pain and shortness of breath. He reports his symptoms started approximately 30 minutes prior to arrival. He reports that his symptoms occurred at rest. He does report having a nonproductive cough. Denies fever, chills, sore throat or headache. Patient does smoke tobacco products. Patient endorses the pain when takes a deep breath in. - Related Data Home Medications Medication Instructions Recorded Confirmed Dicyclomine [Bentyl] 20 mg PO QID PRN 07/03/23 07/03/23 Previous Rx's Medication Instructions Recorded Amoxicillin 875 mg PO Q12HR #20 tablet 07/03/23 Ondansetron Odt [Zofran Odt] 4 mg PO Q8HR PRN #10 tab 07/03/23 Allergies Allergy/AdvReac Type Severity Reaction Status Date / Time venom-honey bee Allergy Anaphylaxis Verified 07/14/23 21:53 [bee venom (honey bee)] Review of Systems ROS Statement: Those systems with pertinent positive or pertinent negative responses have been documented in the HPI. ROS Other: All systems not noted in ROS Statement are negative. EKG Findings - EKG Comments: EKG Findings:: I interpreted the following: EKG performed at 21:57 rate 80 bpm normal sinus rhythm DC interval 1.3, QRS to 101, QT/QTc 365/401 Past Medical History Past Medical History: No Reported History Additional Past Medical History / Comment(s): ADHD History of Any Multi-Drug Resistant Organisms: None Reported Past Surgical History: Ear Surgery, Orthopedic Surgery Additional Past Surgical History / Comment(s): 2 R meniscus repairs tubes in ears as child. Past Anesthesia/Blood Transfusion Reactions: No Reported Reaction Past Psychological History: ADD/ADHD, PTSD Smoking Status: Former smoker Past Alcohol Use History: Rare Past Drug Use History: Marijuana - Past Family History Father Family Medical History: Unable to Obtain Mother Family Medical History: Cancer General Exam - General Exam Comments Initial Comments: Visual Physical Exam Vital signs reviewed General: Well-appearing, nontoxic, no acute distress. Head: Normocephalic, atraumatic Eyes: PERRLA, EOMI ENT: Airway patent Chest: Nonlabored breathing Skin: No visual rash, normal skin tone Neuro: Alert and oriented 3 Musculoskeletal: No gross abnormalities General: Alert, in no acute distress Head: atraumatic normocephalic. Eyes PERRL, EOMI intact, mucous membranes moist Respiratory: Lungs clear to auscultation bilaterally Cardiovascular: Heart rate regular rate and rhythm Abdominal: Soft without guarding or rebound Extremities: Normal inspection with full range of motion and normal capillary refill Neuroogic: alert and oriented 3, CN II-XII intact, able to ambulate with steady gait Skin: warm dry and intact with normal color Limitations: no limitations Course Vital Signs 07/14/23 21:50 Temperature 98.6 F Pulse Rate 87 Respiratory 20 Rate Blood Pressure 114/70 O2 Sat by Pulse 97 Oximetry - Reevaluation(s) Reevaluation #1: 07/15/23 00:04 Patient reevaluated and updated on results. All questions were answered. Agreeable to plan for discharge home. Chest Pain MDM - MDM Was pt. sent in by a medical professional or institution (, PA, ANODE ADJUSTER, urgent care, hospital, or halfway...) When possible be specific @ -[No] Did you speak to anyone other than the patient for history (EMS, parent, family, police, friend...)? What history was obtained from this source @ -[No] Did you review nursing and triage notes (agree or disagree)? Why? @ -[I reviewed and agree with nursing and triage notes] Were old charts reviewed (outside hosp., previous admission, EMS record, old EKG, old radiological studies, urgent care reports/EKG's, halfway records)? Report findings @ -[No old charts were reviewed] Differential Diagnosis (chest pain, altered mental status, abdominal pain women, abdominal pain men, vaginal bleeding, weakness, fever, dyspnea, syncope, headache, dizziness, GI bleed, back pain, seizure, CVA, palpatations, mental health, musculoskeletal)? @ -[not applicable] EKG interpreted by me (3pts min.). @ -[As above] X-rays interpreted by me (1pt min.). @ -[None done] CT interpreted by me (1pt min.). @ -[None done] U/S interpreted by me (1pt. min.). @ -[None done] What testing was considered but not performed or refused? (CT, X-rays, U/S, labs)? Why? @ -[None] What meds were considered but not given or refused? Why? @ -[None] Did you discuss the management of the patient with other professionals (professionals i.e. , PA, ANODE ADJUSTER, lab, RT, psych nurse, executive secretary social welfare, board mill supervisor, teacher, diplomatic officer, catalytic case operator)? Give summary @ -[No] Was smoking cessation discussed for >3mins.? @ -[No] Was critical care preformed (if so, how long)? @ -[No] Were there social determinants of health that impacted care today? How? (Homelessness, low income, unemployed, alcoholism, drug addiction, transportation, low edu. Level, literacy, decrease access to med. care, [facility], rehab)? @ -[No] Was there de-escalation of care discussed even if they declined (Discuss DNR or withdrawal of care, Hospice)? DNR status @ -[No] What co-morbidities impacted this encounter? (DM, HTN, Smoking, COPD, CAD, Cancer, CVA, ARF, Chemo, Hep., AIDS, mental health diagnosis, sleep apnea, morbid obesity)? @ -[None] Was patient admitted / discharged? Hospital course, mention meds given and route, prescriptions, significant lab abnormalities, going to OR and other pertinent info. @ --Discharged.22-year-old male who presents the emergency department with chest pain. Patient had a thorough history and physical exam performed. There are no neurologic focal deficits. Heart rate is regular rate and rhythm. Lungs are clear to auscultation bilaterally abdomen is soft and nontender, Patient had laboratory studies which were essentially unremarkable cutting troponin and d-dimer testing. Patient is COVID +. I discussed results in detail the patient verbalized understanding all questions were addressed. She was provided 1 L of IV fluids for symptomatic. Return precautions were discussed at length. Educated on the importance of follow-up with Primary Care Doctor in 1-2 days. Discharged in stable condition. Case is discussed with Dr. Tate, ED attending who agrees with plan of care Undiagnosed new problem with uncertain prognosis? @ -[No] Drug Therapy requiring intensive monitoring for toxicity (Heparin, Nitro, Insulin, Cardizem)? @ -[No] Were any procedures done? @ -[No] Diagnosis/symptom? @ -Chest Pain - Post Covid Syndrome Acute, or Chronic, or Acute on Chronic? @ -Acute Uncomplicated (without systemic symptoms) or Complicated (systemic symptoms)? @ -Uncomplicated Side effects of treatment? @ -[No] Exacerbation, Progression, or Severe Exacerbation? @ -[No] Poses a threat to life or bodily function? How? (Chest pain, [place], [place], pneumonia, PE, COPD, DKA, ARF, appy, cholecystitis, CVA, Diverticulitis, Homicidal, Suicidal, threat to staff... and all critical care pts) @ -Low likelihood Disposition Clinical Impression: COVID-19, Chest pain Disposition: HOME SELF-CARE Condition: Stable Instructions (If sedation given, give patient instructions): Costochondritis (ED), COVID-19 (Coronavirus Disease 2019) (ED) Additional Instructions: Please return if worsening symptoms, shortness of breath or high fever persists Is patient prescribed a controlled substance at d/c from ED?: No Referrals: Gordon Restrepo MD [Primary Care Provider] - 1-2 days Time of Disposition: 23:54
[2023-07-14 22:14] VITALS: BP 114/70; PULSE 87; RESP 20; TEMP 98.6
[2023-07-14 22:18] LABS: Basophils # (A) 0.1 k/uL (0-0.2); Basophils % (A) 1 %; Eosinophils # (A) 0.3 k/uL (0-0.7); Eosinophils % (A) 3 %; HCT 44.1 % (39.0-53.0); HGB 15.7 gm/dL (13.0-17.5); Lymphocytes # (A) 3.1 k/uL (1.0-4.8); Lymphocytes % (A) 38 %; MCH 30.1 pg (25.0-35.0); MCHC 35.6 g/dL (31.0-37.0); MCV 84.4 fL (80.0-100.0); Mean Platelet Volume 6.7; Monocytes # (A) 0.4 k/uL (0-1.0); Monocytes % (A) 5 %; Neutrophils # (A) 4.3 k/uL (1.3-7.7); Neutrophils % (A) 52 %; Platelet Count 314 k/uL (150-450); RBC 5.23 m/uL (4.30-5.90); RDW 12.4 % (11.5-15.5); WBC 8.2 k/uL (3.8-10.6)
[2023-07-14 22:31] LABS: ALT 30 U/L (4-49); AST 30 U/L (17-59); African American GFR (CKD) >90 (>60 ml/min/1.73 sqM); Albumin 4.5 g/dL (3.5-5.0); Alkaline Phosphatase 75 U/L (38-126); Anion Gap 12 mmol/L; Blood Urea Nitrogen 21 mg/dL (9-20); Calcium 9.7 mg/dL (8.4-10.2); Carbon Dioxide 24 mmol/L (22-30); Chloride 105 mmol/L (98-107); Glucose 121 mg/dL (74-99); Non-African American GFR(CKD) >90 (>60 ml/min/1.73 sqM); Potassium 3.6 mmol/L (3.5-5.1); Sodium 141 mmol/L (137-145); Total Bilirubin 0.8 mg/dL (0.2-1.3); Total Protein 7.4 g/dL (6.3-8.2)
--- NOTE | 2023-07-14 22:40 | XR ---
EXAM: XR Chest, 2 Views CLINICAL HISTORY: ITS.REASON XR Reason: chest pain TECHNIQUE: Frontal and lateral views of the chest. COMPARISON: No relevant prior studies available. FINDINGS: Lungs: Unremarkable. No consolidation. Pleural space: Unremarkable. No pneumothorax. Heart: Unremarkable. No cardiomegaly. Mediastinum: Unremarkable. Normal mediastinal contour. Bones/joints: Unremarkable. No acute fracture. IMPRESSION: Normal chest x-rays.
== END 2023-07-15 01:21 | disposition home or self-care (01) ==
LOC: EC 21:49
DX: U07.1 COVID-19 (principal); F12.90 Cannabis use, unspecified, uncomplicated; Z91.030 Bee allergy status; Z87.891 Personal history of nicotine dependence
CPT/HCPCS: 36415; 93005; 85379; 80053; 84484; 85025; 87636; 71046; 99285; 96372; J1885

== ENCOUNTER 2023-09-01 06:38 | Emergency (ER) | payer OTHER ==
[2023-09-01 07:02] VITALS: TEMP 97.6
--- NOTE | 2023-09-01 07:13 | ED ---
Abdominal Pain HPI - General Chief Complaint: Abdominal Pain Stated Complaint: Vomiting, abdominal pain, sweating Time Seen by Provider: 09/01/23 06:45 Source: patient, RN notes reviewed Mode of arrival: ambulatory Limitations: no limitations - History of Present Illness Initial Comments: 22-year-old male presents emergency department with chief complaint of abdominal pain, nausea vomiting. Symptoms started night he was up most the night vomiting he states pain is located in the right lower quadrant nonradiating he denies any dysuria hematuria no change in bowel habits he reports fever but denies any cough and cold-like symptoms. - Related Data Home Medications Medication Instructions Recorded Confirmed Dicyclomine [Bentyl] 20 mg PO QID PRN 07/03/23 07/03/23 Previous Rx's Medication Instructions Recorded Amoxicillin 875 mg PO Q12HR #20 tablet 07/03/23 Ondansetron Odt [Zofran Odt] 4 mg PO Q8HR PRN #10 tab 07/03/23 Allergies Allergy/AdvReac Type Severity Reaction Status Date / Time venom-honey bee Allergy Anaphylaxis Verified 07/14/23 21:53 [bee venom (honey bee)] Review of Systems ROS Statement: Those systems with pertinent positive or pertinent negative responses have been documented in the HPI. ROS Other: All systems not noted in ROS Statement are negative. Past Medical History Past Medical History: No Reported History Additional Past Medical History / Comment(s): ADHD History of Any Multi-Drug Resistant Organisms: None Reported Past Surgical History: Ear Surgery, Orthopedic Surgery Additional Past Surgical History / Comment(s): 2 R meniscus repairs tubes in ears as child. Past Anesthesia/Blood Transfusion Reactions: No Reported Reaction Past Psychological History: ADD/ADHD, PTSD Smoking Status: Former smoker Past Alcohol Use History: Rare Past Drug Use History: Marijuana - Past Family History Father Family Medical History: Unable to Obtain Mother Family Medical History: Cancer General Exam Limitations: no limitations General appearance: alert, in no apparent distress Head exam: Present: atraumatic, normocephalic, normal inspection Eye exam: Present: normal appearance, PERRL, EOMI. Absent: scleral icterus, conjunctival injection, periorbital swelling ENT exam: Present: normal exam, normal oropharynx, mucous membranes moist Neck exam: Present: normal inspection. Absent: tenderness, meningismus, lymphadenopathy Respiratory exam: Present: normal lung sounds bilaterally. Absent: respiratory distress, wheezes, rales, rhonchi, stridor Cardiovascular Exam: Present: regular rate, normal rhythm, normal heart sounds. Absent: systolic murmur, diastolic murmur, rubs, gallop, clicks GI/Abdominal exam: Present: soft, tenderness, normal bowel sounds. Absent: distended, guarding, rebound, rigid Back exam: Absent: CVA tenderness (R), CVA tenderness (L) Neurological exam: Present: alert Course Vital Signs 09/01/23 09/01/23 06:41 08:58 Temperature 97.6 F Pulse Rate 83 65 Respiratory 16 18 Rate Blood Pressure 111/80 122/78 O2 Sat by Pulse 97 98 Oximetry Medical Decision Making - Medical Decision Making Was pt. sent in by a medical professional or institution (, PA, [facility]TTS, urgent care, hospital, or halfway...) When possible be specific @ -No Did you speak to anyone other than the patient for history (EMS, parent, family, police, friend...)? What history was obtained from this source @ -No Did you review nursing and triage notes (agree or disagree)? Why? @ -I reviewed and agree with nursing and triage notes Were old charts reviewed (outside hosp., previous admission, EMS record, old EKG, old radiological studies, urgent care reports/EKG's, halfway records)? Report findings @ -No old charts were reviewed Differential Diagnosis (chest pain, altered mental status, abdominal pain women, abdominal pain men, vaginal bleeding, weakness, fever, dyspnea, syncope, headache, dizziness, GI bleed, back pain, seizure, CVA, palpatations, mental health, musculoskeletal)? @ -Differential Abdominal Pain Men: Appendicitis, cholecystitis, diverticulosis, ischemic bowel, pancreatitis, hepatitis, UTI, gastroenteritis, AAA, incarcerated hernia, bowel obstruction, constipation, inflammatory bowel, hepatitis, peptic ulcer disease, splenic infarction, perforated viscus, testicular torsion, this is not meant to be an all-inclusive list EKG interpreted by me (3pts min.). @ -None X-rays interpreted by me (1pt min.). @ -None done CT interpreted by me (1pt min.). @ -CT abdomen pelvis showing inflammation in the rectosigmoid region consistent with colitis U/S interpreted by me (1pt. min.). @ -None done What testing was considered but not performed or refused? (CT, X-rays, U/S, labs)? Why? @ -None What meds were considered but not given or refused? Why? @ -None Did you discuss the management of the patient with other professionals (professionals i.e. , PA, [facility]TTS, lab, RT, psych nurse, social service liaison, family lawyer, teacher, donor relations officer, watch caser)? Give summary @ -No Was smoking cessation discussed for >3mins.? @ -No Was critical care preformed (if so, how long)? @ -No Were there social determinants of health that impacted care today? How? (Home lessness, low income, unemployed, alcoholism, drug addiction, transportation, low edu. Level, literacy, decrease access to med. care, [facility], rehab)? @ -No Was there de-escalation of care discussed even if they declined (Discuss DNR or withdrawal of care, Hospice)? DNR status @ -No What co-morbidities impacted this encounter? (DM, HTN, Smoking, COPD, CAD, Cancer, CVA, ARF, Chemo, Hep., AIDS, mental health diagnosis, sleep apnea, morbid obesity)? @ -None Was patient admitted / discharged? Hospital course, mention meds given and route, prescriptions, significant lab abnormalities, going to OR and other pertinent info. @ -Discharge patient CT shows evidence of colitis there is no evidence of acute appendicitis. Patient feels improved after IV fluids and antiemetics patient is discharged in stable condition return pressure discussed. Undiagnosed new problem with uncertain prognosis? @ -No Drug Therapy requiring intensive monitoring for toxicity (Heparin, Nitro, Insulin, Cardizem)? @ -No Were any procedures done? @ -No Diagnosis/symptom? @ -Colitis Acute, or Chronic, or Acute on Chronic? @ -Acute Uncomplicated (without systemic symptoms) or Complicated (systemic symptoms)? @ -complicated Side effects of treatment? @ -No Exacerbation, Progression, or Severe Exacerbation? @ -No Poses a threat to life or bodily function? How? (Chest pain, [place], [place], pneumonia, PE, COPD, DKA, ARF, appy, cholecystitis, CVA, Diverticulitis, Homicidal, Suicidal, threat to staff... and all critical care pts) @ -No - Lab Data Result diagrams: 09/01/23 06:50 09/01/23 06:50 Lab Results 09/01/23 09/01/23 09/01/23 Range/Units 06:50 06:50 07:39 WBC 7.5 (3.8-10.6) k/uL RBC 5.67 (4.30-5.90) m/uL Hgb 17.0 (13.0-17.5) gm/dL Hct 48.4 (39.0-53.0) % MCV 85.4 (80.0-100.0) fL MCH 30.0 (25.0-35.0) pg MCHC 35.1 (31.0-37.0) g/dL RDW 12.7 (11.5-15.5) % Plt Count 258 (150-450) k/uL MPV 7.5 Neutrophils % 51 % Lymphocytes % 37 % Monocytes % 7 % Eosinophils % 3 % Basophils % 1 % Neutrophils # 3.8 (1.3-7.7) k/uL Lymphocytes # 2.8 (1.0-4.8) k/uL Monocytes # 0.5 (0-1.0) k/uL Eosinophils # 0.2 (0-0.7) k/uL Basophils # 0.1 (0-0.2) k/uL Sodium 140 (137-145) mmol/L Potassium 3.8 (3.5-5.1) mmol/L Chloride 109 H (98-107) mmol/L Carbon Dioxide 19 L (22-30) mmol/L Anion Gap 12 mmol/L BUN 14 (9-20) mg/dL Creatinine 0.82 (0.66-1.25) mg/dL Est GFR (CKD-EPI)AfAm >90 (>60 ml/min/1.73 sqM) Est GFR (CKD-EPI)NonAf >90 (>60 ml/min/1.73 sqM) Glucose 101 H (74-99) mg/dL Calcium 9.8 (8.4-10.2) mg/dL Total Bilirubin 1.5 H (0.2-1.3) mg/dL AST 30 (17-59) U/L ALT 27 (4-49) U/L Alkaline Phosphatase 76 (38-126) U/L Total Protein 7.8 (6.3-8.2) g/dL Albumin 4.8 (3.5-5.0) g/dL Lipase 105 (23-300) U/L Urine Color Yellow Urine Appearance Clear (Clear) Urine pH 6.5 (5.0-8.0) Ur Specific [place] >1.050 H (1.001-1.035) Urine Protein Trace H (Negative) Urine Glucose (UA) Negative (Negative) Urine Ketones Negative (Negative) Urine Blood Negative (Negative) Urine Nitrite Negative (Negative) Urine Bilirubin Negative (Negative) Urine Urobilinogen <2.0 (<2.0) mg/dL Ur Leukocyte Esterase Negative (Negative) Disposition Clinical Impression: Colitis Disposition: HOME SELF-CARE Condition: Stable Instructions (If sedation given, give patient instructions): Colitis (ED) Additional Instructions: Please return to the Emergency Department if symptoms worsen or any other concerns. Is patient prescribed a controlled substance at d/c from ED?: No Referrals: Gordon Restrepo MD [Primary Care Provider] - 1-2 days Naomie Solis MD [STAFF PHYSICIAN] - 1-2 days Time of Disposition: 08:27
[2023-09-01 07:16] LABS: Basophils # (A) 0.1 k/uL (0-0.2); Basophils % (A) 1 %; Eosinophils # (A) 0.2 k/uL (0-0.7); Eosinophils % (A) 3 %; HCT 48.4 % (39.0-53.0); Lymphocytes # (A) 2.8 k/uL (1.0-4.8); Lymphocytes % (A) 37 %; MCHC 35.1 g/dL (31.0-37.0); MCV 85.4 fL (80.0-100.0); Mean Platelet Volume 7.5; Monocytes # (A) 0.5 k/uL (0-1.0); Monocytes % (A) 7 %; Neutrophils # (A) 3.8 k/uL (1.3-7.7); Neutrophils % (A) 51 %; Platelet Count 258 k/uL (150-450); RBC 5.67 m/uL (4.30-5.90); RDW 12.7 % (11.5-15.5); WBC 7.5 k/uL (3.8-10.6)
[2023-09-01 07:27] LABS: ALT 27 U/L (4-49); AST 30 U/L (17-59); African American GFR (CKD) >90 (>60 ml/min/1.73 sqM); Albumin 4.8 g/dL (3.5-5.0); Alkaline Phosphatase 76 U/L (38-126); Anion Gap 12 mmol/L; Blood Urea Nitrogen 14 mg/dL (9-20); Calcium 9.8 mg/dL (8.4-10.2); Carbon Dioxide 19 mmol/L (22-30); Chloride 109 mmol/L (98-107); Glucose 101 mg/dL (74-99); Lipase 105 U/L (23-300); Non-African American GFR(CKD) >90 (>60 ml/min/1.73 sqM); Potassium 3.8 mmol/L (3.5-5.1); Sodium 140 mmol/L (137-145); Total Bilirubin 1.5 mg/dL (0.2-1.3); Total Protein 7.8 g/dL (6.3-8.2)
[2023-09-01] MEDS: ONDANSETRON 4 MG/2 ML VIAL IVP STA (07:39)
--- NOTE | 2023-09-01 07:41 | CT ---
EXAMINATION TYPE: CT abdomen pelvis w con DATE OF EXAM: 09/01/2023 COMPARISON: 04/19/2020 INDICATION: RLQ pain, fever DLP: 901.7 mGycm, Automated exposure control for dose reduction was used. CONTRAST: 100 mL of Isovue 300. Study performed without Oral Contrast TECHNIQUE: Axial images were obtained from above the diaphragm to the pubic rami in the axial plane a t 5 mm thick sections. Reconstructed images are reviewed on the computer in the coronal plane. FINDINGS: Limited CT sections are obtained the lung bases. The lung bases are clear. CT ABDOMEN: Liver: Normal Spleen: Normal Pancreas: Normal Adrenal glands: The adrenal glands are normal. Gallbladder: Normal Kidneys: No masses are evident. No hydronephrosis is present. No cysts are present. Delayed images were obtained through the kidneys, which remain unremarkable. Aorta: Normal Inferior vena cava: Normal. CT PELVIS: There may be some fluid in the rectum. Mild wall thickening of the distal sigmoid colon and rectum is present. No adjacent inflammatory changes are evident. No dilated loops of bowel are evident. The st udies lateral contrast limiting bowel evaluation. Appendix: Normal as visualized. Urinary bladder: Decompressed with limited evaluation Genitourinary structures: Prostate appears normal Osseous structures: No suspicious lytic or sclerotic lesions. IMPRESSION: 1. Mild diffuse wall thickening rectosigmoid region with an air-fluid level. No adjacent inflammator y changes. Correlate for colitis. 2. CT abdomen and pelvis otherwise appears within normal limits. 3. Normal appendix.
[2023-09-01] MEDS: SODIUM CHLORIDE 0.9% 1,000 ML IV STA (07:43)
[2023-09-01] MEDS: SODIUM CHLORIDE 0.9% 500 ML 500 ML IV STA (07:43)
[2023-09-01 07:55] LABS: Appearance,Urine Clear (Clear); Bilirubin,Urine Negative (Negative); Blood,Urine Negative (Negative); Color,Urine Yellow; Glucose,Urine (UA) Negative (Negative); Ketones,Urine Negative (Negative); Leukocyte Esterase,Urine Negative (Negative); Nitrite,Urine Negative (Negative); PH, Urine 6.5 (5.0-8.0); Protein,Urine Trace (Negative); Urobilinogen,Urine <2.0 mg/dL (<2.0)
[2023-09-01 08:00] LABS: Specific Gravity,Urine >1.050 (1.001-1.035)
[2023-09-01 09:12] VITALS: BP 122/78; PULSE 65; RESP 18
== END 2023-09-01 09:00 | disposition home or self-care (01) ==
LOC: EC 06:38
DX: K52.9 Noninfective gastroenteritis and colitis, unspecified (principal); F12.90 Cannabis use, unspecified, uncomplicated; Z86.59 Personal history of other mental and behavioral disorders; Z87.891 Personal history of nicotine dependence; Z91.030 Bee allergy status
CPT/HCPCS: 36415; 80053; 83690; 85025; 81003; 74177; 99285; 96374; 96361; J2405; Q9967; 99284